=== PATIENT | male | born 1945 | race Caucasian/White ===

== ENCOUNTER → 2017-12-22 09:59 | Outpatient (CLI) | payer MEDICARE, SELFPAY ==
[2017-12-22 11:30] LABS: AST(SGOT) 18 U/L (15-37); Alanine Aminotransfer ALT/SGPT 26 U/L (16-61); Albumin, Serum 3.6 g/dL (3.2-5.0); Alkaline Phosphatase 54 U/L (45-117); Bilirubin, Direct 0.18 mg/dL (0.00-0.30); Cholesterol 123 mg/dL (200); Globulin 3.1 g/dL (2.2-4.2); High Density Lipoprotein 30 mg/dL; Protein, Total 6.7 g/dL (6.4-8.2); Triglycerides 210 mg/dL; Very Low Density Lipoprotein 42 mg/dL (5-40)
== END ==
PROVIDERS: Family Provider Family Medicine; PCP Family Medicine; Visit Provider Internal Medicine Cardiovascular Disease
DX: E78.5 Hyperlipidemia, unspecified (principal); Z79.899 Other long term (current) drug therapy
CPT/HCPCS: 36415; 80061; 80076

== ENCOUNTER → 2018-01-18 06:23 | Outpatient (CLI) | payer MEDICARE, SELFPAY ==
--- NOTE | 2018-01-18 06:25 | ECHOD_ITS ---
Reason For Study: CAD, CABG Procedure This was a 2D Doppler, Color Flow transthoracic echocardiogram. Exam performed in department. Left Ventricle Normal LV size. The estimated ejection fraction is 50 %. Left ventricular systolic function is lower limits of normal. Transmitral doppler flow suggestive of elevated left atrial pressure. No regional wall motion abnormalities noted. Mitral Valve Normal mitral valve. Mild (1+) eccentric mitral valve insufficiency. Tricuspid Valve Normal tricuspid valve. Mild (1+) tricuspid valve insufficiency. Pulmonary artery systolic pressure is 25 mmHg. Aortic Valve Normal aortic valve. Trisinus/trileaflet aortic valve. Pulmonic Valve Normal pulmonic valve. Great Vessels Normal aortic root. The pulmonary artery is normal size. Normal inferior vena cava. Pericardium/Pleural No pericardial effusion. Medication Diluted definity 2ml given slow IV push to enhance endocardial definition. MMode/2D Measurements & Calculations LVIDd: 5.6 cm IVSd: 1.0 cm Ao root diam: 3.5 cm LVIDs: 4.0 cm LVPWd: 0.93 cm LA dimension: 4.3 cm FS: 29.6 % LAV(MOD-bp): 53.8 ml LA A4 area: 20.4 cm2 RA A4 area: 18.2 cm2 LAV(MOD-bp) Indexed: 24.5 ml/m2 LAV(MOD-sp2): 47.8 ml LAV(MOD-sp4): 60.8 ml Doppler Measurements & Calculations MV E max kishor: 55.2 cm/sec Lat Peak E' Kishor: 7.6 cm/sec Med Peak E' Kishor: 4.6 cm/sec MV A max kishor: 60.5 cm/sec E/E' lat: 7.2 E/E' med: 12.0 MV E/A: 0.91 Ao V2 max: 126.6 cm/sec LV V1 max: 109.0 cm/sec PA V2 max: 150.1 cm/sec Ao max P.4 mmHg LV V1 max P.8 mmHg TR max kishor: 227.1 cm/sec TR max P.6 mmHg Interpretation Summary Normal LV size. The estimated ejection fraction is 50 %. Left ventricular systolic function is lower limits of normal. Transmitral doppler flow suggestive of elevated left atrial pressure. Mild (1+) eccentric mitral valve insufficiency. Mild (1+) tricuspid valve insufficiency. Ordering Physician: Shai Rodriguez Referring Physician: Paulo Tate Performed By: Tamiko Escobedo RDCS
--- NOTE | 2018-01-18 15:24 | STRESSREP ---
Stress Test Report Exercise myocardial perfusion stress test. 72-year-old man with a history of coronary artery disease. Medications atenolol ramipril aspirin. Stress protocol: Resting EKG demonstrates normal sinus rhythm with a rate of 57 bpm incomplete left bundle branch block is noted. The patient exercised according to the regular Milind protocol for total duration of 9 minutes completing stage III of the Milind protocol the maximum heart rate attained was 1 and 37 bpm was 91% maximum predicted heart rate the maximum workload attained was 10.1 metabolic equivalents. At rest there were no ST or T-wave changes noted suggest ischemia peak exercise upsloping ST changes only were noted with no meet the criteria for ischemia. Incomplete left bundle branch block was noted. No clinical angina was present. The test was terminated due to leg fatigue. The resting blood pressure is 140/82 with a peak blood pressure 174/70. Myocardial perfusion protocol. 14.6 mCi of technetium 99m sestamibi was injected at rest. The patient exercised according to regular Milind protocol for 9 minutes. At peak exercise 44.4 mCi of technetium 99m sestamibi was injected stress images were obtained stress and rest images were reconstructed and compared in the short axis vertical long and horizontal long axis. Gated images were also obtained. Perfusion SPECT analysis. Review of the images demonstrate normal uptake of tracer noted in all areas of the myocardium with a small area of the apex with reduced perfusion. This is present on the stress and rest images to a similar extent. No areas of reversibility are noted suggest ischemia. Previous apical infarct cannot be completely excluded. Gated SPECT analysis: The gated ejection fraction is noted to be 60%. Conclusion: Exercise myocardial perfusion stress test with no evidence of ischemia at a high workload. Excellent functional aerobic capacity. No clinical angina noted. Preserved ejection fraction.
== END ==
PROVIDERS: Family Provider Family Medicine; PCP Family Medicine; Visit Provider Internal Medicine Cardiovascular Disease
DX: I25.10 Atherosclerotic heart disease of native coronary artery without angina pectoris (principal); Z95.1 Presence of aortocoronary bypass graft
CPT/HCPCS: 78452; 93017; 93306; A9500; Q9957; A4216

== ENCOUNTER → 2018-12-24 08:57 | Outpatient (CLI) | payer MEDICARE, SELFPAY ==
[2017-12-25 13:06] VITALS: BMI 33.0
[2018-12-24 10:06] LABS: AST(SGOT) 18 U/L (15-37); Alanine Aminotransfer ALT/SGPT 25 U/L (16-61); Albumin, Serum 3.9 g/dL (3.2-5.0); Alkaline Phosphatase 58 U/L (45-117); Bilirubin, Direct 0.22 mg/dL (0.00-0.30); Cholesterol 122 mg/dL (200); Globulin 3.1 g/dL (2.2-4.2); High Density Lipoprotein 39 mg/dL; Triglycerides 168 mg/dL; Very Low Density Lipoprotein 34 mg/dL (5-40)
== END ==
PROVIDERS: Family Provider Family Medicine; PCP Family Medicine; Referring Provider Internal Medicine Cardiovascular Disease; Visit Provider Internal Medicine Cardiovascular Disease
DX: E78.5 Hyperlipidemia, unspecified (principal); Z79.899 Other long term (current) drug therapy
CPT/HCPCS: 36415; 80061; 80076

== ENCOUNTER → 2019-02-28 13:01 | Outpatient (CLI) | payer MEDICARE, SELFPAY ==
[2018-12-28 13:08] VITALS: BMI 33.5
--- NOTE | 2019-02-28 13:45 | MRI_ITS ---
STUDY: MRI BRAIN WITH AND WITHOUT CONTRAST (ATTENTION INTERNAL AUDITORY CANALS - I.A.C.'s) REASON FOR EXAM: Male, 73 years old. Left-sided hearing loss TECHNIQUE: Standardized multiplanar fat and water weighted pulse sequences were obtained. 20 IV Dotarem was administered for the contrast portion of the examination. COMPARISON: None. FINDINGS: Normal bilateral temporal bones. Normal bilateral internal auditory canals. There is no demonstrated intracanalicular or cisternal vestibular schwannoma (acoustic neuroma). There is no enhancement of the bilateral VIIth or VIIIth cranial nerves. Normal bilateral cochlea, vestibules and semicircular canals. Normal size of the ventricles and extra-axial spaces for the patient's age. There are a limited number of small white matter hyperintensities, distributed throughout the deep white matter tracts of the cerebral hemispheres, consistent with mild chronic white matter ischemic changes. Normal bilateral basal ganglia. Normal thalami. Normal flow voids within the major intracranial circulation suggesting patency by spin echo criteria. Normal venous enhancement. There is no enhancing intra-axial or extra-axial abnormality. There is no extra-axial fluid accumulation. Normal sella turcica, pituitary gland, infundibular stalk, optic chiasm and hypothalamus. Normal tectal plate and pineal gland. Normal midbrain, rosales and medulla. Normal cerebellum. Normal basal cisterns. No demonstrated orbital abnormality, within the constraints of a routine brain study. Bilateral ethmoid sinus disease. Normal calvarium and skull base. Normal visualized soft tissue structures. Normal visualized upper cervical spine. MRI/Brain W/WO Contrast IMPRESSION: Normal unenhanced and enhanced MRI of the bilateral internal auditory canals (I.A.C's). No evidence of acute intra-axial pathology. Electronically Signed: Ronnie Rodriguez MD at 15:28 EDT Tel , Service support ,
[2019-02-28 13:46] LABS: EGFR FINGERSTICK > 60.0000 mL/min (>60)
== END ==
PROVIDERS: Family Provider Family Medicine; PCP Family Medicine; Referring Provider Otolaryngology; Visit Provider Otolaryngology
DX: H91.90 Unspecified hearing loss, unspecified ear (principal)
CPT/HCPCS: 70553; A9575

== ENCOUNTER 2019-10-18 16:14 | Emergency (ER) | payer MEDICARE, SELFPAY ==
[2018-12-28 13:08] VITALS: BMI 33.5
[2019-10-18 16:16] VITALS: PULSE 65; RESP 16; TEMP 36.8; O2SAT 96; BMI 33.5
[2019-10-18 16:22] VITALS: BP 140/89
--- NOTE | 2019-10-18 16:24 | RAD_ITS ---
STUDY: X-RAY CHEST REASON FOR EXAM: Male, 73 years old. Chest pain TECHNIQUE: Frontal and lateral views of the chest COMPARISON: 07/12/2011 FINDINGS: The lungs are clear. There are no pleural effusions. There is no pneumothorax. The heart is normal in size. Again noted are sternotomy wires. The visualized osseous structures are within normal limits. RAD/Chest PA and Lateral IMPRESSION: No acute thoracic pathology. Electronically Signed: Gino Newsome, at 16:56 EST Tel , Service support ,
--- NOTE | 2019-10-18 16:24 | EKG12_ITS ---
Test Reason : Blood Pressure : / mmHG Vent. Rate : 064 BPM Atrial Rate : 064 BPM P-R Int : 202 ms QRS Dur : 136 ms QT Int : 412 ms P-R-T Axes : -09 -71 015 degrees QTc Int : 425 ms Normal sinus rhythm Left axis deviation Non-specific intra-ventricular conduction block Inferior infarct , age undetermined Cannot rule out Anterior infarct , age undetermined Abnormal ECG Confirmed by GUANACO MCALLISTER ([id number]), general expeditor BRIE BOYD ([id number]) on 10/20/2019 10:43:58 AM Referred By: RICHIE Confirmed By:GUANACO MCALLISTER
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
[2019-10-18 18:07] VITALS: BP 125/76; PULSE 57; RESP 18; O2SAT 91
== END 2019-10-18 18:57 | disposition home or self-care (01) ==
PROVIDERS: Emergency Provider Emergency Medicine; Family Provider Family Medicine; PCP Family Medicine
DX: R07.9 Chest pain, unspecified (principal); J06.9 Acute upper respiratory infection, unspecified; I25.10 Atherosclerotic heart disease of native coronary artery without angina pectoris; I10 Essential (primary) hypertension; E78.5 Hyperlipidemia, unspecified; Z79.82 Long term (current) use of aspirin; Z79.899 Other long term (current) drug therapy; Z86.718 Personal history of other venous thrombosis and embolism; Z95.5 Presence of coronary angioplasty implant and graft
CPT/HCPCS: 71046; 84484; 93005; 99284; A4216

== ENCOUNTER → 2019-12-24 09:03 | Outpatient (CLI) | payer MEDICARE, SELFPAY ==
[2019-12-24 10:30] LABS: AST(SGOT) 16 U/L (15-37); Alanine Aminotransfer ALT/SGPT 22 U/L (16-61); Albumin, Serum 3.7 g/dL (3.2-5.0); Alkaline Phosphatase 54 U/L (45-117); Bilirubin, Direct 0.14 mg/dL (0.00-0.30); Cholesterol 127 mg/dL (200); Globulin 3.1 g/dL (2.2-4.2); High Density Lipoprotein 31 mg/dL; Protein, Total 6.8 g/dL (6.4-8.2); Triglycerides 225 mg/dL; Very Low Density Lipoprotein 45 mg/dL (5-40)
== END ==
PROVIDERS: PCP Family Medicine; Referring Provider Internal Medicine Cardiovascular Disease; Visit Provider Internal Medicine Cardiovascular Disease
DX: E78.5 Hyperlipidemia, unspecified (principal)
CPT/HCPCS: 36415; 80061; 80076

== ENCOUNTER → 2020-05-31 | Outpatient (CLI) | payer MEDICARE, SELFPAY ==
[2020-02-09 15:20] VITALS: BMI 31.2
== END | disposition home or self-care (01) ==
LOC: LABSPEC 17:48
PROVIDERS: PCP Family Medicine; Referring Provider Nurse Practitioner Primary Care; Visit Provider Nurse Practitioner Primary Care
DX: Z11.59 Encounter for screening for other viral diseases (principal)
CPT/HCPCS: 87635; 94799; U0003

== ENCOUNTER → 2020-07-10 08:34 | Outpatient (CLI) | payer MEDICARE, SELFPAY ==
[2020-02-09 15:20] VITALS: BMI 31.2
[2020-07-10 09:20] LABS: AST(SGOT) 17 U/L (15-37); Alanine Aminotransfer ALT/SGPT 24 U/L (16-61); Albumin, Serum 3.8 g/dL (3.2-5.0); Alkaline Phosphatase 59 U/L (45-117); Bilirubin, Direct 0.26 mg/dL (0.00-0.30); Cholesterol 116 mg/dL (200); Globulin 3.1 g/dL (2.2-4.2); High Density Lipoprotein 36 mg/dL; Protein, Total 6.9 g/dL (6.4-8.2); Triglycerides 163 mg/dL; Very Low Density Lipoprotein 33 mg/dL (5-40)
== END ==
PROVIDERS: PCP Family Medicine; Referring Provider Internal Medicine Cardiovascular Disease; Visit Provider Internal Medicine Cardiovascular Disease
DX: E78.5 Hyperlipidemia, unspecified (principal)
CPT/HCPCS: 36415; 80061; 80076

== ENCOUNTER → 2021-01-31 08:37 | Outpatient (CLI) | payer MEDICARE, SELFPAY ==
[2020-02-09 15:20] VITALS: BMI 31.2
[2021-01-31 09:52] LABS: AST(SGOT) 16 U/L (15-37); Alanine Aminotransfer ALT/SGPT 22 U/L (16-61); Albumin, Serum 3.6 g/dL (3.2-5.0); Alkaline Phosphatase 56 U/L (45-117); Bilirubin, Direct 0.19 mg/dL (0.00-0.30); Cholesterol 119 mg/dL (200); Globulin 3.1 g/dL (2.2-4.2); High Density Lipoprotein 39 mg/dL; Protein, Total 6.7 g/dL (6.4-8.2); Triglycerides 165 mg/dL; Very Low Density Lipoprotein 33 mg/dL (5-40)
== END ==
PROVIDERS: PCP Family Medicine; Referring Provider Internal Medicine Cardiovascular Disease; Visit Provider Internal Medicine Cardiovascular Disease
DX: E78.5 Hyperlipidemia, unspecified (principal)
CPT/HCPCS: 36415; 80061; 80076

== ENCOUNTER → 2022-02-22 | Outpatient (CLI) | payer MEDICARE, SELFPAY ==
[2022-02-22 10:09] LABS: AST(SGOT) 15 U/L (15-37); Alanine Aminotransfer ALT/SGPT 21 U/L (16-61); Albumin, Serum 3.6 g/dL (3.2-5.0); Alkaline Phosphatase 48 U/L (45-117); Bilirubin, Direct 0.25 mg/dL (0.00-0.30); Cholesterol 114 mg/dL (200); High Density Lipoprotein 41 mg/dL; Protein, Total 6.6 g/dL (6.4-8.2); Triglycerides 84 mg/dL; Very Low Density Lipoprotein 17 mg/dL (5-40)
== END | disposition home or self-care (01) ==
LOC: LAB 08:55
PROVIDERS: PCP Family Medicine; Referring Provider Internal Medicine Cardiovascular Disease; Visit Provider Internal Medicine Cardiovascular Disease
DX: E78.00 Pure hypercholesterolemia, unspecified (principal)
CPT/HCPCS: 36415; 80061; 80076

== ENCOUNTER → 2022-03-31 | Outpatient (CLI) | payer MEDICARE, SELFPAY ==
--- NOTE | 2022-03-31 18:05 | STRESSREP ---
Stress Test Report Exercise myocardial perfusion stress test. 76-year-old man with a history of coronary artery disease. Stress protocol: Resting EKG demonstrates normal sinus rhythm with a rate of 55 bpm and an incomplete left bundle branch block. Resting blood pressure is 128/80 mmHg. Patient exercised according to regular Milind protocol for total duration of 10 minutes. The maximum heart rate attained was 125 bpm which was 85% of max impacted heart rate the maximum workload was 13.4 metabolic equivalents. Patient completed 1 minute into stage IV of the Milind protocol. At rest there were no ST or T wave changes noted to suggest ischemia at peak exercise upsloping ST changes were noted which did not meet the criteria for ischemia. The incomplete left bundle branch block pattern was noted. No chest pain was noted the test was terminated due to target heart rate being achieved. The peak blood pressure was 160/74 mmHg. Myocardial perfusion protocol. 14.4 mCi of technetium 99m sestamibi was injected at rest. The patient exercised according to regular Milind protocol for total duration of 10 minutes. At peak exercise 44.7 mCi of technetium 99m sestamibi was injected stress images were obtained stress and rest images were reconstructed in comparing the short axis vertical long and horizontal long axis. Gated images were also obtained. Perfusion SPECT analysis: Review of the stress images demonstrate normal uptake of tracer noted in all areas of the myocardium except for the distal anterior wall and apex with reduced perfusion. The rest of the shetty appear to be normal. The resting images demonstrate a similar pattern with minimal improvement suggesting a previous distal anterior apical infarct with minimal hany-infarct ischemia present. Gated SPECT analysis: The gated ejection fraction is 59%. Conclusion: Exercise myocardial perfusion stress test with no significant ischemia noted. 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 Excellent functional capacity Preserved ejection fraction.
== END | disposition home or self-care (01) ==
PROVIDERS: PCP Family Medicine; Referring Provider Internal Medicine Cardiovascular Disease; Visit Provider Internal Medicine Cardiovascular Disease
DX: I25.10 Atherosclerotic heart disease of native coronary artery without angina pectoris (principal); Z95.1 Presence of aortocoronary bypass graft
CPT/HCPCS: 78452; 93017; A9500

== ENCOUNTER → 2022-04-02 | Outpatient (CLI) | payer MEDICARE, SELFPAY ==
--- NOTE | 2022-04-02 07:51 | ECHOD_ITS ---
Reason For Study: S/P CABG Procedure This was a 2D Doppler, Color Flow transthoracic echocardiogram. Exam performed in department. Left Ventricle Normal LV size. The estimated ejection fraction is 40 %. Stage 1 diastolic dysfunction. There is mild global hypokinesis of the left ventricle. Right Ventricle Normal RV size. Normal systolic function. Atria Normal left atrium. Normal right atrium. Mitral Valve Normal mitral valve. Trivial eccentric mitral valve insufficiency. Tricuspid Valve Normal tricuspid valve. Mild (1+) tricuspid valve insufficiency. Pulmonary artery systolic pressure is 26 mmHg. Aortic Valve Normal aortic valve. Trisinus/trileaflet aortic valve. Pulmonic Valve Normal pulmonic valve. Trivial pulmonic valve insufficiency. Great Vessels Normal aortic root. The pulmonary artery is normal size. Normal inferior vena cava. Pericardium/Pleural No pericardial effusion. MMode/2D Measurements & Calculations LVIDd: 5.4 cm IVSd: 0.91 cm Ao root diam: 3.4 cm LVIDs: 3.8 cm LVPWd: 0.93 cm RVDd: 4.2 cm FS: 30.0 % LAV(MOD-bp): 56.5 ml LVAd ap4: 34.6 cm2 SV(MOD-sp4): 64.9 ml LAV(MOD-bp) Indexed: 27.1 ml/m2 LVLd ap4: 7.8 cm LAV(MOD-sp2): 51.8 ml EDV(MOD-sp4): 125.5 ml LAV(MOD-sp4): 55.9 ml EDV(sp4-el): 131.0 ml LVAs ap4: 22.2 cm2 LVLs ap4: 7.0 cm ESV(MOD-sp4): 60.6 ml ESV(sp4-el): 60.2 ml EF(MOD-sp4): 51.7 % EF(sp4-el): 54.0 % SV(sp4-el): 70.8 ml LA A4 area: 19.2 cm2 LA dimension(2D): 4.9 cm RA A4 area: 19.2 cm2 Time Measurements MV dec time: 0.23 sec Doppler Measurements & Calculations MV E max kishor: 65.3 cm/sec Lat Peak E' Kishor: 11.1 cm/sec Med Peak E' Kishor: 5.7 cm/sec MV A max kishor: 77.4 cm/sec E/E' lat: 5.9 E/E' med: 11.5 MV E/A: 0.84 Ao V2 max: 128.2 cm/sec LV V1 max: 116.1 cm/sec PA V2 max: 169.6 cm/sec Ao max P.6 mmHg LV V1 max P.4 mmHg PI end-d kishor: 91.8 cm/sec TR max kishor: 238.6 cm/sec TR max P.8 mmHg ECHO/Echo Complete Interpretation Summary Normal LV size. The estimated ejection fraction is 40 %. There is mild global hypokinesis of the left ventricle. Stage 1 diastolic dysfunction. Compared to previous study, the left ventricular systolic function has worsened .. Ordering Physician: Shai Rodriguez Referring Physician: LEONARDO BARRAGAN Performed By: Tova Crabtree RDCS
== END | disposition home or self-care (01) ==
PROVIDERS: PCP Family Medicine; Referring Provider Internal Medicine Cardiovascular Disease; Visit Provider Internal Medicine Cardiovascular Disease
DX: I25.10 Atherosclerotic heart disease of native coronary artery without angina pectoris (principal); Z95.1 Presence of aortocoronary bypass graft
CPT/HCPCS: 93306

== ENCOUNTER → 2022-07-14 | Outpatient (CLI) | payer MEDICARE, SELFPAY ==
--- NOTE | 2022-07-14 14:09 | ECHOL_ITS ---
Version 2 Reason For Study: CMP Procedure This was a limited 2D transthoracic echocardiogram. Exam performed in department. Left Ventricle Normal LV size. Left ventricular systolic function is normal. The estimated ejection fraction is 45 %. There is mild global hypokinesis of the left ventricle. Right Ventricle Normal RV size. Normal systolic function. Atria Normal left atrium. Normal right atrium. Mitral Valve Normal mitral valve. Tricuspid Valve Normal tricuspid valve. Aortic Valve Normal aortic valve. Trisinus/trileaflet aortic valve. Pulmonic Valve Normal pulmonic valve. Great Vessels Normal aortic root. The pulmonary artery is normal size. Normal inferior vena cava. Pericardium/Pleural No pericardial effusion. MMode/2D Measurements & Calculations LVIDd: 5.8 cm IVSd: 1.3 cm Ao root diam: 3.0 cm LVIDs: 4.1 cm LVPWd: 0.97 cm FS: 29.0 % LAV(MOD-bp): 75.1 ml LVAd ap4: 36.1 cm2 SV(MOD-sp4): 74.9 ml LAV(MOD-bp) Indexed: 36.0 ml/m2 LVLd ap4: 8.4 cm LAV(MOD-sp2): 79.2 ml EDV(MOD-sp4): 131.8 ml LAV(MOD-sp4): 64.0 ml EDV(sp4-el): 132.1 ml LVAs ap4: 22.1 cm2 LVLs ap4: 7.4 cm ESV(MOD-sp4): 57.0 ml ESV(sp4-el): 56.3 ml EF(MOD-sp4): 56.8 % EF(sp4-el): 57.4 % SV(sp4-el): 75.8 ml LA A4 area: 21.6 cm2 LA dimension(2D): 4.9 cm RA A4 area: 23.6 cm2 ECHO/Echo, Limited Study Interpretation Summary Normal LV size. Left ventricular systolic function is normal. The estimated ejection fraction is 45 %. There is mild global hypokinesis of the left ventricle. Trisinus/trileaflet aortic valve. Compared to previous study, the left ventricular systolic function is the same. . Ordering Physician: Shai Rodriguez Performed By: Marilee Starks RCS
== END | disposition home or self-care (01) ==
PROVIDERS: PCP Family Medicine; Visit Provider Internal Medicine Cardiovascular Disease
DX: I42.8 Other cardiomyopathies (principal); I25.10 Atherosclerotic heart disease of native coronary artery without angina pectoris; I10 Essential (primary) hypertension; E78.00 Pure hypercholesterolemia, unspecified; Z95.1 Presence of aortocoronary bypass graft
CPT/HCPCS: 93308

== ENCOUNTER → 2023-04-30 | Outpatient (CLI) | payer MEDICARE, SELFPAY ==
[2023-04-30 15:15] LABS: AST(SGOT) 15 U/L (15-37); Alanine Aminotransfer ALT/SGPT 19 U/L (16-61); Albumin, Serum 3.5 g/dL (3.2-5.0); Alkaline Phosphatase 47 U/L (45-117); Bilirubin, Direct 0.23 mg/dL (0.00-0.30); Cholesterol 105 mg/dL (200); High Density Lipoprotein 39 mg/dL; Protein, Total 6.5 g/dL (6.4-8.2); Triglycerides 147 mg/dL; Very Low Density Lipoprotein 29 mg/dL (5-40)
== END | disposition home or self-care (01) ==
LOC: LAB 13:33
PROVIDERS: PCP Family Medicine; Referring Provider Internal Medicine Cardiovascular Disease; Visit Provider Internal Medicine Cardiovascular Disease
DX: E78.00 Pure hypercholesterolemia, unspecified (principal)
CPT/HCPCS: 36415; 80061; 80076

== ENCOUNTER → 2024-05-10 | Outpatient (CLI) | payer MEDICARE, SELFPAY ==
[2024-05-10 09:46] LABS: AST(SGOT) 13 U/L (15-37); Alanine Aminotransfer ALT/SGPT 19 U/L (16-61); Albumin, Serum 3.5 g/dL (3.2-5.0); Alkaline Phosphatase 49 U/L (45-117); Bilirubin, Direct 0.25 mg/dL (0.00-0.30); Cholesterol 102 mg/dL (200); High Density Lipoprotein 39 mg/dL; Protein, Total 6.5 g/dL (6.4-8.2); Triglycerides 112 mg/dL; Very Low Density Lipoprotein 22 mg/dL (5-40)
== END | disposition home or self-care (01) ==
LOC: LAB 08:20
PROVIDERS: PCP Family Medicine; Referring Provider Nurse Practitioner Family; Visit Provider Nurse Practitioner Family
DX: E78.00 Pure hypercholesterolemia, unspecified (principal); I25.10 Atherosclerotic heart disease of native coronary artery without angina pectoris
CPT/HCPCS: 36415; 80061; 80076

== ENCOUNTER 2024-10-08 15:36 | Emergency (ER) | payer MEDICARE, SELFPAY ==
[2024-10-08 15:38] VITALS: BP 141/91; PULSE 71; RESP 18; TEMP 35.5; O2SAT 100; BMI 29.0
[2024-10-08 17:37] VITALS: BP 138/79; PULSE 60; RESP 18; O2SAT 98
--- NOTE | 2024-10-08 17:38 | CT_ITS ---
EXAMINATION : Head CT w/out contrast HISTORY : confusion, fall COMPARISON : None. TECHNIQUE : Multiple contiguous axial images were obtained from the skull base to the vertex without intravenous contrast. A radiation dose optimization technique was used for this scan. FINDINGS : There is no evidence for acute intracranial hemorrhage, mass effect, or midline shift. There is no extra-axial fluid collection. There are periventricular white matter changes consistent with chronic microvascular ischemic disease. There is sulcal widening and ventricular enlargement consistent with cerebral atrophy. There is normal slater-white differentiation, without CT evidence of acute ischemia or infarct. Left frontal encephalomalacia. The skull base and calvarium are unremarkable. The orbits are unremarkable. The paranasal sinuses are clear. The mastoid air cells are well-aerated. The soft tissues are unremarkable. CT/Brain/Head without Contrast IMPRESSION: No acute intracranial abnormality. Left frontal encephalomalacia. Chronic involutional and ischemic changes of the brain. Electronically Signed: Maurice Ray MD at 19:57 EST ,
--- NOTE | 2024-10-08 17:38 | CT_ITS ---
INDICATION: pain, fall EXAMINATION: CT CERVICAL SPINE - CT Spine Cervical W/O Contrast Injection TECHNIQUE: Helically acquired images were obtained of the cervical spine. 2D reformatted images were reviewed. A radiation dose optimization technique was used for this scan. IV Contrast dosage and agent: None. COMPARISON: None. FINDINGS: VERTEBRAE: No fracture or traumatic subluxation. No discrete lytic or blastic abnormality. Normal alignment. Normal craniocervical junction and cervicothoracic junction. DISCS and SPINAL CANAL: Moderate multilevel degenerative disease and spondylosis. No critical stenosis. NECK SOFT TISSUES: No prevertebral soft tissue swelling. There is no cervical adenopathy. LUNG APICES: Clear. CT/Spine Cervical without Contras IMPRESSION: No evidence of acute cervical spinal fracture or spondylolisthesis. Moderate multilevel degenerative disc disease and spondylosis. Electronically Signed: Maurice Ray MD at 19:59 EST ,
--- NOTE | 2024-10-08 17:39 | EDS_ITS ---
HPI History of Present Illness Chief Complaint: Confusion Informant: patient and spouse/S.O. Narrative Narrative: Patient is a 78-year-old male with history of nonischemic cardiomyopathy, coronary artery disease status post CABG 2003, hypertension hyperlipidemia p resenting with for concern of increased confusion. Patient has been having issues with right-sided neck stiffness and pain rating to his back for the past 2 weeks. He initially was seen at his primary care office on September 26 where he was given a Medrol Dosepak and started on Flexeril 5 mg. He states that he started to improve however over the weekend for [place] he tripped over a dog gate laying on his right side. The pain returned. They are going out of town tomorrow to [place] for a and they wanted to make sure he is fine to travel. They had increased him to 10 mg of Flexeril which he started yesterday. Today patient seems more confused. states he always seems like he is drunk but he has not been drinking. States his walking is slouching, his speech is more convoluted and he is messing up things. He seems foggy. She does note that his balance has been off for a little bit of time. She thinks it might be the medication with increase in strength and wanted to make sure expressions are plan ongoing on time. He denies any fever chills, chest pain, shortness of breath, nausea or vomiting or urinary symptoms. No report of any URI symptoms or night sweats. No sick contacts reported. When he fell this last weekend he did not hit his head but did land on his right side. He is not on any blood thinners. Does report some chronic constipation but no acute change in that. [facility] Medical History Non-ischemic cardiomyopathy Essential (primary) hypertension Atherosclerosis of coronary artery of [place] heart without angina pectoris Hyperlipidemia Old myocardial infarction Home Medications ?Medication ?Instructions ?Recorded ?Last Taken ?Type aspirin 81 mg tablet,delayed 81 mg PO QDAY 12/25/17 Unknown History release (Yarely Low Dose Aspirin) multivitamin 1 tab PO QDAY 12/25/17 Unknown History vit C 250 mg-vit E 90 mg-zinc 40 1 tab PO BID 03/01/21 Unknown History mg-copper 1 [id number] capsule (PreserVision AREDS-2) fluticasone propionate 50 50 mcg intranasal DAILY 04/30/23 Unknown History mcg/actuation nasal spray,suspension (Allergy Relief (fluticasone)) nitroglycerin 0.4 mg sublingual 0.4 mg sublingual Q5-15M PRN chest 03/17/24 Unknown Rx tablet pain #25 tabs carvedilol 12.5 mg tablet 12.5 mg PO BID #180 TABLETS 03/21/24 Unknown Rx ramipril 5 mg capsule 5 mg PO DAILY #90 caps 03/21/24 Unknown Rx rosuvastatin 20 mg tablet 20 mg PO DAILY #90 TABLETS 10/06/24 Unknown Rx cyclobenzaprine 10 mg tablet 10 mg PO TID PRN PRN muscle spasm 10/08/24 Unknown History Allergy/AdvReac Type Severity Reaction Status Date / Time animal dander Allergy Unknown runny Verified 10/08/24 15:38 nose, itchy house dust Allergy Unknown unknown Verified 10/08/24 15:38 pollen extracts Allergy Unknown unknown Verified 10/08/24 15:38 iodine Allergy hives Verified 10/08/24 15:38 Family History Brother Myocardial infarction age 60 from [place] Brother Myocardial [place] age 40 Mother Myocardial infarction age 82 from [place] Surgical History H/O Achilles tendon repair H/O coronary artery bypass surgery (07/31/04) History of coronary artery stent placement (1997) Social History Smoking Status: Never smoker alcohol intake: never substance use type: does not use caffeine: Yes Type: carbonated beverages ROS ROS ED Constitutional Constitutional ED: Denies chills or fever(s) Eyes Eyes: Reports other Details: Due to have cataract surgery ENT ENT ED: Denies ear pain, rhinorrhea or sore throat Cardiovascular Cardiovascular: Denies chest pain or palpitations Respiratory/Chest Respiratory/Chest: Denies cough Gastrointestinal Gastrointestinal: Reports constipation; Denies abdominal pain, diarrhea, nausea or vomiting Genitourinary Genitourinary ED: Denies dysuria, hematuria or urinary frequency Musculoskeletal Musculoskeletal: Reports neck pain; Denies arthralgias or myalgias Integumentary Denies rash Neurologic Neurologic: Reports headache(s); Denies paresthesias or weakness Psychiatric Psychiatric: Reports other Details: Mild confusion ; Denies anxiety or depression Hematologic/Lymphatic Hematologic/Lymphatic: Denies easy bleeding or easy bruising EXAM Physical Exam Const Vital Signs: 10/08/24 15:38 10/08/24 17:37 10/08/24 19:00 Temperature 96 F L Temperature Source Temporal Pulse Rate 71 60 65 Respiratory Rate 18 18 18 Blood Pressure 141/91 H 138/79 H 127/90 H Blood Pressure Mean 107 98 102 Pulse Ox 100 98 95 Oxygen Delivery Method Room Air Room Air Room Air Positive well nourished and well developed General Appearance ED: well developed and NAD HEENT Reports TM's clear and moist mucous membranes Negative for trauma Tympanic Membrane ED: Yes TM's clear Eyes PERRL Neck supple and no JVD Neck Narrative: No torticollis. Mild chest palpation over the right trapezius near the neck Chest Wall inspection of chest normal Resp normal respiratory effort and clear to auscultation bilaterally Cardio regular rate, regular rhythm and no murmurs GI normal to inspection, nondistended, normoactive bowel sounds and non-tender Auscultation: normoactive bowel sounds Palpation: soft; Negative for tender or guarding Back/Spine no CVA tenderness Extremity normal to inspection General Extremety ED: Negative for edema or tenderness General Extremity: Negative for edema Neuro oriented x3, CN's II-XII intact bilaterally and no sensory deficits noted Neuro Narrative: Patient sometimes mixes up the month and feels that it is December instead of September. Speech is slurred but not entirely clear either. No focal neurologic deficits. Normal coordination. Normal [id number]. No truncal ataxia. Sensorium / Orientation: alert Motor Exam: strength 5/5 throughout; Negative for general weakness Psych mental status grossly normal Skin no rashes or lesions noted and no wounds MDM MDM MDM Narrative Medical decision making narrative: Patient is noted for increased unsteadiness and confusion. Took a higher dose of cyclobenzaprine for muscle spasm/neck pain. Otherwise no acute process. Did have a low velocity fall couple days ago. No focal deficits on exam. Overall patient is well-appearing. He is reading the in the room. This seems slightly off and this could be a side effect of Flexeril. Suspect mental status change is associated with the increased dose of Flexeril. He does not have any meningeal signs. Lab work looking for cause of altered mental status other than the medication is obtained including urine drug, urinalysis, CMP, CBC and CT of the brain. Workup largely unremarkable. No acute processes found. Patient be ambulated and if he does well will be discharged home with his . I do not think he requires prolonged monitoring in the emergency room. I suspect that as long as the medicine wears off he should be fine. Patient are given return precautions. Lab Data Attestation: I reviewed the patient's lab results. Labs: Laboratory Results - last 24 hr 10/08/24 10/08/24 17:45 17:56 WBC 7.2 RBC 4.81 Hgb 14.5 Hct 42.7 MCV 88.8 MCH 30.1 MCHC 34.0 RDW Std Deviation 40.8 RDW Coeff of [place] 12.5 Plt Count 165 MPV 10.3 Immature Gran % (Auto) 0.300 Neut % (Auto) 63.4 Lymph % (Auto) 21.4 [place] % (Auto) 12.1 H Eos % (Auto) 2.4 Baso % (Auto) 0.4 Absolute Neuts (auto) 4.6 Absolute Lymphs (auto) 1.54 Nucleated RBC % 0 Sodium 139 Potassium 4.3 Chloride 105 Carbon Dioxide 30.0 Anion Gap 4 L BUN 23 H Creatinine 0.97 Estim Creat Clear Calc 73.72 Est GFR (MDRD) Af Amer 97 Est GFR (MDRD) Non-Af 80 BUN/Creatinine Ratio 23.8 H Glucose 114 H Calcium 9.4 Total Bilirubin 0.50 AST 13 L ALT 25 Alkaline Phosphatase 59 Total Protein 6.3 L Albumin 3.3 Globulin 3.0 Albumin/Globulin Ratio 1.1 Urine Color Yellow Urine Clarity Clear Urine pH 6.0 Ur Specific [place] 1.015 Urine Protein Negative Urine Glucose (UA) Normal Urine Ketones Negative Urine Occult Blood Negative Urine Nitrite Negative Urine Bilirubin Negative Urine Urobilinogen Normal Ur Leukocyte Esterase Negative Urine RBC 0-5 SEEN Urine WBC 0-5 SEEN Ur Squamous Epith Cells 0 SEEN Urine Bacteria 0 SEEN Urine Mucus 1+ Urine Opiates Screen NEGATIVE Urine Methadone Screen NEGATIVE Ur Barbiturates Screen NEGATIVE Ur Phencyclidine Scrn NEGATIVE Ur Amphetamines Screen NEGATIVE MDMA (Ecstasy) Screen NEGATIVE U Benzodiazepines Scrn NEGATIVE Urine Cocaine Screen NEGATIVE U Cannabinoids Screen NEGATIVE Ur Drug Screen Comment Radiography Diagnostic Testing: Clinical Impression(s) from Imaging Studies Brain CT 10/08/24 17:38 IMPRESSION: No acute intracranial abnormality. Left frontal encephalomalacia. Chronic involutional and ischemic changes of the brain. Electronically Signed: Maurice Ray MD at 19:57 EST , Cervical Spine CT 10/08/24 17:38 IMPRESSION: No evidence of acute cervical spinal fracture or spondylolisthesis. Moderate multilevel degenerative disc disease and spondylosis. Electronically Signed: Maurice Ray MD at 19:59 EST , Discharge Plan Triage Chief Complaint: Confusion ED Provider: Monica Neil Dx/Rx/DC Orders Clinical Impression: Medication adverse effect Instructions: ED Confusion, ED Drug Reaction, Other Prescriptions: No Action fluticasone propionate [Allergy Relief (fluticasone)] 50 mcg/actuation spray,suspension 50 mcg INTRANASAL DAILY aspirin [Yarely Low Dose Aspirin] 81 mg tablet,delayed release (DR/EC) 81 mg PO QDAY multivitamin tablet 1 tab PO QDAY PreserVision AREDS-2 250-90-40-1 mg capsule 1 tab PO BID cyclobenzaprine 10 mg tablet 10 mg PO TID PRN PRN (Reason: muscle spasm) nitroglycerin 0.4 mg tablet, sublingual 0.4 mg SUBLINGUAL Q5-15M PRN (Reason: chest pain) Qty: 25 6RF Rx Instructions: Take every 5-15 minutes for chest pain do note exceed 3 doses ramipril 5 mg capsule 5 mg PO DAILY Qty: 90 3RF carvedilol 12.5 mg tablet 12.5 mg PO BID Qty: 180 3RF rosuvastatin 20 mg tablet 20 mg PO DAILY Qty: 90 3RF Primary Care Provider: Danie Haines Referrals: Danie Haines MD [Primary Care Provider] - Print Language: Spanish Disposition Disposition: Home, Self Care
[2024-10-08 17:57] LABS: Absolute Lymphocyte Count 1.54 X10^3/uL (0.83-4.51); Absolute Neutrophil Count 4.6 X10^3/uL (2.0-7.7); Basophil# 0.03 X10^3/uL; Basophil% 0.4 % (0-1); Eosinophil# 0.17 X10^3/uL; Eosinophils% 2.4 % (0-5); Hematocrit 42.7 % (40-54); Hemoglobin 14.5 g/dL (13.0-16.5); Lymphocyte # 1.54 X10^3/ul (0.83-4.51); Lymphocyte % 21.4 % (19-41); Mean Corpuscular Hgb 30.1 pg (27.0-32.0); Mean Corpuscular Volume 88.8 fL (80-94); Mean Platelet Vol. 10.3 fl (6.2-12.0); Monocyte# 0.87 X10^3/uL; Monocyte% 12.1 % (0-10); NRBC Flagged by Analyzer 0 % (0-5); Neutrophil # 4.58 X10^3/uL (2.7-7.7); Neutrophil % 63.4 % (47-70); Platelet Count 165 K/mm3 (150-450); RBC Distribution Width CV 12.5 % (11.6-14.6); RBC Distribution Width SD 40.8 fl (35.1-43.9); Red Blood Count 4.81 M/mm3 (4.6-6.2); White Blood Count 7.2 K/mm3 (4.4-11.0)
[2024-10-08 17:58] LABS: POSITIVE COUNT NO; POSITIVE DIFFERENTIAL NO; POSITIVE MORPHOLOGY NO
[2024-10-08 18:07] LABS: Bacteria 0 SEEN /hpf (None Seen); Squamous Epithelial Cells - UA 0 SEEN /hpf (0-5)
[2024-10-08 18:14] LABS: ALB/GLOB Ratio 1.1 RATIO (0.9-2.4); AST(SGOT) 13 U/L (15-37); Alanine Aminotransfer ALT/SGPT 25 U/L (16-61); Albumin, Serum 3.3 g/dL (3.2-5.0); Alkaline Phosphatase 59 U/L (45-117); Anion Gap 4 (5-15); BUN 23 mg/dL (7-18); BUN/Creat Ratio 23.8 RATIO (10-20); Calcium,Total 9.4 mg/dL (8.5-10.1); Chloride 105 mmol/L (98-107); Creatinine, Serum 0.97 mg/dL (0.70-1.30); EST Glomerular Filtration Rate 80 mL/min (>60); Est Glom Filt Rate - Afr Amer 97 mL/min (>60); Estimated Creatinine Clearance 73.72 ml/min; Glucose 114 mg/dL (74-106); Potassium 4.3 mmol/L (3.5-5.1); Protein, Total 6.3 g/dL (6.4-8.2); Sodium Level 139 mmol/L (136-145)
[2024-10-08 18:15] LABS: Color, Urine Yellow (Yellow); Glucose, Dipstick Normal (Normal); Ketone-Dipstick Negative (Negative); Leukocyte Esterase-Dipstick Negative /ul (Negative); Nitrite-Dipstick Negative (Negative); Occult Blood-Urine Negative /ul (Negative); Protein-Dipstick Negative (Negative); Specific Gravity, Urine 1.015 (1.002-1.030); Urine Bilirubin Dipstick Negative (Negative); Urine Clarity Clear (Clear); Urine Urobilinogen Normal (Normal)
[2024-10-08 18:35] LABS: Amphetamine Urine VISTA NEGATIVE (<1000 ng/mL); Barbiturate Urine VISTA NEGATIVE (< 200 ng/mL); Benzodiazepine Urine VISTA NEGATIVE (< 200 ng/mL); Cocaine Urine VISTA NEGATIVE (< 300 ng/mL); Ecstacy Urine VISTA NEGATIVE (< 500 ng/mL); Methadone Urine VISTA NEGATIVE (< 300 ng/mL); PCP Urine VISTA NEGATIVE (< 25 ng/mL); THC Urine VISTA NEGATIVE (< 50 ng/mL); Vista UDS pH Range 5
[2024-10-08 18:48] LABS: Mucous, Urine 1+ /hpf (<or=2+); Red Blood Cells-Urine 0-5 SEEN /hpf (0-5); White Blood Cells 0-5 SEEN /hpf (0-5)
[2024-10-08 19:00] VITALS: BP 127/90; PULSE 65; RESP 18; O2SAT 95
[2024-10-08 20:13] VITALS: BP 121/88; PULSE 66; RESP 16; TEMP 36.8; O2SAT 98
== END 2024-10-08 20:13 | disposition home or self-care (01) ==
PROVIDERS: Emergency Provider Emergency Medicine; PCP Family Medicine; Visit Provider Emergency Medicine
DX: R41.0 Disorientation, unspecified (principal); I42.8 Other cardiomyopathies; R26.81 Unsteadiness on feet; I25.10 Atherosclerotic heart disease of native coronary artery without angina pectoris; I10 Essential (primary) hypertension; M43.6 Torticollis; T50.905A Adverse effect of unspecified drugs, medicaments and biological substances, initial encounter; M54.9 Dorsalgia, unspecified; E78.5 Hyperlipidemia, unspecified; I25.2 Old myocardial infarction; Z79.82 Long term (current) use of aspirin; Z95.1 Presence of aortocoronary bypass graft; Z95.5 Presence of coronary angioplasty implant and graft
CPT/HCPCS: 70450; 72125; 80053; 80307; 81001; 85025; 99283; A4216

== ENCOUNTER → 2024-12-09 | Outpatient (CLI) | payer MEDICARE, SELFPAY ==
[2024-12-09 10:14] LABS: AST(SGOT) 18 U/L (<=37); Alanine Aminotransfer ALT/SGPT 14 U/L (<=46); Albumin, Serum 4.2 g/dL (3.4-4.8); Alkaline Phosphatase 50 U/L (40-129); Bilirubin, Direct 0.34 mg/dL (0.00-0.30); Cholesterol 119 mg/dL (<=200); Globulin 2.3 g/dL (2.2-4.2); High Density Lipoprotein 43 mg/dL; Low Density Lipoprotein Calc. 55 mg/dL; Protein, Total 6.4 g/dL (5.9-8.4); Total Bilirubin 0.84 mg/dL (0.00-1.30); Triglycerides 104 mg/dL; Very Low Density Lipoprotein 21 mg/dL (5-40); cholesterol:hdl ratio screen 2.77
== END | disposition home or self-care (01) ==
LOC: LAB 08:51
PROVIDERS: PCP Family Medicine; Referring Provider Internal Medicine Cardiovascular Disease; Visit Provider Internal Medicine Cardiovascular Disease
DX: E78.00 Pure hypercholesterolemia, unspecified (principal)
CPT/HCPCS: 36415; 80061; 80076

== ENCOUNTER → 2025-05-12 | Outpatient (CLI) | payer MEDICARE, SELFPAY ==
[2025-05-12 12:32] LABS: AST(SGOT) 16 U/L (<=37); Alanine Aminotransfer ALT/SGPT 15 U/L (<=46); Albumin, Serum 4.1 g/dL (3.4-4.8); Alkaline Phosphatase 51 U/L (40-129); Bilirubin, Direct 0.35 mg/dL (0.00-0.30); Cholesterol 110 mg/dL (<=200); Globulin 2.3 g/dL (2.2-4.2); Low Density Lipoprotein Calc. 51 mg/dL; Triglycerides 105 mg/dL; Very Low Density Lipoprotein 21 mg/dL (5-40); cholesterol:hdl ratio screen 2.86
== END | disposition home or self-care (01) ==
PROVIDERS: PCP Family Medicine; Referring Provider Internal Medicine Cardiovascular Disease; Visit Provider Internal Medicine Cardiovascular Disease
DX: E78.00 Pure hypercholesterolemia, unspecified (principal)
CPT/HCPCS: 36415; 80061; 80076

== ENCOUNTER → 2025-07-31 | Outpatient (CLI) | payer MEDICARE, SELFPAY ==
--- NOTE | 2025-07-31 06:34 | ECHOCS_ITS ---
Reason For Study Reason For Study: CARDIOMYOPATHY Procedure This was a 2D Doppler, Color Flow transthoracic echocardiogram. The study was technically difficult. Contrast injection was performed. Exam performed in department. Left Ventricle Normal LV size. Apical false tendon noted. The left ventricular ejection fraction is 50 %. No regional wall motion abnormalities noted. Right Ventricle Normal RV size. Normal systolic function. Atria Normal left atrium. Normal right atrium. Mitral Valve Normal mitral valve. Mild (1+) eccentric mitral valve insufficiency. Tricuspid Valve Normal tricuspid valve. Trivial tricuspid valve insufficiency. Aortic Valve Normal aortic valve. Pulmonic Valve Normal pulmonic valve. Great Vessels Normal aortic root. The pulmonary artery is normal size. Inferior vena cava collapse with respiration. Pericardium/Pleural No pericardial effusion. Medication 22 gauge I.V. with prn adaptor inserted into left arm. Diluted definity 3ml given slow IV push to enhance endocardial definition. MMode/2D Measurements & Calculations LVIDd: 5.6 cm IVSd: 0.96 cm LVOT diam: 2.2 cm LVIDs: 4.4 cm LVPWd: 0.94 cm RVDd: 4.2 cm FS: 21.7 % LVOT area: 4.0 cm2 asc Aorta Diam: 3.7 cm LAV(MOD-bp): 43.6 ml LVAd ap4: 40.1 cm2 LAV(MOD-bp) Indexed: 21.4 ml/m2 LVLd ap4: 8.4 cm LAV(MOD-sp2): 39.2 ml EDV(MOD-sp4): 157.3 ml LAV(MOD-sp4): 46.4 ml EDV(sp4-el): 162.0 ml LVAs ap4: 27.7 cm2 LVLs ap4: 7.8 cm ESV(MOD-sp4): 84.6 ml ESV(sp4-el): 84.1 ml EF(MOD-sp4): 46.2 % EF(sp4-el): 48.1 % LVAd ap2: 35.6 cm2 SV(MOD-sp4): 72.8 ml SV(MOD-sp2): 56.1 ml LVLd ap2: 7.9 cm SI(MOD-sp4): 35.7 ml/m2 SI(MOD-sp2): 27.5 ml/m2 EDV(MOD-sp2): 136.3 ml EDV(sp2-el): 136.8 ml LVAs ap2: 26.2 cm2 LVLs ap2: 7.0 cm ESV(MOD-sp2): 80.2 ml ESV(sp2-el): 83.6 ml EF(MOD-sp2): 41.1 % SV(sp4-el): 77.9 ml Ao sinus diam: 3.[address] Junction: 3.0 cm LA dimension(2D): 4.6 cm LA A4 area: 17.0 cm2 RA A4 area: 14.9 cm2 TAPSE: 1.8 cm Time Measurements MV dec time: 0.33 sec Doppler Measurements & Calculations MV E max kishor: 47.1 cm/sec Lat Peak E' Kishor: 13.6 cm/sec Med Peak E' Kishor: 4.9 cm/sec MV A max kishor: 62.5 cm/sec E/E' lat: 3.5 E/E' med: 9.7 MV E/A: 0.75 MV dec slope: 144.4 cm/sec2 Ao V2 max: 119.9 cm/sec LV V1 max: 106.2 cm/sec Ao max P.7 mmHg LV V1 max P.5 mmHg Ao V2 mean: 93.0 cm/sec LV V1 mean P.3 mmHg Ao mean P.7 mmHg LV V1 mean: 69.8 cm/sec Ao V2 VTI: 26.0 cm LV V1 VTI: 24.1 cm AV (velocity ratio): 0.93 LILIANA(I,D): 3.7 cm2 LILIANA(V,D): 3.5 cm2 SV(LVOT): 95.3 ml PA V2 max: 158.4 cm/sec PI end-d kishor: 99.6 cm/sec TR max kishor: 211.9 cm/sec TR max P.0 mmHg ECHO/Echo Complete W/ Contrast Interpretation Summary Normal LV size. The left ventricular ejection fraction is 50 %. Mild (1+) eccentric mitral valve insufficiency. Compared to previous study, the left ventricular systolic function has improved .. Structurally normal valves. Ordering Physician: Shai Rodriguez Referring Physician: Shai Rodriguez MD Performed By: Caridad Dawson RDCS
--- OUTSIDE RECORDS SUMMARY | 2025-07-31 06:52 | XMS RPT_ITS | CCD ---
Author Organization [facility] Care Team Providers Care Blue Line Trimmer Name Role Phone Angella Nobles Unavailable Unavailable Angella Nobles Unavailable Unavailable Dr. Danie Haines Primary Care Provider Dr. Danie Haines Referring Provider Dr. Shai Rodriguez Attending Provider [phone] Dr. Shai Rodriguez Referring Provider [phone] Dr. Shai Rodriguez Other Provider Leandro Haines MD Primary Care Provider Leandro Haines MD Primary Care Provider Dr. Danie Haines Primary Care Provider Dr. Shai Rodriguez Attending Provider [phone] Danie Haines Referring Provider Leandro Haines MD Primary Care Provider Leandro Haines MD Primary Care Provider Podlogar REHAB DIRECTOR OCCUPATIONAL THERAPIST.Anita BAUTISTA Unavailable Dr. Danie Haines MD Primary Care Provider Dr. Monica Neil DO Attending Provider [phone] Monica Neil DO Emergency Provider [phone] Dr. Shai Rodriguez MD Attending Provider [phone] Dr. Shai Rodriguez MD Referring Provider [phone] Brodie REHAB DIRECTOR OCCUPATIONAL THERAPISTSimona ZALDIVAR Unavailable LEANDRO HAINES Referring Unavailab le LEANDRO HAINES Primary Care Unavailab le Knoble REHAB DIRECTOR OCCUPATIONAL THERAPIST.THERMITE WELDER, Simona Unavailable Yancy HONG, Dr. Helton Primary Care Provider Jennifer HONG, Dr. Gibbons Attending Provider Jennifer HONG, Dr. Gibbons Referring Provider Yancy HONG, Dr. Helton Primary Care Physicia n Jennifer HONG, Dr. Gibbons Attending Physician Yancy HONG, Dr. Helton Referring Provider [phone] Shai Rodriguez Referring Unavailable Bursley, Danie Primary Care Unavailable Jennifer, [place] Attending Unavailable Bursley, Danie Primary Care Unavailable Monica Neil Attending Unavailable Jennifer, Shai Referring Unavailable Bursley, Danie Primary Care Unavailable JenniferShai Attending Unavailable Bursley, Danie Primary Care Unavailable Bursley, Danie Referring Unavailable Jennifer Shai Attending Unavailable Jennifer, Shai Referring Unavailable Bursley, Danie Primary Care Unavailable JenniferDmNorthampton Attending Unavailable HANNAH ARANDA Attending Unavailable LEANDRO HAINES Referring Unavailab le YANCY, LEONORAER B Primary Care Unavailab le LEANDRO HAINES Attending Unavailab le LEANDRO HAINES B Primary Care Unavailab le YANCY, LEONORAER B Referring Unavailab le YANCY, LEONORAER B Primary Care Unavailab le LEONORA HAINESER Jeannie Attending Unavailab le YANCY, LEONORAER B Primary Care Unavailab le LEONORA HAINESER B Attending Unavailab le YANCY, LEONORAER B Primary Care Unavailab le PODLOGARANITA Attending Unavailable LEANDRO HAINES Primary Care Unavailab CATRACHITA Abernathy Attending Unavailabl e SELF Referring Unavailable LEANDRO HAINES B Primary Care Unavailab le PODLOGAR, ANITA Attending Unavailable LEANDRO HAINES Primary Care Unavailab le PODLOGARANITA Attending Unavailable LEANDRO HAINES Primary Care Unavailab le PODLOGAR, ANITA Attending Unavailable LEANDRO HAINES Primary Care Unavailab HANNAH Maldonado Referring Unavailable LEANDRO HAINES Primary Care Unavailab le Allergies Allergy Classification Reported Allergen(s) Allergy Type Date of Onset Reaction(s) Facility Cats (1 source) Cat Animal Allergy (Dander) 1 Cough, Anaphylaxis [facility] Contrast Media (1 source) Contrast media Substance Allergy 9 Itching [facility] Dogs (1 source) Dog Animal Allergy (Dander) 1 Cough [facility] Pollen (1 source) Pollen Substance Allergy 1 Cough [facility] (9 sources) iodine; Translations: [iodine] drug allergy 1 Hives [facility] Work Phone: (20 sources) Cat; Translations: [CATS] Allergy to substance 1 Cough, Anaphylaxis [facility] Work Phone: (20 sources) Contrast media; Translations: [CONTRAST DYE] Propensity to adverse reactions 9 Itching [facility] (20 sources) Dog; Translations: [DOGS] Allergy to substance 1 Cough [facility] Work Phone: (20 sources) Pollen; Translations: [POLLEN] Allergy to substance 1 Cough [facility] Work Phone: (3 sources) house dust allergenic extract Drug Allergy 4 unknown [facility] (3 sources) Pollen Allergy to substance 4 unknown [facility] (4 sources) animal dander; Translations: [animal dander] Allergy to substance 4 runny nose, itchy [facility] (1 source) house dust allergenic extract Drug Allergy 5 [facility] (1 source) Pollen Drug allergy (disorder) 5 [facility] Medications Current Medications Medication Drug Class(es) Dates Sig (Normalized) Sig (Original) aspirin 81 mg delayed release oral tablet (20 sources) Nonsteroidal Anti-inflammatory Drug Start: 02-10-2011 take 1 tablet by mouth once daily ASPIRIN 81 MG TABS One tablet by mouth daily Enteric coated ASPIRIN [id number] Lisset Charles Start: 06-21-2009 Aspirin (Yarely Low Dose Aspirin) 81 mg tablet,delayed release (DR/EC) Active 81 mg PO daily 0 December 25, 2017 12:00am Complies with drug therapy Comment on above: Take one(1) tablet d aily. carbamide peroxide 65 mg/ml otic solution (2 sources) Start: 07-16-2022 End: 07-20-2022 carbamide peroxide (DEBROX) 6.5 % otic solution Use 5 Drops in both ears twice daily for 4 days. 15 mL 1 07/16/2022 07/20/2022 Active Comment on above: Use 5 Drops in both ears twice daily for 4 days. COMPOUNDED PRESCRIPTION (20 sources) Start: 02-18-2012 COMPOUNDED PRESCRIPTION CPAP mask of patient choice and supplies as needed. Dx 780.57 1 Each 0 02/18/2012 Active Comment on above: CPAP mask of patient choice and supplies as needed. Dx 780.57 CPAP/BIPAP/OTHER (15 sources) Start: 01-31-2025 End: 06-17-2052 CPAP/BIPAP/OTHER Type .CPAPSettings into a note to see current settings/supplies/DME information. 1 each 01/31/2025 06/17/2052 Active Start: 02-25-2024 End: 07-12-2051 CPAP/BIPAP/OTHER Type .CPAPS ettings into a note to see current settings/supplies/DME information. 1 Each 02/25/2024 07/12/2051 Active Start: 02-25-2024 End: 07-12-2051 CPAP/BIPAP/OTHER Type .CPAPS ettings into a note to see current settings/supplies/DME information. 1 Each 0 02/25/2024 07/12/2051 Active fluticasone propionate 0.05 mg/actuat metered dose nasal spray (20 sources) Corticosteroid Start: 04-30-2023 Fluticasone Pr opionate (Allergy Relief (Fluticasone)) 50 mcg/actuation spray,suspension Active 50 ug INTRANASAL DAILY April 30, 2023 1:08pm Complies with drug therapy Start: 11-02-2018 take 2 spray(s) by m out once daily fluticasone (FLONASE) 50 mcg/actuation nasal spray Indications: Viral URI with cough Use 2 Sprays in each nostril once daily. Rinse mouth after use. 1 Bottle 1 11/02/2018 Active Start: 12-25-2017 End: 04-30-2023 Fluticasone Propionate (Grover kaykayy Relief (Fluticasone)) 50 mcg/actuation spray,suspension Discontinued 50 ug INTRANASAL TWICE A DAY as needed December 25, 2017 12:00am April 30, 2023 1:09pm Comment on above: Use 2 Sprays in each nostril once daily. Rinse mouth after use. methylPREDNISolone (1 source) Corticosteroid Start: 2023 End: 2023 methylPREDNISolone (MEDROL, NURIA,) 4 mg Dose-Pack Indications: Neck pain Take as instructed per package. 21 tablet 09/26/2024 10/02/2024 Active Multivitamin preparation (3 sources) Start: 2017 take 1 tablet by mouth once daily Multivitamin Active 1 TABLET PO daily December 25, 2017 7:43am Start: 12-25-2017 take 1 tablet by zahra th once daily Multivitamin Active 1 TABLET PO daily December 25, 2017 12:00am multivitamin tablet (20 sources) Start: 12-04-2014 take 1 tablet by mouth once daily multivitamin tablet Take 1 tablet by mouth once daily. 0 12/04/2014 Active Comment on above: Take 1 tablet by zahra th once daily. Multivitamin tablet (3 sources) Start: 12-25-2017 Multivitamin t ablet Active 1 {tbl} PO daily December 25, 2017 12:00am Complies with drug therapy Start: 12-25-2017 Multivitamin t ablet Active 1 {tbl} PO daily December 25, 2017 12:00am rosuvastatin calcium 20 mg oral tablet (20 sources) HMG-CoA Reductase Inhibitor Start: 10-06-2024 take 1 tablet by mouth once daily Rosuvastatin 20 mg tablet Active 20 mg PO DAILY 90 3 October 06, 2024 10:16am Start: 12-25-2017 End: 10-06-2024 take 1 tablet by mouth once daily Rosuvastatin 20 mg tablet Discontinued 20 mg PO DAILY 90 3 August 06, 2023 10:10am October 06, 2024 10:16am Start: 02-10-2011 take 1 tablet by zahra th once daily CRESTOR 40 MG TABS One tablet by mouth daily ROSUVASTATIN CALCIUM [id number] Shai Rodriguez MD Comment on above: Take 1 tablet by zahra once daily. vit A/vit C/vit E/zinc/copper (OCUVITE PRESERVISION ORAL) (20 sources) take 1 tablet by mouth twice daily vit A/vit C/vit E/zinc/copper (OCUVITE PRESERVISION ORAL) Take 1 tablet by mouth twice daily. Active take 1 tablet by mouth twice yolanda ly vit A/vit C/vit E/zinc/copper (OCUVITE PRESERVISION ORAL) Take 1 tablet by mouth twice daily. 0 Active Comment on above: Take 1 tablet by zahra twice daily. Vit C,J-Cw-Qyczo-Lutein-Benson octavio (Preservision Areds-2) 250-90-40-1 mg capsule (6 sources) Start: 03-01-2021 Vit C,L-Un-Hexfc-Lutein-Ze axan (Preservision Areds-2) 250-90-40-1 mg capsule Active 1 TABLET PO TWICE A DAY March 01, 2021 2:55pm Start: 03-01-2021 take 2 capsules by m outh twice daily Vit C,C-Nz-Eantc-Lutein-Zeaxan (Preservision Areds-2) 250-90-40-1 mg capsule Active 1 {tbl} PO TWICE A DAY March 01, 2021 12:00am Complies with drug therapy Start: 03-01-2021 take 2 capsules by m outh twice daily Vit C,D-Zw-Noxki-Lutein-Zeaxan (Preservision Areds-2) 250-90-40-1 mg capsule Active 1 {tbl} PO TWICE A DAY March 01, 2021 12:00am Start: 03-01-2021 Vit C,E-Zn-Behavior Clinician ni-Opazud-Lwfogt (Preservision Areds-2) 250-90-40-1 mg capsule Active 1 TABLET PO TWICE A DAY March 01, 2021 12:00am Completed/Discontinued Medications Medication Drug Class(es) Dates Sig (Normalized) Sig (Original) atenolol 25 mg oral tablet (20 sources) beta-Adrenergic Migel Start: 06-21-2009 End: 07-16-2022 take 1 tablet by mouth once daily Atenolol 25 mg tablet Discontinued 25 mg PO daily 90 3 July 31, 2021 1:44pm April 02, 2022 4:50pm Comment on above: Take one(1) tablet d ailmacy. benzonatate 100 mg oral capsule (6 sources) Non-narcotic Antitussive Start: 12-25-2017 End: 12-28-2018 take 1 capsule by mouth three times daily as needed Benzonatate 100 mg capsule Discontinued 100 mg PO THREE TIMES A DAY as needed December 25, 2017 12:00am December 28, 2018 1:07pm carvedilol 12.5 mg oral tablet (20 sources) alpha-Adrenergic Migel, beta-Adrenergic Migel Start: 07-16-2022 take 1 tablet by mouth twice daily at mealtime carvedilol (COREG) 6.25 mg tablet Indications: CAD (coronary artery disease) Take 1 tablet by mouth twice daily with meals. 07/16/2022 Active Start: 04-18-2022 End: 04-21-2025 take 1 tablet by mouth twice daily Carvedilol 12.5 mg tablet Discontinued 12.5 mg PO TWICE A DAY 180 3 March 21, 2024 8:03am April 21, 2025 1:14pm Start: 04-02-2022 End: 04-18-2022 take 1 tablet by mouth twice daily at mealtime Carvedilol 6.25 mg tablet Discontinued 6.25 mg PO TWICE A DAY 60 2 April 02, 2022 12:00am April 18, 2022 2:38pm must administer with a meal/food Comment on above: Take 1 tablet by zahra twice daily with meals. ciclopirox 80 mg/ml topical solution (9 sources) Start: 05-13-2024 End: 10-08-2024 Ciclopirox 8 % solution Discontinued TOPICAL May 13, 2024 12:00am October 08, 2024 5:21pm Start: 05-13-2024 End: 10-08-2024 Ciclopirox 8 % solution Disc ontinued TOPICAL May 13, 2024 12:00am October 08, 2024 5:21pm End: 10-07-2024 Ciclopirox (LOPROX) 0.77 % g el Apply to affected area two times a day. Patient to start once he recieves 10/07/2024 Discontinued (Course of therapy completed) cyclobenzaprine hydrochloride 10 mg oral tablet (6 sources) Muscle Relaxant Start: 10-07-2024 End: 06-29-2025 take 1 tablet by mouth three times daily as needed for muscle spasms Cyclobenzaprine 10 mg tablet Discontinued 10 mg PO 3 TIMES DAILY NEEDED as needed for muscle spasm October 08, 2024 1:00am June 29, 2025 1:58pm Start: 09-26-2024 End: 10-07-2024 take 1 tablet by mouth three times daily as needed cyclobenzaprine (FLEXERIL) 5 mg tablet Indications: Neck pain Take 1 tablet by mouth three times a day as needed. 30 tablet 09/26/2024 10/07/2024 Discontinued isosorbide (4 sources) Start: 08-23-2014 End: 09-05-2014 take 1 tablet by mouth once daily IMDUR 30 MG [id number]-[id number] One tablet by mouth daily ISOSORBIDE MONONITRATE [id number] Shraddha An RN Start: 08-23-2014 take 1 tablet by zahra once daily IMDUR 30 MG BE02S-VMV One tablet by mouth daily ISOSORBIDE MONONITRATE [id number] Shai Rodriguez MD loratadine 10 mg oral tablet (8 sources) Start: 12-25-2017 End: 12-25-2017 take 1 tablet by mouth once daily Loratadine 10 mg tablet Discontinued 10 mg PO daily December 25, 2017 12:00am December 25, 2017 1:09pm Start: 11-08-2015 LORATADINE 10 MG TABS as needed LORATADINE [id number] Shai Rodriguez MD meloxicam 15 mg oral tablet (6 sources) Nonsteroidal Anti-inflammatory Drug Start: 03-01-2021 End: 02-27-2022 take 1 tablet by mouth once daily as needed Meloxicam 15 mg tablet Discontinued 15 mg PO DAILY as needed March 01, 2021 12:00am February 27, 2022 2:41pm MULTIPLE VITAMIN (2 sources) Start: 05-31-2014 take 1 tablet by mouth once daily ONE DAILY TABS One tablet by mouth daily MULTIPLE VITAMIN [id number] Gay Orosco PA-C 24 hr niacin 1000 mg extended release oral tablet (4 sources) Nicotinic Acid Start: 02-10-2011 End: 12-02-2013 take 1 tablet by mouth twice daily NIACIN ER 1000 MG CR-TABS One tablet by mouth twice daily NIACIN [id number] Lisset M Charles nitroglycerin 0.4 mg sublingual tablet (20 sources) Nitrate Vasodilator Start: 12-25-2021 nitroglycerin sublingual (NITROQUICK) 0.4 mg SL tablet Dissolve 1 tablet under the tongue every 5 minutes as needed for chest pain. 1 Bottle of 25 12/25/2021 Active Start: 02-09-2020 End: 03-17-2024 Nitroglycerin 0.4 mg tablet, sublingual Discontinued 0.4 mg SL every 5 to 15 minutes as needed for chest pain 05 04January 22, 2023 4:44pm March 17, 2024 10:01am Take every 5-15 minutes for chest pain do note exceed 3 doses Start: 02-09-2020 Nitroglycerin Active 0.4 MG SL every 5 to 15 minutes February 09, 2020 3:27pm Take every 5-15 minutes for chest pain do note exceed 3 doses Start: 12-25-2017 End: 02-09-2020 Nitroglycerin 0.4 mg tablet, sublingual Discontinued 0.4 mg SL every 5 to 15 minutes as needed December 25, 2017 12:00am February 09, 2020 3:29pm Start: 02-10-2011 NITROSTAT 0.4 MG SUBL 1 tablet under tongue every 5 min up to 3 X NITROGLYCERIN [id number] Shai Rodriguez MD Comment on above: Dissolve 1 tablet un claude the tongue every 5 minutes as needed for chest pain. ramipril 5 mg oral capsule (20 sources) Angiotensin Converting Enzyme Inhibitor Start: 2 End: 5 take 1 capsule by mouth once daily Ramipril 5 mg capsule Discontinued 5 mg PO DAILY 90 3 April 03, 2025 1:23pm April 04, 2025 11:43am Start: 02-10-2011 take 1 tablet by zahra once daily ALTACE 1.25 MG CAPS One tablet by mouth daily RAMIPRIL [id number] Shai Rodriguez MD Start: 06-21-2009 End: 07-16-2022 take 1 capsule by mouth once daily Ramipril (Altace) 1.25 mg capsule Discontinued 1.25 mg PO daily 90 3 December 05, 2021 9:28am April 02, 2022 4:50pm Comment on above: Take one(1) tablet d aily. Take 1 capsule by mo uth once daily. Simethicone (12 sources) End: 08-27-2023 simethicone (GAS-X ORAL) Take by mouth. 08/27/2023 Discontinued simethicone (GAS -X ORAL) Take by mouth. 0 Active Comment on above: Take by mouth. Problems Active Problems Problem Classification Problem Date Documented Date Episodic/Chronic Acquired foot deformities (1 source) Hammer toe; Translations: [Other hammer toe(s) (acquired), right foot] Chronic Cardiac dysrhythmias (1 source) Cardiac arrhythmia, unspecified; Translations: [Irregular heartbeat] Onset: 02-28-2025 Chronic Complication of device; implant or graft (2 sources) Arteriosclerosis of coronary artery bypass graft; Translations: [Atherosclerosis of coronary artery bypass graft(s) without angina pectoris] Onset: 02-10-2011 02-10-2011 Chronic Conduction disorders (1 source) Nonspecific intraventricular block; Translations: [Intraventricular block] Onset: 02-28-2025 Chronic Congestive heart failure; nonhypertensive (20 sources) Congestive heart failure; Translations: [Heart failure, unspecified] Onset: 07-16-2022 07-16-2022 Chronic Coronary atherosclerosis and other heart disease (20 sources) Atherosclerotic heart disease of zuni coronary artery without angina pectoris; Translations: [Coronary arteriosclerosis] Onset: 07-11-2009 11-19-2016 Chronic Coronary atherosclerosis and other heart disease (4 sources) Presence of aortocoronary bypass graft; Translations: [Aortocoronary bypass status] Onset: 07-31-2004 02-10-2011 Episodic Disorders of lipid metabolism (20 sources) Hyperlipidemia; Translations: [Hyperlipidemia, unspecified] Onset: 07-11-2009 02-10-2011 Chronic E Codes: Adverse effects of medical drugs (3 sources) Adverse reaction to drug; Translations: [Adverse effect of unspecified drugs, medicaments and biological substances, initial encounter] 10-16-2024 Episodic Essential hypertension (8 sources) Essential hypertension; Translations: [Essential (primary) hypertension] Chronic Immunizations and screening for infectious disease (3 sources) Vaccination needed; Translations: [Encounter for immunization] 07-14-2023 Episodic Nonspecific chest pain (8 sources) Chest pain, unspecified; Translations: [Chest pain] Onset: 08-23-2014 08-23-2014 Episodic Other connective tissue disease (1 source) Recurrent falls ; Translations: [Repeated falls] 09-07-2024 Episodic Other connective tissue disease (1 source) Muscle tension pain; Translations: [Myalgia, unspecified site] 10-07-2024 Episodic Other ear and sense organ disorders (1 source) Impacted cerumen of bilateral ears; Translations: [Impacted cerumen, bilateral] Episodic Other hereditary and degenerative nervous system conditions (1 source) Impaired cognition; Translations: [Mild cognitive impairment, so stated] 04-10-2025 Chronic Other hereditary and degenerative nervous system conditions (2 sources) Mild cognitive impairment, so stated; Translations: [Cognitive impairment, mild, so stated] Onset: 07-26-2025 Chronic Other nervous system disorders (1 source) Other symptoms and signs involving cognitive functions and awareness; Translations: [Concern about memory] Onset: 07-26-2025 Episodic Other nutritional; endocrine; and metabolic disorders (10 sources) Body mass index (BMI) 34.0-34.9, adult; Translations: [Body mass index (BMI) 32.0-32.9, adult] Onset: 12-02-2013 Resolved: 11-06-2015 05-22-2017 Chronic Other nutritional; endocrine; and metabolic disorders (20 sources) Familial hypoalphalipoproteinem ia; Translations: [Lipoprotein deficiency] Onset: 11-20-2009 11-20-2009 Chronic Other nutritional; endocrine; and metabolic disorders (20 sources) Obese class I; Translations: [Obesity, unspecified] 03-29-2018 Chronic Other skin disorders (1 source) Seborrheic keratosis; Translations: [Other seborrheic keratosis] 09-28-2023 Episodic Other upper respiratory disease (20 sources) Allergic rhinitis; Translations: [Allergic rhinitis, unspecified] Onset: 02-10-2014 02-10-2014 Chronic Other upper respiratory infections (6 sources) Upper respiratory infection; Translations: [Acute upper respiratory infection, unspecified] 10-19-2019 Episodic Evelyn-; endo-; and myocarditis; cardiomyopathy (except that caused by tuberculosis or sexually transmitted disease) (5 sources) Cardiomyopathy; Translations: [Other cardiomyopathies] Onset: 07-16-2025 05-10-2022 Chronic Residual codes; unclassified (20 sources) Sleep apnea; Translations: [Sleep apnea, unspecified] Onset: 07-11-2009 07-11-2009 Chronic Residual codes; unclassified (4 sources) Obstructive sleep apnea syndrome; Translations: [Obstructive sleep apnea (adult) (pediatric)] Chronic Residual codes; unclassified (1 source) Obstructive sleep apnea (adult) (pediatric); Translations: [HOSSEIN on CPAP] Onset: 09-07-2024 Chronic Residual codes; unclassified (1 source) Past history of procedure; Translations: [Other specified postprocedural states] 11-17-2023 Episodic Superficial injury; contusion (1 source) Contusion of left knee; Translations: [Contusion of left knee, initial encounter] 02-02-2024 Episodic Past or Other Problems Problem Classification Problem Date Documented Date Episodic/Chronic Administrative/socia l admission (4 sources) Memory finding; Translations: [Person with feared health complaint in whom no diagnosis is made] Onset: 04-10-2025 04-10-2025 Episodic Cardiac dysrhythmias (3 sources) Palpitations; Translations: [Palpitations] Onset: 09-07-2024 09-07-2024 Episodic Conditions associated with dizziness or vertigo (2 sources) Lightheadedness; Translations: [Dizziness and giddiness] Onset: 04-10-2025 04-10-2025 Episodic Diabetes mellitus without complication (20 sources) Hyperglycemia; Translations: [Hyperglycemia, unspecified] Onset: 07-11-2009 07-11-2009 Episodic E Codes: Fall (2 sources) Fall in home; Translations: [Unspecified fall, initial encounter] Onset: 02-28-2025 02-02-2024 Episodic Other aftercare (2 sources) Other chcf (current) drug therapy; Translations: [Other chcf (current) drug therapy] Onset: 02-10-2011 02-10-2011 Episodic Other connective tissue disease (20 sources) Right rotator cuff syndrome; Translations: [Unspecified rotator cuff tear or rupture of right shoulder, not specified as traumatic] Onset: 12-08-2016 12-08-2016 Episodic Other connective tissue disease (1 source) Myalgia, unspecified site; Translations: [Muscle tension pain] Onset: 10-07-2024 Episodic Other connective tissue disease (1 source) Repeated falls; Translations: [Frequent falls] Onset: 09-07-2024 Episodic Other injuries and conditions due to external causes (2 sources) Unspecified injury of head, initial encounter; Translations: [Injury of head, initial encounter] Onset: 02-28-2025 Episodic Other injuries and conditions due to external causes (1 source) Unspecified multiple injuries, initial encounter; Translations: [Abrasions of multiple sites] Onset: 02-28-2025 Episodic Other nervous system disorders (2 sources) Spasm; Translations: [Other muscle spasm] Onset: 05-03-2015 05-03-2015 Episodic Other non-traumatic joint disorders (20 sources) Pain in left knee; Translations: [Pain in joint, lower leg] Onset: 08-26-2023 08-12-2023 Episodic Other screening for suspected conditions (not mental disorders or infectious disease) (2 sources) Abnormal electrocardiogram [ECG] [EKG]; Translations: [Left axis deviation] Onset: 02-28-2025 Episodic Other skin disorders (20 sources) Actinic keratosis; Translations: [Actinic keratosis] Onset: 12-25-2021 12-25-2021 Episodic Residual codes; unclassified (1 source) Disorientation, unspecified; Translations: [Disorientation, unspecified] Onset: 11-01-2024 Episodic Spondylosis; intervertebral disc disorders; other back problems (3 sources) Neck pain; Translations: [Cervicalgia] Onset: 10-07-2024 09-26-2024 Episodic Unclassified (2 sources) Family history of ischemic heart disease and other diseases of the circulatory system; Translations: [Family history of ischemic heart disease and other diseases of the circulatory system] 05-03-2015 Episodic Results Test Name Value Interpretation Reference Range Facility [facility] 07-26-2025 CNOV Office Visit (MURIELIWR ) MARISABEL REYNOSO ([id number]) 1945 M Date Time Provider Department 07/26/25 12:30 PM HANNAH ARANDA During your visit today, we recorded the following information about you: Pulse Respiration Blood pressure Weight Normal [facility] TSH SerPl-aCncon 07-26-2025 TSH Qn 2.310 m[IU]/L Normal 0.270-4.20 0 [facility] Comment on above: Order Comment: Speci men Type: BLOOD SPECIMENOrdering Facility: [facility] Address: [address] [place] [address] Performed By: #### [id number] ####[facility] LABCLIA [id number] [address] CNOVon 07-24-2025 CNOV Office Visit (FAMPWS ) MARISABEL REYNOSO ([id number]) 1945 M Date Time Provider Department 07/24/25 1:20 PM LEANDRO HAINESPWS During your visit today, we recorded the following information about you: Temperature Pulse Respiration Blood pressure 98 degrees 78/minute 20/minute 112/62 Weight Height 88.1 kg 1.753 m Leandro Haines MD 07/24/2025 3:15 PM Signed Chief Complaint Patient presents with: Follow Up: Memory concerns Recording using ShopIt software for draft documentation of the visit was discussed with the patient/authorized congressional representative; all questions welcomed and answered. Patient/authorized congressional representative agreed to proceed HPI Marisabel Reynoso is a 79 year old male who presents here today for Above Complaints. Accompanied today by his . Ronak is a 79-year-old male, with a history of mild cognitive impairment, accompanied by his who is providing history on his behalf, presenting for follow-up of worsening memory issues. Memory Issues: - Worsening short-term memory issues since last visit 3.5 months ago. - Difficulty remembering days of the week and time of day. - Recent incidents include getting dressed for nondenominational on a Thursday and preparing to leave for an appointment hours early. - Frequently writes down incorrect dates and times. - Increased reliance on for reminders and assistance. - No new medications or changes in routine reported. - No hallucinations, slurred speech, facial droop, numbness, tingling, weakness, vision changes, or severe headaches. - No recent falls or head injuries. - No slowed movements, speech, or balance issues. - No new shaking or tremors, but reports occasional hand tremors in the morning. - No new symptoms of diabetes, such as polyuria, polydipsia, polyphagia, or numbness/tingling in extremities. - Recent CT scan of the brain and blood work showed no abnormalities. - Under care of two optometrists for vision issues, including double vision and cataract surgery. - Recent hearing aids and glasses on order. - No new medications or changes in routine reported. Past medical history, appointments, medications, allergies reviewed. Previous Medical History PAST MEDICAL HISTORY Diagnosis Date Actinic keratosis CAD (coronary artery disease) Dr. Rodriguez CHF (congestive heart failure) ([facility]) EF 40% 04/2022 Chronic right shoulder pain Diverticulosis of colon (without mention of hemorrhage) Myocardial infarction ([facility]) 07/31/2004 TPA, resolution w/o damage. Nasal polyp left side- seeing Dr. Hanson Obesity (BMI 30.0-34.9) Obstructive sleep apnea [facility] fx [phone] Onychomycosis Other and unspecified hyperlipidemia Prediabetes Unspecified sleep apnea uses C-pap Previous Surgical History PAST SURGICAL HISTORY Procedure Laterality Date COLONOSCOPY FLX DX W/COLLJ SPEC WHEN PFRMD 11/16/09 COLONOSCOPY FLX DX W/COLLJ SPEC WHEN PFRMD 03/27/2020 Colonoscopy HEART SURGERY HX PAST SURGICAL HISTORY OF 07/31/2004 CABG x 6 [facility] PAST SURGICAL HISTORY OF 04/03/1998, Jah , Stent placements single,single,four PAST SURGICAL HISTORY OF 09/20/12 right achilles tendon surgery x 2 PAST SURGICAL HISTORY OF 12/01/12 left pinky finger SIGMOIDOSCOPY FLX DX W/COLLJ SPEC BR/WA IF PFRMD Sigmoidoscopy [facility] Family History FAMILY HISTORY Problem Relation Age of Onset Stroke Mother suspected Asthma Father Heart Attack Brother Cancer Brother Patient Allergies ALLERGIES Allergen Reactions Cats Cough, Anaphylaxis Contrast Dye Itching Dogs Cough Pollen Cough Current Medications Current Outpatient Medications on File Prior to Visit Medication Sig CPAP/BIPAP/OTHER Type .CPAPSettings into a note to see current settings/supplies/DME information. CPAP/BIPAP/OTHER Type .CPAPSettings into a note to see current settings/supplies/DME information. ramipril (ALTACE) 5 mg capsule Take 1 capsule by mouth once daily. carvedilol (COREG) 6.25 mg tablet Take 1 tablet by mouth twice daily with meals. nitroglycerin sublingual (NITROQUICK) 0.4 mg SL tablet Dissolve 1 tablet under the tongue every 5 minutes as needed for chest pain. rosuvastatin (CRESTOR) 20 mg tablet Take 1 tablet by mouth once daily. vit A/vit C/vit E/zinc/copper (OCUVITE PRESERVISION ORAL) Take 1 tablet by mouth twice daily. fluticasone (FLONASE) 50 mcg/actuation nasal spray Use 2 Sprays in each nostril once daily. Rinse mouth after use. multivitamin tablet Take 1 tablet by mouth once daily. COMPOUNDED PRESCRIPTION CPAP mask of patient choice and supplies as needed. Dx 780.57 aspirin(ECOTRIN LOW STRENGTH 81 MG TAB) Take one(1) tablet daily. No current facility-administered medications on file prior to visit. Social History SOCIAL HISTORY[1] Review of Symptoms REVIEW OF SYSTEMS See (more content not included)... Normal [facility] Cardiology Visit Reporton Cardiology Visit Report [facility] [address] [place] [address] OFFICE VISIT Date of Service: 06/29/25 MR#: [id number] Acct: [id number] Name: MARISABEL REYNOSO Rep #: [id number] : 1945 Provider: Dr. Shai Rodriguez MD Age/Sex: 79/M Location: [facility] Status: Signed HPI HPI History of Present Illness Details: MARISABEL REYNOSO, is a 79 M who presents for a office follow-up visit. He is a gentleman with a history of coronary artery disease status post carotid bypass surgery with a left internal mammary artery to the left anterior descending artery saphenous vein graft to the first and second diagonal branch saphenous vein graft to the lateral and posterior descending artery. He had this performed in 2003. He had stenting in in October 1996, May 1197, and March 1998. He underwent echocardiographic evaluation in 2021 which demonstrated an ejection fraction of 45% which was essentially unchanged and a stress test with no evidence of ischemia but a previous apical infarct. He denies chest, arm, jaw, or neck discomfort. He denies palpitations. He denies bilateral lower extremity edema. He denies claudication. He denies shortness of breath with activity, shortness of breath at rest, orthopnea, or PND. He denies chronic cough. He denies significant, sudden weight gain. He denies lightheadedness, dizziness, near-syncope, or syncope. He denies blood in urine, blood in stool, or epistaxis. He denies fever with chills. He denies myalgia. He denies fatigue. His exercise level has remained stable. He exercises regularly. Intake Vital Signs 05/13/24 12:55 10/08/24 15:38 06/29/25 13:55 Height 5 ft 10 in 5 ft 10 in 5 ft 10 in Weight: 194 lb BMI 27.8 BP 113/58 L Blood Pressure Location Rt brachial Position Sitting Respiration 16 Pulse 68 Pulse Source Monitor Intake Visit Reasons: 1 Y FU [employer] Required: No Accompanied by: Self Is patient in pain?: No Allergies animal dander Allergy (Unknown, Verified 06/29/25 13:57) runny nose, itchy house dust Allergy (Unknown, Verified 06/29/25 13:57) unknown pollen extracts Allergy (Unknown, Verified 06/29/25 13:57) unknown iodine Allergy (Verified 06/29/25 13:57) hives Medications ???Medication ???Instructions ???Recorded ???Confirmed ???Type aspirin 81 mg tablet,delayed 81 mg PO QDAY 12/25/17 06/29/25 Hi story release (Yarely Low Dose Aspirin) multivitamin 1 tab PO QDAY 12/25/17 06/29/25 Hi story vit C 250 mg-vit E 90 mg-zinc 40 1 tab PO BID 03/01/21 06/29/25 His tory mg-copper 1 [id number] capsule (PreserVision AREDS-2) fluticasone propionate 50 50 mcg intranasal DAILY 04/30/23 0 06/29/25 History mcg/actuation nasal spray,suspension (Allergy Relief (fluticasone)) nitroglycerin 0.4 mg sublingual 0.4 mg sublingual Q5-15M PRN chest 03/17/24 06/29/25 Rx tablet pain #25 tabs rosuvastatin 20 mg tablet 20 mg PO DAILY #90 TABLETS 4 06/29/25 Rx ramipril 5 mg capsule 5 mg PO DAILY #90 caps 04/04/25 Rx carvedilol 12.5 mg tablet 12.5 mg PO BID #180 TABLETS 06/29/25 Rx Ejection fraction %: 45 Have you fallen in the past year?: Yes PFSH Medical History Non-ischemic cardiomyopathy Essential (primary) hypertension Atherosclerosis of coronary artery of zuni heart without angina pectoris Hyperlipidemia Old myocardial infarction Surgical History Hx of cataract surgery H/O Achilles tendon repair H/O coronary artery bypass surgery (07/31/04) History of coronary artery stent placement (1997) Family History Brother Myocardial infarction age 60 from [place] Brother Myocardial [place] age 40 Mother Myocardial infarction age 82 from [place] Social History Smoking Status: Never smoker alcohol intake: never substance use type: does not use caffeine: Yes Type: carbonated beverages ROS Const Const: Negative for fatigue, weakness, daytime sleepiness or difficulty sleeping ENT ENT: Negative for dizziness or Nosebleed/epistaxis Cardio Chest Pain: No Palpitations: No Edema: None Resp Respiratory: Negative for SOB with activity, SOB at rest, SOB orthopnea SOB lying down or Cough GI GI: Negative nausea, vomiting or heartburn Neuro Neuro: Positive for lightheadedness (change in position ); Negative for dizziness, near syncope or weakness Endo Endo: Negative for fatigue Cardiology Exam Const Appearance: cooperative, healthy appearing, comfortable and no acute distress Nutritional Appearance: well nourished and overweight Orientatio (more content not included)... Normal [facility] Bilirubin directOrdered By: Shai Rodriguez on 05-12-2025 Bilirubin.direct [Mass/Vol] 0.35 mg/dL High 0.00-0.3 0 [facility] Bilirubin, totalOrdered By: Shai Jennifer on 05-12-2025 Bilirubin [Mass/Vol] 0.77 mg/dL 0.00-1.30 [facility] Calculated very low density lipoprotein (VLDL) cholesterol measurementOrdered By: Shai Jennifer on 05-12-2025 Calculated very low density lipoprotein (VLDL) cholesterol measurement 21 mg/dL 5-40 [facility] LDL calc ser/plasOrdered By: Shai Jennifer on 05-12-2025 Cholesterol in LDL [Mass/Vol] 51 mg/dL [facility] Comment on above: Tonjwswgkq=597-746 m g/dL & Higher Aona=216 mg/dL or greaterFriedwald Equation for LDL-C Laboratory - Chemistry and C hemistry - challengeOrdered By: Shai Jennifer on 05-12-2025 AST [Catalytic activity/Vol] 16 U/L <38 [facility] Lipid Profileon 05-12-2025 CHOL:HDL 2.86 Normal [facility] Comment on above: Performed By: #### L 500.0480, L500.3400 #### [facility] [address] [place], [place], [id number] Cholesterol [Mass/Vol] 110 mg/dL Normal <=200 [facility] Comment on above: Result Comment: Chol esterol level, Desirable <200 mg/dL Borderline high cholesterol 200-239 mg/dL High cholesterol >=240 mg/dL Recommendations of the NCEP Adult Treatment Panel for the following risk-cutoff thresholds for the [place] population. Performed By: #### L 500.4100, L500.3400 #### [facility] [address] [place], [address] Cholesterol in HDL [Mass/Vol] 39 mg/dL Low [facility] Comment on above: Result Comment: Yarelis onal Cholesterol Education Program (NCEP) guidelines: <40 mg/dL: Low HDL-cholesterol (major risk factor for CHD) >= 60 mg/dL: High HDL-cholesterol (negative risk factor for CHD) HDL-cholesterol is affected by a number of factors, e.g. smoking, exercise, hormones, sex and age. Performed By: #### L 500.4100, L500.3400 #### [facility] [address] [place], [address] Cholesterol in LDL [Mass/Vol] 51 mg/dL Normal [facility] Comment on above: Result Comment: Bord gsqnxg=355-300 mg/dL Higher Iafr=887 mg/dL or greater Friedwald Equation for LDL-C Performed By: #### L 500.4100, L500.3400 #### [facility] [address] [place], [address] Cholesterol in VLDL [Mass/Vol] 21 mg/dL Normal 5-40 [facility] Comment on above: Performed By: #### L 500.4100, L500.3400 #### [facility] [address] [place], [address] Triglyceride [Mass/Vol] 105 mg/dL Normal [facility] Comment on above: Result Comment: The drugs N-Acetylcysteine and Metamizole may falsely depress this assay. Normal range: <150 mg/dL Borderline High: 150-199 mg/dL High: 200-499 mg/dL Very High: >500 mg/dL Performed By: #### L 500.4100, L500.3400 #### [facility] [address] [place], [address] Liver Profileon 05-12-2025 Albumin [Mass/Vol] 4.1 g/dL Normal 3.4-4.8 [facility] Comment on above: Performed By: #### L 500.4100, L500.3400 #### [facility] [address] [place], [address] ALK PHOS 51 U/L Normal 40-129 [facility] Comment on above: Performed By: #### L 500.4100, L500.3400 #### [facility] [address] [place], [address] ALT [Catalytic activity/Vol] 15 U/L Normal <=46 [facility] Comment on above: Performed By: #### L 500.4100, L500.3400 #### [facility] [address] [place], [address] AST [Catalytic activity/Vol] 16 U/L Normal <=37 [facility] Comment on above: Performed By: #### L 500.4100, L500.3400 #### [facility] [address] [place], [address] Bilirubin [Mass/Vol] 0.77 mg/dL Normal 0.00-1.30 [facility] Comment on above: Performed By: #### L 500.4100, L500.3400 #### [facility] [address] [place], [address] Bilirubin.direct [Mass/Vol] 0.35 mg/dL High 0.00-0.3 0 [facility] Comment on above: Performed By: #### L 500.4100, L500.3400 #### [facility] [address] [place], [address] Globulin (S) [Mass/Vol] 2.3 g/dL Normal 2.2-4.2 [facility] Comment on above: Performed By: #### L 500.4100, L500.3400 #### [facility] [address] [place], [place], [id number] T PROT 6.4 g/dL Normal 5.9-8.4 [facility] Comment on above: Performed By: #### L 500.4100, L500.3400 #### [facility] [address] [place], [place], [address] Screening total cholesterol/ high density lipoprotein (HDL) cholesterol ratioOrdered By: Shai Rodriguez on 05-12-2025 Cholesterol.total/Cholestero l in HDL [Mass ratio] 2.86 {ratio} [facility] Serum globulin measurementOr dered By: Shai Rodriguez on 05-12-2025 Globulin (S) [Mass/Vol] 2.3 g/dL 2.2-4.2 [facility] Serum or plasma alanine zheng otransferase (ALT) measurementOrdered By: Shai Rodriguez on 05-12-2025 ALT [Catalytic activity/Vol] 15 U/L <47 [facility] Serum or plasma albumin rakan urement (mass/volume)Ordered By: Shai Rodriguez on 05-12-2025 Albumin [Mass/Vol] 4.1 g/dL 3.4-4.8 [facility] Serum or plasma alkaline isidra sphatase measurementOrdered By: Shai Rodriguez on 05-12-2025 ALP [Catalytic activity/Vol] 51 U/L 40-129 [facility] Serum or plasma cholesterol in HDL measurement (mass/volume)Ordered By: Shai Rodriguez on 05-12-2025 Cholesterol in HDL [Mass/Vol] 39 mg/dL Low >40 [facility] Comment on above: National Cholesterol Education Program (NCEP) guidelines:<40 mg/dL: Low HDL-cholesterol (major risk factor for CHD)>= 60 mg/dL: High HDL-cholesterol (negative risk factor for CHD)HDL-cholesterol is affected by a number of factors, e.g. smoking, exercise, hormones, sex and age. Serum or plasma cholesterol measurement (mass/volume)Ordered By: Shai Rodriguez on 05-12-2025 Cholesterol [Mass/Vol] 110 mg/dL <201 [facility] Comment on above: Cholesterol level, D esirable <200 mg/dLBorderline high cholesterol 200-239 mg/dLHigh cholesterol >=240 mg/dLRecommendations of the NCEP Adult Treatment Panel for the following risk-cutoff thresholds for the [place] population. Total proteinOrdered By: Alan adela Rodriguez on 05-12-2025 Protein [Mass/Vol] 6.4 g/dL 5.9-8.4 [facility] Triglycerides measurementOrd ered By: Shai Jennifer on 05-12-2025 Triglyceride [Mass/Vol] 105 mg/dL <199 [facility] Comment on above: The drugs N-Acetylcy steine and Metamizole may falsely depress this assay. Normal range: <150 mg/dLBorderline High: 150-199 mg/dLHigh: 200-499 mg/dLVery High: >500 mg/dL 25(OH)D3 [facility] 2024 25-hydroxyvitamin D3 [Mass/Vol] 36.8 ng/mL Normal 31.0-80.0 [facility] Comment on above: Order Comment: Speci men Type: BLOOD SPECIMENOrdering Facility: [facility] Address: [address] [place] [address] Result Comment: Clas sification of 25 [place] Vitamin D status: Deficiency/Insufficiency: < or = 30 ng/ml. Sufficiency/Optimal Levels: 31-80 ng/mL Toxicity: > 100 ng/mL. Test performed by chemiluminescent immunoassay. Performed By: #### 1 989-3 ####[facility] [id number] [place] [address] [place] 25-hydroxyvitamin D3 [Mass/V ol]on 04-10-2025 Interpretation and review of laboratory results Normal [facility] The reference range interval was based on an analysis of samples from healthy adults and may not pertain to children from 0-18 years old. [facility] Bacteria Ur Culton 5 Bacteria identified Cx Nom (U) CULTURE, URINE: No growth (<1,000 CFU/ml) Normal [facility] Comment on above: Performed By: #### 6 30-4 ####[facility] [id number] [place] [id number] [place] CBC W Auto Differential pane l (Bld)on 04-10-2025 Basophils (Bld) [#/Vol] 0.03 10*3/uL [facility] Basophils/100 WBC (Bld) 0.5 % C [facility] Differential cell count method Nom (Bld) Auto [facility] Eosinophils (Bld) [#/Vol] 0.19 10*3/uL [facility] Eosinophils/100 WBC (Bld) 2.9 % [facility] Erythrocyte distribution width (RBC) [Ratio] 12.6 % 11.5 - 15.0 % [facility] Hematocrit (Bld) [Volume fraction] 41.8 % 39.0 - 51.0 % [facility] Hemoglobin (Bld) [Mass/Vol] 13.7 g/dL 13.0 - 17.0 g/dL [facility] Immature granulocytes (Bld) [#/Vol] [facility] Immature granulocytes/100 WBC (Bld) 0.3 % [facility] Interpretation and review of laboratory results Abnormal [facility] Lymphocytes (Bld) [#/Vol] 0.94 10*3/uL Low [facility] Lymphocytes/100 WBC (Bld) 14.3 % [facility] MCH (RBC) [Entitic mass] 29.7 pg 26. 0 - 34.0 pg [facility] MCHC (RBC) [Mass/Vol] 32.8 g/dL 30.5 - 36.0 g/dL [facility] MCV (RBC) [Entitic vol] 90.5 fL 80.0 - 100.0 fL [facility] Monocytes (Bld) [#/Vol] 0.82 10*3/uL [facility] Monocytes/100 WBC (Bld) 12.5 % C [facility] Neutrophils (Bld) [#/Vol] 4.58 10*3/uL [facility] Neutrophils/100 WBC (Bld) 69.5 % [facility] Nucleated RBC (Bld) [#/Vol] [facility] Nucleated RBC/100 WBC (Bld) [Ratio] 0 % /100 WBC [facility] Platelet mean volume (Bld) [Entitic vol] 11.2 fL 9.0 - 12.7 fL [facility] Platelets (Bld) [#/Vol] 157 10*3/uL [facility] RBC (Bld) [#/Vol] 4.62 10*6/uL 4.20 - 6.00 m/uL [facility] WBC (Bld) [#/Vol] 6.58 10*3/uL [facility] Basophils (Bld) [#/Vol] 0.03 10*3/uL Normal <0.11 [facility] Comment on above: Order Comment: Speci men Type: BLOOD SPECIMENOrdering Facility: [facility] Address: [address] [place] [address] Performed By: #### 5 7021-8 ####[facility] [id number] [place] [address] [place] Basophils/100 WBC (Bld) 0.5 % Normal [facility] Comment on above: Order Comment: Speci men Type: BLOOD SPECIMENOrdering Facility: [facility] Address: [address] [place] [address] Performed By: #### 5 7021-8 ####[facility] [id number] [place] [address] [place] Differential cell count method Nom (Bld) Auto Normal [facility] Comment on above: Order Comment: Speci men Type: BLOOD SPECIMENOrdering Facility: [facility] Address: [address] [place] [address] Performed By: #### 5 7021-8 ####[facility] [id number] [place] [address] [place] Eosinophils (Bld) [#/Vol] 0.19 10*3/uL Normal <0.46 [facility] Comment on above: Order Comment: Speci men Type: BLOOD SPECIMENOrdering Facility: [facility] Address: [address] [place] [address] Performed By: #### 5 7021-8 ####[facility] [id number] [place] [address] [place] Eosinophils/100 WBC (Bld) 2.9 % Normal [facility] Comment on above: Order Comment: Speci men Type: BLOOD SPECIMENOrdering Facility: [facility] Address: [address] [place] [address] Performed By: #### 5 7021-8 ####[facility] [id number] [address], [place] [address] [place] Erythrocyte distribution width (RBC) [Ratio] 12.6 % Normal 11.5-15.0 [facility] Comment on above: Order Comment: Speci men Type: BLOOD SPECIMENOrdering Facility: [facility] Address: [address] [place] [address] Performed By: #### 5 7021-8 ####[facility] [id number] [place] [address] [place] Hematocrit (Bld) [Volume fraction] 41.8 % Normal 39.0-51.0 [facility] Comment on above: Order Comment: Speci men Type: BLOOD SPECIMENOrdering Facility: [facility] Address: [address] [place] [address] Performed By: #### 5 7021-8 ####[facility] [id number] [place] [address] [place] Hemoglobin (Bld) [Mass/Vol] 13.7 g/dL Normal 13.0-17. 0 [facility] Comment on above: Order Comment: Speci men Type: BLOOD SPECIMENOrdering Facility: [facility] Address: [address] [place] [address] Performed By: #### 5 7021-8 ####[facility] [id number] [place] [address] [place] Immature granulocytes (Bld) [#/Vol] 10*3/uL Normal <0.10 [facility] Comment on above: Order Comment: Speci men Type: BLOOD SPECIMENOrdering Facility: [facility] Address: [address] [place] [address] Performed By: #### 5 7021-8 ####[facility] [id number] [address] [place] Immature granulocytes/100 WBC (Bld) 0.3 % Normal [facility] Comment on above: Order Comment: Speci men Type: BLOOD SPECIMENOrdering Facility: [facility] Address: [address] [place] [address] Performed By: #### 5 7021-8 ####[facility] [id number] [place] [address] [place] Lymphocytes (Bld) [#/Vol] 0.94 10*3/uL Low 1.00-4.0 0 [facility] Comment on above: Order Comment: Speci men Type: BLOOD SPECIMENOrdering Facility: [facility] Address: [address] [place] [address] Performed By: #### 5 7021-8 ####[facility] [id number] [place] [address] [place] Lymphocytes/100 WBC (Bld) 14.3 % Normal [facility] Comment on above: Order Comment: Speci men Type: BLOOD SPECIMENOrdering Facility: [facility] Address: [address] [place] [address] Performed By: #### 5 7021-8 ####[facility] [id number] [place] [id number] [place] MCH (RBC) [Entitic mass] 29.7 pg Normal 26.0-34.0 [facility] Comment on above: Order Comment: Speci men Type: BLOOD SPECIMENOrdering Facility: [facility] Address: [address] [place] [address] Performed By: #### 5 7021-8 ####[facility] [id number] [place] [address] [place] MCHC (RBC) [Mass/Vol] 32.8 g/dL Normal 30.5-36.0 [facility] Comment on above: Order Comment: Speci men Type: BLOOD SPECIMENOrdering Facility: [facility] Address: [address] [place] [address] Performed By: #### 5 7021-8 ####[facility] [id number] [place] [address] [place] MCV (RBC) [Entitic vol] 90.5 fL Normal 80.0-100.0 [facility] Comment on above: Order Comment: Speci men Type: BLOOD SPECIMENOrdering Facility: [facility] Address: [address] [place] [address] Performed By: #### 5 7021-8 ####[facility] [id number] [place] [address] [place] Monocytes (Bld) [#/Vol] 0.82 10*3/uL Normal <0.87 [facility] Comment on above: Order Comment: Speci men Type: BLOOD SPECIMENOrdering Facility: [facility] Address: [address] [place] [address] Performed By: #### 5 7021-8 ####[facility] [id number] [place] [address] [place] Monocytes/100 WBC (Bld) 12.5 % Normal [facility] Comment on above: Order Comment: Speci men Type: BLOOD SPECIMENOrdering Facility: [facility] Address: [address] [place] [address] Performed By: #### 5 7021-8 ####[facility] [id number] [place] [address] [place] Neutrophils (Bld) [#/Vol] 4.58 10*3/uL Normal 1.45-7.5 0 [facility] Comment on above: Order Comment: Speci men Type: BLOOD SPECIMENOrdering Facility: [facility] Address: [address] [place] [address] Performed By: #### 5 7021-8 ####[facility]CL[facility] [id number] [place] [address] [place] Neutrophils/100 WBC (Bld) 69.5 % Normal [facility] Comment on above: Order Comment: Speci men Type: BLOOD SPECIMENOrdering Facility: [facility] Address: [address] [place] [address] Performed By: #### 5 7021-8 ####[facility] [id number] [place] [address] [place] Nucleated RBC (Bld) [#/Vol] 10*3/uL Normal <0.01 [facility] Comment on above: Order Comment: Speci men Type: BLOOD SPECIMENOrdering Facility: [facility] Address: [address] [place] [address] Performed By: #### 5 7021-8 ####[facility] [id number] [place] [address] [place] Nucleated RBC/100 WBC (Bld) [Ratio] 0.0 /100 WBC Normal [facility] Comment on above: Order Comment: Speci men Type: BLOOD SPECIMENOrdering Facility: [facility] Address: [address] [place] [address] Performed By: #### 5 7021-8 ####[facility] [id number] [place] [address] [place] Platelet mean volume (Bld) [Entitic vol] 11.2 fL Normal 9.0-12.7 [facility] Comment on above: Order Comment: Speci men Type: BLOOD SPECIMENOrdering Facility: [facility] Address: [address] [place] [address] Performed By: #### 5 7021-8 ####[facility] [id number] [place] [address] [place] Platelets (Bld) [#/Vol] 157 10*3/uL Normal 150-400 [facility] Comment on above: Order Comment: Speci men Type: BLOOD SPECIMENOrdering Facility: [facility] Address: [address] [place] [address] Performed By: #### 5 7021-8 ####[facility] [id number] [place] [address] [place] RBC (Bld) [#/Vol] 4.62 10*6/uL Normal 4.20-6.[address] [facility] Comment on above: Order Comment: Speci men Type: BLOOD SPECIMENOrdering Facility: [facility] Address: [address] [place] [address] Performed By: #### 5 7021-8 ####[facility] [id number] [place] [address] [place] WBC (Bld) [#/Vol] 6.58 10*3/uL Normal 3.70-11.[address] [facility] Comment on above: Order Comment: Speci men Type: BLOOD SPECIMENOrdering Facility: [facility] Address: [address] [place] [address] Performed By: #### 5 7021-8 ####[facility] [id number] [place] [id number] [place] CNOVon 04-10-2025 CNOV Office Visit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 W/COLLJ SPEC WHEN PFRMD 03/27/2020 Colonoscopy HEART SURGERY HX PAST SURGICAL HISTORY OF 07/31/2004 CABG x 6 [facility] PAST SURGICAL HISTORY OF 04/03/1998, Jah , Stent placements single,single,four PAST SURGICAL HISTORY OF 09/20/12 right achilles tendon surgery x 2 PAST SURGICAL HISTORY OF 12/01/12 left pinky finger SIGMOIDOSCOPY FLX DX W/COLLJ SPEC BR/WA IF PFRMD Sigmoidoscopy [facility] Family History FAMILY HISTORY Problem Relation Age of Onset Stroke Mother suspected Asthma Father Heart Attack Brother Cancer Brother Patient Allergies ALLERGIES Allergen Reactions Cats Cough, Anaphylaxis Contrast Dye Itching Dogs Cough Pollen Cough Current Medications Current Outpatient Medications on File Prior to Visit Medication Sig CPAP/BIPAP/OTHER Type .CPAPSettings into a note to see current settings/supplies/DME information. CPAP/BIPAP/OTHER Type .CPAPSettings into a note to see current settings/supplies/DME information. ramipril (ALTACE) 5 mg capsule Take 1 capsule by mouth once daily. carvedilol (COREG) 6.25 mg tablet Take 1 tablet by mouth twice daily with meals. nitroglycerin sublingual (NITROQUICK) 0.4 mg SL tablet Dissolve 1 tablet under the tongue every 5 minutes as needed for chest pain. rosuvastatin (CRESTOR) 20 mg tablet Take 1 tablet by mouth once daily. vit A/vit C/vit E/zinc/copper (OCUVITE PRESERVISION ORAL) Take 1 tablet by mouth twice daily. fluticasone (FLONASE) 50 mcg/actuation nasal spray Use 2 Sprays in each nostril once daily. Rinse mouth after use. multivitamin tablet Take 1 tablet by mouth once daily. COMPOUNDED PRESCRIPTION CPAP mask of patient choice and supplies as needed. Dx 780.57 aspirin(ECOTRIN LOW STRENGTH 81 MG TAB) Take one(1) tablet daily. No current facility-administered medications on file prior to visit. Social History Social History Tobacco Use Smoking status: Never Smokeless tobacco: Never Vaping Use Vaping status: Never Used Substance Use Topics Alcohol use: Y (more content not included)... Normal [facility] CT BRAIN WO IVCONon 02-29-20 CT BRAIN WO IVCON * * *Final Report* * * DATE OF EXAM: Feb 28 2025 4:02PM [facility] 0504 - CT BRAIN WO IVCON / PROCEDURE REASON: Injury of head, initial encounter * * * * Physician Interpretation * * * * EXAMINATION: CT BRAIN WO IVCON CLINICAL HISTORY: Recent fall pain TECHNIQUE: Serial axial images without IV contrast were obtained from the vertex to the foramen magnum. MQ: [id number]_[id number] CT Radiation dose: Integrated Dose-Length Product (DLP) for this visit = 707.24 mGy*cm CT Dose Reduction Employed: No dose reduction techniques were required COMPARISON: None. RESULT: Localizer images: Post-operative change: None. Acute change: No evidence of an acute infarct or other acute parenchymal process. Hemorrhage: No evidence of acute intracranial hemorrhage. ECASS hemorrhagic transformation score: Not Applicable Mass Lesion / Mass Effect: There is no evidence of an intracranial mass or extraaxial fluid collection. No significant mass effect. Chronic change: Chronic transcortical infarct right frontal lobe Parenchyma: Mild degree of cerebral and cerebellar atrophy Ventricles: The ventricles are within normal limits of size and configuration for age and central atrophy. Paranasal sinuses and skull base: The visualized paranasal sinuses are grossly clear. The skull base and imaged soft tissues are unremarkable. IMPRESSION: No CT evidence of acute intracranial abnormality/hemorrhage Chronic transcortical infarct right frontal lobe Manager Of Investigations: [facility] Transcribe Date/Time: Feb 28 2025 4:03P Dictated by : PARI JIMENEZ MD This examination was interpreted and the report reviewed and electronically signed by: PARI JIMENEZ MD on Feb 28 2025 4:10PM EST [id number] Normal [facility] [id number] 02-28-2025 ECG01 Ventricular Rate : 5 6 BPM Atrial Rate : 56 BPM P-R Interval : 214 ms QRS Duration : 138 ms Q-T Interval : 426 ms QTC Calculation(Bazett) : 411 ms Calculated P [place] : 1 degrees Calculated R [place] : -60 degrees Calculated T [place] : 15 degrees SINUS BRADYCARDIA WITH 1ST DEGREE AV BLOCK WITH PREMATURE ATRIAL COMPLEXES COMPLETE LEFT BUNDLE BRANCH BLOCK Confirmed by MD CARBALLO QARAB ([id number]) on 03/01/2025 11:46:12 AM NAME : MARISABEL REYNOSO PID : [id number] : 1945 Gender : Male Race : ORD : Procedure Date : Feb 28 2025 11:29:13 Edit Date : Mar 01 2025 11:46:14 Diagnosis: SINUS BRADYCARDIA WITH 1ST DEGREE AV BLOCK WITH PREMATURE ATRIAL COMPLEXES COMPLETE LEFT BUNDLE BRANCH BLOCK Confirmed by MD CARBALLO QARAB ([id number]) on 03/01/2025 11:46:12 AM Test Reason : Location : 136 : [facility] Overread By : MD CARBALLO QARAB Edited By : MD CARBALLO QARAB Referred By : , Acquired by : [id number], [facility] MARISABEL REYNOSO ([id number]) 1945 M Date Time Provider Department 01/10/25 LEANDRO HAINES [facility] During your visit today, we recorded the following information about you: Renetta Garcia, THEODORE 01/10/2025 2:43 PM Signed Caridad with [facility] Medical calls to request orders for new C-pap machine supplies be faxed to [phone]. Noted print orders from 02/25/2024 that were to be faxed to [employer] or [employer]. Call placed to patient to enquire about request. He reports that he received a new face mask from them and he didn't think they needed anything further from Dr. Haines but maybe now they do. Faxed orders to [phone] as requested. Patient reports he was not able to order supplies from [employer] or [facility] as they were out of network. Renetta Garcia RN Allergies As of Date: 01/10/2025 Noted Allergy Reaction CATS 12/24/2010 3 - Cough 10 - Anaphylaxis CONTRAST DYE 06/21/2009 9 - Itching DOGS 12/24/2010 3 - Cough POLLEN 12/24/2010 3 - Cough Date Reviewed: 10/24/2024 Reviewed by: Gay Izquierdo LPN - Fully Assessed Reason for Visit: Orders [681] Prescriptions as of 01/10/2025 - CPAP/BIPAP/OTHER Type .CPAPSettings into a note to see current settings/supplies/DME information. - ramipril (ALTACE) 5 mg capsule Take 1 capsule by mouth once daily. - carvedilol (COREG) 6.25 mg tablet Take 1 tablet by mouth twice daily with meals. - nitroglycerin sublingual (NITROQUICK) 0.4 mg SL tablet Dissolve 1 tablet under the tongue every 5 minutes as needed for chest pain. - rosuvastatin (CRESTOR) 20 mg tablet Take 1 tablet by mouth once daily. - vit A/vit C/vit E/zinc/copper (OCUVITE PRESERVISION ORAL) Take 1 tablet by mouth twice daily. - fluticasone (FLONASE) 50 mcg/actuation nasal spray Use 2 Sprays in each nostril once daily. Rinse mouth after use. - multivitamin tablet Take 1 tablet by mouth once daily. - COMPOUNDED PRESCRIPTION CPAP mask of patient choice and supplies as needed. Dx 780.57 - aspirin(ECOTRIN LOW STRENGTH 81 MG TAB) Take one(1) tablet daily. 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/20/2009 Allergic rhinitis [J30.9] 02/10/2014 Rotator cuff syndrome of right shoulder [M75.10*12/08/2016 Obesity (BMI 30.0-34.9) [E66.811] Prediabetes [R73.03] Actinic keratosis [L57.0] 12/25/2021 Chronic systolic heart failure (HCC) [I50.22] 02/24/2023 Left knee pain [M25.562] 08/26/2023 Encounter Status:Closed by RENETTA GARCIA on 01/10/25 Normal [facility] Bilirubin directOrdered By: Shai Rodriguez on 12-09-2024 Bilirubin.direct [Mass/Vol] 0.34 mg/dL High 0.00-0.3 0 [facility] Bilirubin, totalOrdered By: Shai Rodriguez on 12-09-2024 Bilirubin [Mass/Vol] 0.84 mg/dL 0.00-1.30 [facility] Calculated very low density lipoprotein (VLDL) cholesterol measurementOrdered By: Shai Rodriguez on 12-09-2024 VLDL Cholesterol 21 mg/dL 5-40 [facility] LDL calc ser/plasOrdered By: North[place]ma[place] Rodriguez on 12-09-2024 LDL Cholesterol, Calculated 55 mg/dL [facility] Comment on above: Foksrggpma=967-718 m g/dL & Higher Gaem=986 mg/dL or greater Laboratory - Chemistry and C hemistry - challengeOrdered By: Shai Rodriguez on 12-09-2024 AST [Catalytic activity/Vol] 18 U/L <38 [facility] Lipid Profileon 12-09-2024 CHOL:HDL 2.77 Normal [facility] Comment on above: Performed By: #### L 505.5000, L400.0001 #### [facility] [address] [place], [place], [id number] Cholesterol [Mass/Vol] 119 mg/dL Normal <=200 [facility] Comment on above: Result Comment: Chol esterol level, Desirable <200 mg/dL Borderline high cholesterol 200-239 mg/dL High cholesterol >=240 mg/dL Recommendations of the NCEP Adult Treatment Panel for the following risk-cutoff thresholds for the [place] population. Performed By: #### L 505.5000, L400.0001 #### [facility] [address] [place], [address] Cholesterol in HDL [Mass/Vol] 43 mg/dL Normal [facility] Comment on above: Result Comment: Yarelis onal Cholesterol Education Program (NCEP) guidelines: <40 mg/dL: Low HDL-cholesterol (major risk factor for CHD) >= 60 mg/dL: High HDL-cholesterol (negative risk factor for CHD) HDL-cholesterol is affected by a number of factors, e.g. smoking, exercise, hormones, sex and age. Performed By: #### L 505.5000, L400.0001 #### [facility] [address] [facility] [address] Cholesterol in LDL [Mass/Vol] 55 mg/dL Normal [facility] Comment on above: Result Comment: Bord rvtldt=395-938 mg/dL Higher Twoh=407 mg/dL or greater Performed By: #### L 505.5000, L400.0001 #### [facility] [address] [facility] [address] Cholesterol in VLDL [Mass/Vol] 21 mg/dL Normal 5-40 [facility] Comment on above: Performed By: #### L 505.5000, L400.0001 #### [facility] [address] [facility] [address] Triglyceride [Mass/Vol] 104 mg/dL Normal [facility] Comment on above: Result Comment: The drugs N-Acetylcysteine and Metamizole may falsely depress this assay. Normal range: <150 mg/dL Borderline High: 150-199 mg/dL High: 200-499 mg/dL Very High: >500 mg/dL Performed By: #### L 505.5000, L400.0001 #### [facility] [address] [facility] [address] Liver Profileon 12-09-2024 Albumin [Mass/Vol] 4.2 g/dL Normal 3.4-4.8 [facility] Comment on above: Performed By: #### L 505.5000, L400.0001 #### [facility] [address] [place], [address] ALK PHOS 50 U/L Normal 40-129 [facility] Comment on above: Performed By: #### L 505.5000, L400.0001 #### [facility] [address] [place], [address] ALT [Catalytic activity/Vol] 14 U/L Normal <=46 [facility] Comment on above: Performed By: #### L 505.5000, L400.0001 #### [facility] [address] [place], [address] AST [Catalytic activity/Vol] 18 U/L Normal <=37 [facility] Comment on above: Performed By: #### L 505.5000, L400.0001 #### [facility] [address] [place], [address] Bilirubin [Mass/Vol] 0.84 mg/dL Normal 0.00-1.30 [facility] Comment on above: Performed By: #### L 505.5000, L400.0001 #### [facility] [address] [place], [address] Bilirubin.direct [Mass/Vol] 0.34 mg/dL High 0.00-0.3 0 [facility] Comment on above: Performed By: #### L 505.5000, L400.0001 #### [facility] [address] [place], [address] Globulin (S) [Mass/Vol] 2.3 g/dL Normal 2.2-4.2 [facility] Comment on above: Performed By: #### L 505.5000, L400.0001 #### [facility] [address] [place], [address] T PROT 6.4 g/dL Normal 5.9-8.4 [facility] Comment on above: Performed By: #### L 505.5000, L400.0001 #### [facility] [address] [place], [address] Screening total cholesterol/ high density lipoprotein (HDL) cholesterol ratioOrdered By: Shai Rodriguez on 12-09-2024 Cholesterol.total/Cholestero l in HDL [Mass ratio] 2.77 {ratio} [facility] Serum globulin measurementOr dered By: Shai Rodriguez on 12-09-2024 Globulin (S) [Mass/Vol] 2.3 g/dL 2.2-4.2 [facility] Serum or plasma alanine zheng otransferase (ALT) measurementOrdered By: Shai Rodriguez on 12-09-2024 ALT [Catalytic activity/Vol] 14 U/L <47 [facility] Serum or plasma albumin rakan urement (mass/volume)Ordered By: Shai Rodriguez on 12-09-2024 Albumin [Mass/Vol] 4.2 g/dL 3.4-4.8 [facility] Serum or plasma alkaline isidra sphatase measurementOrdered By: Shai Rodriguez on 12-09-2024 ALP [Catalytic activity/Vol] 50 U/L 40-129 [facility] Serum or plasma cholesterol in HDL measurement (mass/volume)Ordered By: Shai Rodriguez on 12-09-2024 Cholesterol in HDL [Mass/Vol] 43 mg/dL >40 [facility] Comment on above: National Cholesterol Education Program (NCEP) guidelines:<40 mg/dL: Low HDL-cholesterol (major risk factor for CHD)>= 60 mg/dL: High HDL-cholesterol (negative risk factor for CHD)HDL-cholesterol is affected by a number of factors, e.g. smoking, exercise, hormones, sex and age. Serum or plasma cholesterol measurement (mass/volume)Ordered By: Shai Rodriguez on 12-09-2024 Cholesterol [Mass/Vol] 119 mg/dL <201 [facility] Comment on above: Cholesterol level, D esirable <200 mg/dLBorderline high cholesterol 200-239 mg/dLHigh cholesterol >=240 mg/dLRecommendations of the NCEP Adult Treatment Panel for the following risk-cutoff thresholds for the [place] population. Total proteinOrdered By: Alan Rodriguez on 12-09-2024 Protein [Mass/Vol] 6.4 g/dL 5.9-8.4 [facility] Triglycerides measurementOrd ered By: Shai Rodriguez on 12-09-2024 Triglyceride [Mass/Vol] 104 mg/dL <199 [facility] Comment on above: The drugs N-Acetylcy steine and Metamizole may falsely depress this assay. Normal range: <150 mg/dLBorderline High: 150-199 mg/dLHigh: 200-499 mg/dLVery High: >500 mg/dL CNOVon 10-24-2024 CNOV Office Visit (FAMWS ) MARISABEL REYNOSO ([id number]) 1945 M Date Time Provider Department 10/24/24 12:00 PM ANITA STONE During your visit today, we recorded the following information about you: Pulse Respiration Blood pressure Weight 68/minute 16/minute 102/74 90 kg Anita Stone APRN.CNP 10/24/2024 3:39 PM Signed CC: Patient presents with: Pre-Op Exam: Cataract surgery HPI Marisabel Reynoso is a 78 year old male who presents today for pre-op evaluation. Surgical Procedure: Right cataract Date of Procedure: 11/16/2024 Surgeon: Dr. Giovanni SILVA date: none Diabetes No Hypertension requiring medication No Congestive Heart Failure Yes Current Smoker within 1 Year No COPD/asthma No HOSSEIN Yes Dialysis No Acute renal failure No Steroid use for chronic condition No Disseminated cancer No Patient's with estimated risk of 1 percent or higher may need additional cardiac testing unless METS > or = to 4 METS: Walk indoors, such as around the house (1.75 METs): YES Do light work around the house, such as dusting or washing dishes (2.70 METs): YES Take care of self; that is eating, dressing, bathing, using the toilet (2.75 METs): YES Walk a block or two on level ground (2.75 METs): YES Do moderate work around the house such as vacuuming, sweeping floors, or carrying in groceries (3.50 METs): YES Do yardwork, such as raking leaves, weeding,or pushing a power mower (4.50 METs): YES Climb a flight of stairs or walk up a hill (5.50 METs): YES Participate in moderate recreational activities, such as golf, bowling, dancing, doubles tennis, or throwing a baseball or football (6.00 METs): YES Participate in strenuous sport, such as swimming, singles tennis, football, basketball, or skiing (7.50 METs): YES Do heavy work around the house, such as scrubbing floors, lifting or moving heavy furniture (8.00 METs): YES Run a short distance (8.00 METs): YES Patient denies any chest pain or undue shortness of breath with the above physical activity. REVIEW OF SYSTEMS GENERAL: No weight loss, malaise or fevers RESPIRATORY: Negative for cough, hemoptysis, wheezing, COPD, dyspnea or shortness of breath CARDIOVASCULAR: Negative for chest pain, leg swelling, hypertension, CHF or palpitations PAST MEDICAL HISTORY Diagnosis Date Actinic keratosis CAD (coronary artery disease) Dr. Rodriguez CHF (congestive heart failure) (HCC) EF 40% 04/2022 Chronic right shoulder pain Diverticulosis of colon (without mention of hemorrhage) Myocardial infarction (HCC) 07/31/2004 TPA, resolution w/o damage. Nasal polyp left side- seeing Dr. Hanson Obesity (BMI 30.0-34.9) Obstructive sleep apnea [facility] fx [phone] Onychomycosis Other and unspecified hyperlipidemia Prediabetes Unspecified sleep apnea uses C-pap PAST SURGICAL HISTORY Procedure Laterality Date COLONOSCOPY FLX DX W/COLLJ SPEC WHEN PFRMD 11/16/09 COLONOSCOPY FLX DX W/COLLJ SPEC WHEN PFRMD 03/27/2020 Colonoscopy HEART SURGERY HX PAST SURGICAL HISTORY OF 07/31/2004 CABG x 6 [facility] PAST SURGICAL HISTORY OF 04/03/1998, Jah , Stent placements single,single,four PAST SURGICAL HISTORY OF 09/20/12 right achilles tendon surgery x 2 PAST SURGICAL HISTORY OF 12/01/12 left pinky finger SIGMOIDOSCOPY FLX DX W/COLLJ SPEC BR/WA IF PFRMD Sigmoidoscopy [facility] ALLERGIES Cats, Contrast Dye, Dogs, and Pollen MEDICATIONS CPAP/BIPAP/OTHER Type .CPAPSettings into a note to see current settings/supplies/DME information. ramipril (ALTACE) 5 mg capsule Take 1 capsule by mouth once daily. carvedilol (COREG) 6.25 mg tablet Take 1 tablet by mouth twice daily with meals. nitroglycerin sublingual (NITROQUICK) 0.4 mg SL tablet Dissolve 1 tablet under the tongue every 5 minutes as needed for chest pain. rosuvastatin (CRESTOR) 20 mg tablet Take 1 tablet by mouth once daily. vit A/vit C/vit E/zinc/copper (OCUVITE PRESERVISION ORAL) Take 1 tablet by mouth twice daily. fluticasone (FLONASE) 50 mcg/actuation nasal spray Use 2 Sprays in each nostril once daily. Rinse mouth after use. multivitamin tablet Take 1 tablet by mouth once daily. COMPOUNDED PRESCRIPTION CPAP mask of patient choice and supplies as needed. Dx 780.57 aspirin(ECOTRIN LOW STRENGTH 81 MG TAB) Take one(1) tablet daily. FAMILY HISTORY Problem Relation Age of Onset Stroke Mother suspected Asthma Father Heart Attack Brother Cancer Brother Social History Tobacco Use Smoking status: Never Smokeless tobacco: Never Vaping Use Vaping status: Never Used Substance Use Topics Alcohol use: Yes Alcohol/week: 1.0 standard drink of alcohol Types: 1 Cans of Beer (12oz) per week Drug use: No BP 102/74 Pulse 68 Resp 16 Wt 90 kg (198 lb 6.6 oz) SpO2 96% BMI 29.30 kg/m? Physical Exam PHYSICAL EX (more content not included)... Normal [facility] Absolute neutrophil countOrd ered By: Monica Neil on 10-08-2024 Neutrophils (Bld) [#/Vol] 4.6 10*3/uL 2.0-7.7 [facility] Albumin to globulin ratioOrd ered By: Monica Neil on 10-08-2024 Albumin/Globulin [Mass ratio] 1.1 {ratio} 0.9-2.4 [facility] Basophil percentageOrdered B y: Monica Neil on 10-08-2024 Basophils/100 WBC (Bld) 0.4 % 0-1 [facility] Bilirubin Test strip Ql (U)O rdered By: Monica Neil on 10-08-2024 Bilirubin Ql (U) Negative Negative [facility] Bilirubin, totalOrdered By: Monica Neil on 10-08-2024 Bilirubin [Mass/Vol] 0.50 mg/dL 0.20-1.00 [facility] Comment on above: For patients on eltr ombopag therapy, use of Dimension [place] TBIL is not recommended. Blood urea nitrogen (BUN)/cr eatinine ratioOrdered By: Monica Neil on 10-08-2024 Urea nitrogen/Creatinine [Mass ratio] 23.8 mg/mg High 10-20 [facility] Brain/Head without Contrasto n 10-08-2024 Brain/Head without Contrast [facility] Imaging Services [address], [place] [address] Brain/Head without Contrast MR#: [id number] Acct: [id number] Name: MARISABEL REYNOSO Rep #: [id number] : 1945 M 78 From: Leandro ayers MD PCP: Dr. Danie Haines MD Status: REG ER Study: Brain/Head without Contrast Date of Exam: 09/12 06/04 Exam# [id number] Ordering Dr: Monica Neil DO [id number] EXAMINATION : Head CT w/out contrast HISTORY : confusion, fall COMPARISON : None. TECHNIQUE : Multiple contiguous axial images were obtained from the skull base to the vertex without intravenous contrast. A radiation dose optimization technique was used for this scan. FINDINGS : There is no evidence for acute intracranial hemorrhage, mass effect, or midline shift. There is no extra-axial fluid collection. There are periventricular white matter changes consistent with chronic microvascular ischemic disease. There is sulcal widening and ventricular enlargement consistent with cerebral atrophy. There is normal mcintyre-white differentiation, without CT evidence of acute ischemia or infarct. Left frontal encephalomalacia. The skull base and calvarium are unremarkable. The orbits are unremarkable. The paranasal sinuses are clear. The mastoid air cells are well-aerated. The soft tissues are unremarkable. CT/Brain/Head without Contrast IMPRESSION: No acute intracranial abnormality. Left frontal encephalomalacia. Chronic involutional and ischemic changes of the brain. Electronically Signed: Leandro Ray MD at 19:57 EST , CC: Dr. Danie Haines MD; Dr. Monica Neil DO Manager Of Investigations: Signed Normal [facility] CBC W/Diff, Automatedon 12- Absolute Lymph 1.54 X10 3/uL Normal 0.83-4.51 [facility] Comment on above: Performed By: #### L 100.0100, L500.4050 #### [facility] [address] [place], [address] Absolute Neut 4.6 X10 3/uL Normal 2.0-7.7 [facility] Comment on above: Performed By: #### L 100.0100, L500.4050 #### [facility] [address] [place], [address] Basophils/100 WBC (Bld) 0.4 % Normal 0-1 [facility] Comment on above: Performed By: #### L 100.0100, L500.4050 #### [facility] [address] [place], [address] Eosinophils/100 WBC (Bld) 2.4 % Normal 0-5 [facility] Comment on above: Performed By: #### L 100.0100, L500.4050 #### [facility] [address] [place], [address] Erythrocyte distribution width (RBC) [Ratio] 12.5 % Normal 11.6-14.6 [facility] Comment on above: Performed By: #### L 100.0100, L500.4050 #### [facility] [address] [place], [address] Hematocrit (Bld) [Volume fraction] 42.7 % Normal 40-54 [facility] Comment on above: Performed By: #### L 100.0100, L500.4050 #### [facility] [address] [place], [address] Hemoglobin (Bld) [Mass/Vol] 14.5 g/dL Normal 13.0-16. 5 [facility] Comment on above: Performed By: #### L 100.0100, L500.4050 #### [facility] [address] [place], [address] IG% 0.300 Normal 0.0-0.9 [facility] Comment on above: Result Comment: IG% - Immature Granulocytes (promyelocytes, myelocytes and metamyelocytes) > 1% indicates that a LEFT SHIFT is Present. Performed By: #### L 100.0100, L500.4050 #### [facility] [address] [place], [address] Lymphocytes/100 WBC (Bld) 21.4 % Normal 19-41 [facility] Comment on above: Performed By: #### L 100.0100, L500.4050 #### [facility] [address] [place], [address] MCH (RBC) [Entitic mass] 30.1 pg Normal 27.0-32.0 [facility] Comment on above: Performed By: #### L 100.0100, L500.4050 #### [facility] [address] [place], [address] MCHC (RBC) [Mass/Vol] 34.0 g/dL Normal 32-36 [facility] Comment on above: Performed By: #### L 100.0100, L500.4050 #### [facility] [address] [place], [address] MCV (RBC) [Entitic vol] 88.8 fL Normal 80-94 [facility] Comment on above: Performed By: #### L 100.0100, L500.4050 #### [facility] [address] [place], [address] Monocytes/100 WBC (Bld) 12.1 % High 0-10 [facility] Comment on above: Performed By: #### L 100.0100, L500.4050 #### [facility] [address] [place], [address] Neutrophils/100 WBC (Bld) 63.4 % Normal 47-70 [facility] Comment on above: Performed By: #### L 100.0100, L500.4050 #### [facility] [address] [place], [address] Nucleated RBC (Bld) [#/Vol] 0 10*3/uL Normal 0-5 [facility] Comment on above: Performed By: #### L 100.0100, L500.4050 #### [facility] [address] [place], [address] Platelet mean volume (Bld) [Entitic vol] 10.3 fL Normal 6.2-12.0 [facility] Comment on above: Performed By: #### L 100.0100, L500.4050 #### [facility] [address] [place], [address] Platelets (Bld) [#/Vol] 165 10*3/uL Normal 150-450 [facility] Comment on above: Performed By: #### L 100.0100, L500.4050 #### [facility] [address] [place], [address] RBC (Bld) [#/Vol] 4.81 10*6/uL Normal 4.6-6.2 [facility] Comment on above: Performed By: #### L 100.0100, L500.4050 #### [facility] [address] [place], [address] RDW SD 40.8 fl Normal 35.1-43.9 [facility] Comment on above: Performed By: #### L 100.0100, L500.4050 #### [facility] [address] [place], [address] WBC (Bld) [#/Vol] 7.2 10*3/uL Normal 4.4-11.0 [facility] Comment on above: Performed By: #### L 100.0100, L500.4050 #### [facility] [address] [place], [address] Carbon dioxide measurementOr dered By: Monica Neil on 10-08-2024 CO2 [Moles/Vol] 30.0 mmol/L 21.0-32.0 [facility] Chloride measurementOrdered By: Monica Neil on 10-08-2024 Chloride [Moles/Vol] 105 mmol/L 98-107 [facility] Comprehensive Metabolic Prof ilon 10-08-2024 Albumin [Mass/Vol] 3.3 g/dL Normal 3.2-5.0 [facility] Comment on above: Performed By: #### L 100.0100, L500.4050 #### [facility] [address] [place], [address] Albumin/Globulin [Mass ratio] 1.1 {ratio} Normal 0.9-2.4 [facility] Comment on above: Performed By: #### L 100.0100, L500.4050 #### [facility] [address] [place], [address] ALK P 59 U/L Normal 45-117 [facility] Comment on above: Performed By: #### L 100.0100, L500.4050 #### [facility] [address] [place], [address] ALT [Catalytic activity/Vol] 25 U/L Normal 16-61 [facility] Comment on above: Performed By: #### L 100.0100, L500.4050 #### [facility] [address] [place], [address] AST [Catalytic activity/Vol] 13 U/L Low 15-37 [facility] Comment on above: Performed By: #### L 100.0100, L500.4050 #### [facility] [address] [place], [address] Bilirubin [Mass/Vol] 0.50 mg/dL Normal 0.20-1.00 [facility] Comment on above: Result Comment: For patients on eltrombopag therapy, use of Dimension [place] TBIL is not recommended. Performed By: #### L 100.0100, L500.4050 #### [facility] [address] [place], [address] BUN/CRE 23.8 RATIO High 10-20 [facility] Comment on above: Performed By: #### L 100.0100, L500.4050 #### [facility] [address] [place], [address] CA,Total 9.4 mg/dL Normal 8.5-10.1 [facility] Comment on above: Performed By: #### L 100.0100, L500.4050 #### [facility] [address] [place], [address] Chloride [Moles/Vol] 105 mmol/L Normal 98-107 [facility] Comment on above: Performed By: #### L 100.0100, L500.4050 #### [facility] [address] [place], [address] CO2 [Moles/Vol] 30.0 mmol/L Normal 21.0-32.0 [facility] Comment on above: Performed By: #### L 100.0100, L500.4050 #### [facility] [address] [place], [address] Creatinine [Mass/Vol] 0.97 mg/dL Normal 0.70-1.30 [facility] Comment on above: Result Comment: The validity of the calculated GFR GFRAA in patients over 70 years has not been determined. Clinical correlation is essential. Performed By: #### L 100.0100, L500.4050 #### [facility] [address] [place], [address] ECRCL 73.72 ml/min Normal [facility] Comment on above: Performed By: #### L 100.0100, L500.4050 #### [facility] [address] [place], [address] EST GFR - AA 97 mL/min Normal >60 [facility] Comment on above: Result Comment: Afri can [place] GFR Calc Performed By: #### L 100.0100, L500.4050 #### [facility] [address] [place], [address] GAP 4 Low 5-15 [facility] Comment on above: Performed By: #### L 100.0100, L500.4050 #### [facility] [address] [place], [address] GFR/1.73 sq M.predicted among non-blacks MDRD (S/P/Bld) [Vol rate/Area] 80 mL/min/{1.73_m2} Normal >60 [facility] Comment on above: Result Comment: Non- GFR Calc Performed By: #### L 100.0100, L500.4050 #### [facility] [address] [place], [address] Globulin (S) [Mass/Vol] 3.0 g/dL Normal 2.2-4.2 [facility] Comment on above: Performed By: #### L 100.0100, L500.4050 #### [facility] [address], [address] Glucose [Mass/Vol] 114 mg/dL High 74-106 [facility] Comment on above: Result Comment: Fast ing Glucose result from 100 to 125 mg/dL suggests IMPAIRED HOMEOSTASIS per A.D.A. criteria. Performed By: #### L 100.0100, L500.4050 #### [facility] [address] [place], [address] Potassium [Moles/Vol] 4.3 mmol/L Normal 3.5-5.1 [facility] Comment on above: Performed By: #### L 100.0100, L500.4050 #### [facility] [address] [place], [address] Sodium [Moles/Vol] 139 mmol/L Normal 136-145 [facility] Comment on above: Performed By: #### L 100.0100, L500.4050 #### [facility] [address] [place], [address] T PROT 6.3 g/dL Low 6.4-8.2 [facility] Comment on above: Performed By: #### L 100.0100, L500.4050 #### [facility] [address] [place], [address] Urea nitrogen [Mass/Vol] 23 mg/dL High 7-18 [facility] Comment on above: Performed By: #### L 100.0100, L500.4050 #### [facility] [address] [place], [address] Emergency Department Summary on 10-08-2024 Emergency Department Summary [facility] Medical Records Department [address] [place] [address] Emergency Department Summary 10/08/24 MR#: [id number] Acct: [id number] Name: MARISABEL REYNOSO Rep #: [id number] : 1945 78 From: Monica Neil DO PCP: Dr. Danie Haines MD Status:DEP ER Location: ED HPI History of Present Illness Chief Complaint: Confusion Informant: patient and spouse/S.O. Narrative Narrative: Patient is a 78-year-old male with history of nonischemic cardiomyopathy, coronary artery disease status post CABG 2003, hypertension hyperlipidemia presenting with for concern of increased confusion. Patient has been having issues with right-sided neck stiffness and pain rating to his back for the past 2 weeks. He initially was seen at his primary care office on September 26 where he was given a Medrol Dosepak and started on Flexeril 5 mg. He states that he started to improve however over the weekend for [place] he tripped over a dog gate laying on his right side. The pain returned. They are going out of town tomorrow to [place] for a and they wanted to make sure he is fine to travel. They had increased him to 10 mg of Flexeril which he started yesterday. Today patient seems more confused. states he always seems like he is drunk but he has not been drinking. States his walking is "slouching", his speech is more convoluted and he is messing up things. He seems foggy. She does note that his balance has been off for a little bit of time. She thinks it might be the medication with increase in strength and wanted to make sure expressions are plan ongoing on time. He denies any fever chills, chest pain, shortness of breath, nausea or vomiting or urinary symptoms. No report of any URI symptoms or night sweats. No sick contacts reported. When he fell this last weekend he did not hit his head but did land on his right side. He is not on any blood thinners. Does report some chronic constipation but no acute change in that. [facility] Medical History Non-ischemic cardiomyopathy Essential (primary) hypertension Atherosclerosis of coronary artery of zuni heart without angina pectoris Hyperlipidemia Old myocardial infarction Home Medications ???Medication ???Instructions ???Recorded ???Last Taken ???Type aspirin 81 mg tablet,delayed 81 mg PO QDAY 12/25/17 Unknown History release (Yarely Low Dose Aspirin) multivitamin 1 tab PO QDAY 12/25/17 Unknown History vit C 250 mg-vit E 90 mg-zinc 40 1 tab PO BID 03/01/21 Unknown History mg-copper 1 [id number] capsule (PreserVision AREDS-2) fluticasone propionate 50 50 mcg intranasal DAILY 04/30/23 Unknown History mcg/actuation nasal spray,suspension (Allergy Relief (fluticasone)) nitroglycerin 0.4 mg sublingual 0.4 mg sublingual Q5-15M PRN chest 03/17/24 Unknown Rx tablet pain #25 tabs carvedilol 12.5 mg tablet 12.5 mg PO BID #180 TABLETS 03/21/24 Unknown Rx ramipril 5 mg capsule 5 mg PO DAILY #90 caps 03/21/24 Unknown Rx rosuvastatin 20 mg tablet 20 mg PO DAILY #90 TABLETS 10/06/24 Unknown Rx cyclobenzaprine 10 mg tablet 10 mg PO TID PRN PRN muscle spasm 10/08/24 Unknown History Allergy/AdvReac Type Severity Reaction Status Date / Time animal dander Allergy Unknown runny Verified 10/08/24 15:38 nose, itchy house dust Allergy Unknown unknown Verified 10/08/24 15:38 pollen extracts Allergy Unknown unknown Verified 10/08/24 15:38 iodine Allergy hives Verified 10/08/24 15:38 Family History Brother Myocardial infarction age 60 from [place] Brother Myocardial infarction [place] age 40 Mother Myocardial infarction age 82 [place] Surgical History H/O Achilles tendon repair H/O coronary artery bypass surgery (07/31/04) History of coronary artery stent placement (1997) Social History Smoking Status: Never smoker alcohol intake: never substance use type: does not use caffeine: Yes Type: carbonated beverages ROS ROS ED Constitutional Constitutional ED: Denies chills or fever(s) Eyes Eyes: Reports other Details: Due to have cataract surgery ENT ENT ED: Denies ear pain, rhinorrhea or sore throat Cardiovascular Cardiovascular: Denies chest pain or palpitations Respiratory/Chest Respiratory/Chest: Denies cough Gastrointestinal Gastrointestinal: Reports constipation; Denies abdominal pain, diarrhea, nausea or vomiting Genitourinary Genitourinary ED: Denies dysuria, hematuria or urinary frequency Musculoskeletal Musculoskeletal: Reports neck pain; Denies arthralgias or myalgias Integumentary Denies rash Neurologic Neuro (more content not included)... Normal [facility] Eosinophil percentageOrdered By: Monica Neil on 10-08-2024 Eosinophils/100 WBC (Bld) 2.4 % 0-5 [facility] Epithelial cells.squamous LM Ql (Urine sed)Ordered By: Monica Neil on 10-08-2024 Epithelial cells.squamous LM.HPF (Urine sed) [#/Area] 0 /[HPF] 0-5 [facility] Erythrocyte distribution wid th ratioOrdered By: Monica Neil on 10-08-2024 Erythrocyte distribution width (RBC) [Ratio] 12.5 % 11.6-14.6 [facility] Erythrocyte distribution wid th standard deviationOrdered By: Monica Neil on 10-08-2024 Erythrocyte distribution width (RBC) [Entitic vol] 40.8 fL 35.1-43.9 [facility] Estimated glomerular filtrat ion rate (GFR) AmericanOrdered By: Monica Neil on 10-08-2024 Estimated GFR (MDRD) Amer 97 mL/min >60 [facility] Comment on above: GFR Calc Estimation of creatinine kenrick aranceOrdered By: Monica Neil on 10-08-2024 Estimated Creatinine Clearance Calc 73.72 ml/min [facility] Glomerular filtration rate ( GFR) estimationOrdered By: Monica Neil on 10-08-2024 Estimated GFR (MDRD) Non-Af Amer 80 mL/min >60 [facility] Comment on above: Non- GFR Calc Glucose Ql (U)Ordered By: Dm Neil on 10-08-2024 Urine Glucose (UA) Normal mg/dl Normal [facility] Glucose measurementOrdered B y: Mnoica Neil on 10-08-2024 Glucose [Mass/Vol] 114 mg/dL High 74-106 [facility] Comment on above: Fasting Glucose resu lt from 100 to 125 mg/dL suggests IMPAIRED HOMEOSTASIS per A.D.A. criteria. Hematocrit Auto (Bld) [Volum e fraction]Ordered By: Monica Neil on 10-08-2024 Hematocrit (Bld) [Volume fraction] 42.7 % 40-54 [facility] Hemoglobin measurementOrdere d By: Monica Neil on 10-08-2024 Hemoglobin (Bld) [Mass/Vol] 14.5 g/dL 13.0-16. 5 [facility] Immature granulocytes/100 WB C Auto (Bld)Ordered By: Monica Neil on 10-08-2024 Immature granulocytes/100 WBC (Bld) 0.300 % 0.0-0.9 [facility] Comment on above: IG% - Immature Granu locytes (promyelocytes, myelocytes and metamyelocytes) > 1% indicates that a LEFT SHIFT is Present. Ketones Test strip Ql (U)Ord ered By: Monica Neil on 10-08-2024 Ketones Ql (U) Negative Negative [facility] - Chemistry and C hemistry - challengeOrdered By: Monica Neil on 10-08-2024 AST [Catalytic activity/Vol] 13 U/L Low 15-37 [facility] Lymphocytes Auto (Unsp spec) [#/Vol]Ordered By: Monica Neil on 10-08-2024 Lymphocytes (Bld) [#/Vol] 1.54 10*3/uL 0.83-4.5 1 [facility] Lymphocytes/100 WBC Auto (Un sp spec)Ordered By: Monica Neil on 10-08-2024 Lymphocytes/100 WBC (Bld) 21.4 % 19-41 [facility] MCV (mean corpuscular volume ) determinationOrdered By: Monica Neil on 10-08-2024 MCV (RBC) [Entitic vol] 88.8 fL 80-94 [facility] Mean corpuscular hemoglobin (MCH) determinationOrdered By: Monica Neil on 10-08-2024 MCH (RBC) [Entitic mass] 30.1 pg 27.0-32.0 [facility] Mean corpuscular hemoglobin concentration (MCHC) determinationOrdered By: Monica Neil on 10-08-2024 MCHC (RBC) [Mass/Vol] 34.0 g/dL 32-36 [facility] Mean platelet volume determi nationOrdered By: Monica Neil on 10-08-2024 Platelet mean volume (Bld) [Entitic vol] 10.3 fL 6.2-12.0 [facility] Methadone, urineOrdered By: Monica Neil on 10-08-2024 Urine Methadone Screen Negative < 300 ng/mL [facility] Microscopic analysis of urin e for red blood cells (RBC)Ordered By: Monica Neil on 10-08-2024 Urine RBC 0-5 SEEN /hpf 0-5 [facility] Monocyte percentageOrdered B y: Monica Neil on 10-08-2024 Monocytes/100 WBC (Bld) 12.1 % High 0-10 [facility] Mucus LM Ql (Urine sed)Order ed By: Monica Neil on 10-08-2024 Mucus Ql (Urine sed) 1+ /hpf [facility] Neutrophil percentageOrdered By: Monica Neil on 10-08-2024 Neutrophils/100 WBC (Bld) 63.4 % 47-70 [facility] Nitrite Test strip Ql (U)Ord ered By: Monica Neil on 10-08-2024 Nitrite Ql (U) Negative Negative [facility] No Panel InformationOrdered By: Monica Neil on 10-08-2024 Urine Drug Screen Comment [facility] Comment on above: CONFIRMATORY TESTING FOR ALL POSITIVE URINE DRUG SCREENRESULTS WILL ONLY BE SENT OUT UPON PHYSICIAN ORDER. VISTA Urine Drug Screen methods provide only preliminaryanalytical test results. A more specific alternate chemicalmethod must be used in order to obtain a confirmedanalytical result. Gas chromatography/mass spectrometery(GC/MS) is the preferred confirmatory method. Clinicalconsideration and professional judgement should be appliedto any drug of abuse test result, particularly whenpreliminary positive results are used. URINE TCA TESTING MUST BE ORDERED SEPARATELY. USE TESTMNEMONIC: [facility] Nucleated red blood cell per centageOrdered By: Monica Neil on 10-08-2024 Nucleated RBC/100 WBC (Bld) [Ratio] 0 % 0-5 [facility] Platelet countOrdered By: Dm Neil on 10-08-2024 Platelets (Bld) [#/Vol] 165 10*3/uL 150-450 [facility] Potassium measurementOrdered By: Monica Neil on 10-08-2024 Potassium [Moles/Vol] 4.3 mmol/L 3.5-5.1 [facility] Protein Test strip Ql (U)Ord ered By: Monica Neil on 10-08-2024 Protein Ql (U) Negative Negative [facility] Quantitative urine opiates m easurementOrdered By: Monica Neil on 10-08-2024 Opiates Ql (U) Negative < 300 ng/mL [facility] RBC Auto (Bld) [#/Vol]Ordere d By: Monica Neil on 10-08-2024 RBC (Bld) [#/Vol] 4.81 10*6/uL 4.6-6.2 [facility] Serum anion gap measurementO rdered By: Monica Neil on 10-08-2024 Anion gap [Moles/Vol] 4 mmol/L Low 5-15 [facility] Serum globulin measurementOr dered By: Monica Neil on 10-08-2024 Globulin (S) [Mass/Vol] 3.0 g/dL 2.2-4.2 [facility] Serum or plasma alanine zheng otransferase (ALT) measurementOrdered By: Monica Neil on 10-08-2024 ALT [Catalytic activity/Vol] 25 U/L 16-61 [facility] Serum or plasma albumin rakan urement (mass/volume)Ordered By: Monica Neil on 10-08-2024 Albumin [Mass/Vol] 3.3 g/dL 3.2-5.0 [facility] Serum or plasma alkaline isidra sphatase measurementOrdered By: Monica Neil on 10-08-2024 ALP [Catalytic activity/Vol] 59 U/L 45-117 [facility] Serum or plasma calcium rakan urement (mass/volume)Ordered By: Monica Neil on 10-08-2024 Calcium [Mass/Vol] 9.4 mg/dL 8.5-10.1 [facility] Serum or plasma creatinine m easurement (mass/volume)Ordered By: Monica Neil on 10-08-2024 Creatinine [Mass/Vol] 0.97 mg/dL 0.70-1.30 [facility] Comment on above: The validity of the calculated GFR & GFRAA in patients over 70 years has not been determined. Clinical correlation is essential. Serum or plasma urea nitroge n measurement (mass/volume)Ordered By: Monica Neil on 10-08-2024 Urea nitrogen [Mass/Vol] 23 mg/dL High 7-18 [facility] Sodium levelOrdered By: Hemal Neil on 10-08-2024 Sodium [Moles/Vol] 139 mmol/L 136-145 [facility] Spine Cervical without Contr ason 10-08-2024 Spine Cervical without Contras [facility] Imaging Services [facility] [place], [place] [address] Spine Cervical without Contras MR#: [id number] Acct: [id number] Name: MARISABEL REYNOSO Rep #: [id number] : 1945 M 78 From: Leandro ayers MD PCP: Dr. Danie Haines MD Status: REG ER Study: Spine Cervical without Contras Date of Exam: 12/09/23 Exam# [id number] Ordering Dr: Monica Neil [place] [id number] INDICATION: pain, fall EXAMINATION: CT CERVICAL SPINE - CT Spine Cervical W/O Contrast Injection TECHNIQUE: Helically acquired images were obtained of the cervical spine. 2D reformatted images were reviewed. A radiation dose optimization technique was used for this scan. IV Contrast dosage and agent: None. COMPARISON: None. FINDINGS: VERTEBRAE: No fracture or traumatic subluxation. No discrete lytic or blastic abnormality. Normal alignment. Normal craniocervical junction and cervicothoracic junction. DISCS and SPINAL CANAL: Moderate multilevel degenerative disease and spondylosis. No critical stenosis. NECK SOFT TISSUES: No prevertebral soft tissue swelling. There is no cervical adenopathy. LUNG APICES: Clear. CT/Spine Cervical without Contras IMPRESSION: No evidence of acute cervical spinal fracture or spondylolisthesis. Moderate multilevel degenerative disc disease and spondylosis. Electronically Signed: Leandro Ray MD at 19:59 EST , CC: Dr. Danie Haines MD; Dr. Monica Neil DO Manager Of Investigations: Signed Normal [facility] Total proteinOrdered By: Lizett Neil on 10-08-2024 Protein [Mass/Vol] 6.3 g/dL Low 6.4-8.2 [facility] Urinalysis, Completeon 10-08 Mucus Ql (Urine sed) 1+ /hpf Normal [facility] Comment on above: Order Comment: CLEAN CATCH Performed By: #### L 505.5000, L400.0001 #### [facility] [address] [place] [address] RBC 0-5 SEEN Normal 0-5 [facility] Comment on above: Order Comment: CLEAN CATCH Performed By: #### L 505.5000, L400.0001 #### [facility] [address] [place] [id number] WBC 0-5 SEEN Normal 0-5 [facility] Comment on above: Order Comment: CLEAN CATCH Performed By: #### L 505.5000, L400.0001 #### [facility] [address] [place], [address] BACTERIA 0 SEEN Normal None Seen [facility] Comment on above: Order Comment: CLEAN CATCH Performed By: #### L 505.5000, L400.0001 #### [facility] [address] [place], [address] EPI,SQUAMOUS 0 SEEN Normal 0-5 [facility] Comment on above: Order Comment: CLEAN CATCH Performed By: #### L 505.5000, L400.0001 #### [facility] [address] [place], [address] Urine Drug Screen (VISTA)on 10-08-2024 AMPHETAMINES Negative Normal <1000 ng/mL [facility] Comment on above: Performed By: #### L 505.5000, L400.0001 #### [facility] [address] [place], [address] BARBITIURATES Negative Normal < 200 ng/mL [facility] Comment on above: Performed By: #### L 505.5000, L400.0001 #### [facility] [address] [place], [address] BENZODIAZIPINE Negative Normal < 200 ng/mL [facility] Comment on above: Performed By: #### L 505.5000, L400.0001 #### [facility] [address] [place], [address] COCAINE Negative Normal < 300 ng/mL [facility] Comment on above: Performed By: #### L 505.5000, L400.0001 #### [facility] [address] [place], [address] ECSTACY Negative Normal < 500 ng/mL [facility] Comment on above: Performed By: #### L 505.5000, L400.0001 #### [facility] [address] [place], [address] METHADONE Negative Normal < 300 ng/mL [facility] Comment on above: Performed By: #### L 505.5000, L400.0001 #### [facility] [address] [place], [address] OPIATES Negative Normal < 300 ng/mL [facility] Comment on above: Performed By: #### L 505.5000, L400.0001 #### [facility] [address] [place], [place], [id number] PCP Negative Normal < 25 ng/mL [facility] Comment on above: Performed By: #### L 505.5000, L400.0001 #### [facility] [address] [place], [place], [id number] THC Negative Normal < 50 ng/mL [facility] Comment on above: Performed By: #### L 505.5000, L400.0001 #### [facility] [address] [place], [place], [id number] VISTA UDS PH 5 Normal [facility] Comment on above: Performed By: #### L 505.5000, L400.0001 #### [facility] [address] [place], [place], [id number] Urine amphetamine measuremen tOrdered By: Monica Neil on 10-08-2024 Amphetamines Ql (U) Negative <1000 ng/mL [facility] Urine barbiturates measureme ntOrdered By: Monica Neil on 10-08-2024 Urine Barbiturates Screen Negative < 200 ng/mL [facility] Urine benzodiazepine levelOr dered By: Monica Neil on 10-08-2024 Benzodiazepines Ql (U) Negative < 200 ng/mL [facility] Urine blood detectionOrdered By: Monica Neil on 10-08-2024 Urine Occult Blood Negative Negative [facility] Urine clarityOrdered By: Lizett Neil on 10-08-2024 Clarity (U) Clear Clear [facility] Urine cocaine levelOrdered B y: Monica Neil on 10-08-2024 Cocaine Ql (U) Negative < 300 ng/mL [facility] Urine color determinationOrd ered By: Monica Neil on 10-08-2024 Color (U) Yellow Yellow [facility] Urine vvtci-2-zxgpgqeasotzvo abinol (THC) measurementOrdered By: Monica Neil on 10-08-2024 Cannabinoids Screen Ql (U) Negative < 50 ng/m L [facility] Urine leukocyte esterase det ection by dipstickOrdered By: Monica Neil on 10-08-2024 Leukocyte esterase Test strip Ql (U) Negative Negative [facility] Urine methylenedioxymethamph etamine (MDMA) measurementOrdered By: Monica Neil on 10-08-2024 MDMA (Ecstasy) Screen Negative < 500 ng/mL [facility] Urine pHOrdered By: Monica melo on 10-08-2024 pH (U) 6.0 [pH] 5.0 - 8.0 [facility] Urine phencyclidine (PCP) de tectionOrdered By: Monica Neil on 10-08-2024 Phencyclidine Ql (U) Negative < 25 ng/mL [facility] Urine sediment bacteria coun t by microscopy (number/high power field)Ordered By: Monica Neil on 10-08-2024 Bacteria LM.HPF (Urine sed) [#/Area] 0 /[HPF] None Seen [facility] Urine specific gravity measu rementOrdered By: Monica Neil on 10-08-2024 Specific gravity (U) [Rel density] 1.015 1.002-1.03 0 [facility] Urobilinogen Ql (U)Ordered B y: Monica Neil on 10-08-2024 Urine Urobilinogen Normal mg/dl Normal [facility] White blood cell (WBC) count Ordered By: Monica Neil on 10-08-2024 WBC (Bld) [#/Vol] 7.2 10*3/uL 4.4-11.0 [facility] White blood cell countOrdere d By: Monica Neil on 10-08-2024 Urine WBC 0-5 SEEN /hpf 0-5 [facility] 10-07-20[facility] MARISABEL REYNOSO ([id number]) 1945 M Date Time Provider Department 10/07/24 10:40 AM CATRACHITA WATERS During your visit today, we recorded the following information about you: Pulse Respiration Blood pressure Weight 88/minute 16/minute 110/64 91.6 kg Catrachita Waters APRN.THERMITE WELDER 10/07/2024 12:09 PM Signed This is a 78 year old male who presents today with: Patient presents with: Acute Visit: neck stiffness HISTORY OF PRESENT ILLNESS: Marisabel Reynoso is a 78 year old male. Patient presents with: Acute Visit: neck stiffness Patient of Dr. Haines here in the office for neck pain. Started earlier this month. Was evaluated by PCP team on 09/26/2024. Given Medrol Dosepak and Flexeril. Steroids were helpful for pain, but seemed to come back once finishing the medication. Pain is right side of neck and trapezius. Pain is throbbing which waxes and wanes. No numbness and tingling into the hands. PAST MEDICAL HISTORY: PAST MEDICAL HISTORY Diagnosis Date Actinic keratosis CAD (coronary artery disease) Dr. Rodriguez CHF (congestive heart failure) ([facility]) EF 40% 04/2022 Chronic right shoulder pain Diverticulosis of colon (without mention of hemorrhage) Myocardial infarction ([facility]) 07/31/2004 TPA, resolution w/o damage. Nasal polyp left side- seeing Dr. Hanson Obesity (BMI 30.0-34.9) Obstructive sleep apnea [facility] fx [phone] Onychomycosis Other and unspecified hyperlipidemia Prediabetes Unspecified sleep apnea uses C-pap PAST SURGICAL HISTORY Procedure Laterality Date COLONOSCOPY FLX DX W/COLLJ SPEC WHEN PFRMD 11/16/09 COLONOSCOPY FLX DX W/COLLJ SPEC WHEN PFRMD 03/27/2020 Colonoscopy HEART SURGERY HX PAST SURGICAL HISTORY OF 07/31/2004 CABG x 6 [facility] PAST SURGICAL HISTORY OF 04/03/1998, Jah , Stent placements single,single,four PAST SURGICAL HISTORY OF 09/20/12 right achilles tendon surgery x 2 PAST SURGICAL HISTORY OF 12/01/12 left pinky finger SIGMOIDOSCOPY FLX DX W/COLLJ SPEC BR/WA IF PFRMD Sigmoidoscopy [facility] ALLERGIES Cats, Contrast Dye, Dogs, and Pollen MEDICATIONS Current Outpatient Medications Medication Sig cyclobenzaprine (FLEXERIL) 5 mg tablet Take 1 tablet by mouth three times a day as needed. Ciclopirox (LOPROX) 0.77 % gel Apply to affected area two times a day. Patient to start once he recieves CPAP/BIPAP/OTHER Type .CPAPSettings into a note to see current settings/supplies/DME information. ramipril (ALTACE) 5 mg capsule Take 1 capsule by mouth once daily. carvedilol (COREG) 6.25 mg tablet Take 1 tablet by mouth twice daily with meals. nitroglycerin sublingual (NITROQUICK) 0.4 mg SL tablet Dissolve 1 tablet under the tongue every 5 minutes as needed for chest pain. rosuvastatin (CRESTOR) 20 mg tablet Take 1 tablet by mouth once daily. vit A/vit C/vit E/zinc/copper (OCUVITE PRESERVISION ORAL) Take 1 tablet by mouth twice daily. fluticasone (FLONASE) 50 mcg/actuation nasal spray Use 2 Sprays in each nostril once daily. Rinse mouth after use. multivitamin tablet Take 1 tablet by mouth once daily. COMPOUNDED PRESCRIPTION CPAP mask of patient choice and supplies as needed. Dx 780.57 aspirin(ECOTRIN LOW STRENGTH 81 MG TAB) Take one(1) tablet daily. No current facility-administered medications for this visit. FAMILY HISTORY Problem Relation Age of Onset Stroke Mother suspected Asthma Father Heart Attack Brother Cancer Brother Social History Tobacco Use Smoking status: Never Smokeless tobacco: Never Vaping Use Vaping status: Never Used Substance Use Topics Alcohol use: Yes Alcohol/week: 1.0 standard drink of alcohol Types: 1 Cans of Beer (12oz) per week Drug use: No REVIEW OF SYSTEMS GENERAL: No weight loss, malaise or fevers/chills HEENT: Negative for frequent or significant headaches, No changes in hearing or vision. NECK: Negative for lumps, goiter, pain and significant neck swelling RESPIRATORY: Negative for cough, hemoptysis, wheezing, dyspnea or shortness of breath CARDIOVASCULAR: Negative for chest pain, leg swelling, orthopnea, or palpitations GI: No nausea, vomiting, or diarrhea/constipation. No hematochezia/melena. No heartburn or reflux symptoms. : No history of dysuria, frequency or incontinence MUSCULOSKELETAL: + Neck Pain SKIN: Negative for lesions, rash, and itching ENDOCRINE: Negative for cold or heat intolerance, polyuria, polydipsia and goiter NEURO: No history of headaches, syncope, paralysis, seizures or tremors MOOD: Negative for depression, anxiety, or suicidal ideation. EXAM: BP 110/64 Pulse 88 Resp 16 Wt 91.6 kg (201 lb 15.1 oz) SpO2 97% BMI 29.82 kg/m? PHYSICAL EXAM: General Appearance: Well appearing, alert, in no acute distress, well-hydrated, well nourished. Skin: Skin color, texture, turgor (more content not included)... Normal [facility] CNOVon 09-26-2024 CNOV Office Visit ([facility] ) MARISABEL REYNOSO ([id number]) 1945 M Date Time Provider Department 09/26/24 1:00 PM ANITA STONE During your visit today, we recorded the following information about you: Pulse Respiration Blood pressure Weight 59/minute 16/minute 118/62 90.3 kg Anita Stone APRN.THERMITE WELDER 09/26/2024 3:42 PM Signed 09/26/2024 Patient presents with: Neck Pain: X1 week; kept patient up last night. SUBJECTIVE: This is a 78 year old that is here today for Above Complaints. ONSET: one week LOCATION: right neck DURATION: intermittent CHARACTERISTICS: sharp AGGRAVATING FEATURES: turning head ALLEVIATING FEATURES: heat and topical RADIATION: shoulder and upper back Denies past injury/surgery, extremity numbness, tingling, weakness, saddle anasthesia, urinary/bowel incontinence or inability PAST MEDICAL HISTORY Diagnosis Date Actinic keratosis CAD (coronary artery disease) Dr. Rodriguez CHF (congestive heart failure) ([facility]) EF 40% 04/2022 Chronic right shoulder pain Diverticulosis of colon (without mention of hemorrhage) Myocardial infarction ([facility]) 07/31/2004 TPA, resolution w/o damage. Nasal polyp left side- seeing Dr. Hanson Obesity (BMI 30.0-34.9) Obstructive sleep apnea DME [facility] fx [phone] Onychomycosis Other and unspecified hyperlipidemia Prediabetes Unspecified sleep apnea uses C-pap ALLERGIES Cats, Contrast Dye, Dogs, and Pollen MEDICATIONS Current Outpatient Medications Medication Sig Ciclopirox (LOPROX) 0.77 % gel Apply to affected area two times a day. Patient to start once he recieves CPAP/BIPAP/OTHER Type .CPAPSettings into a note to see current settings/supplies/DME information. ramipril (ALTACE) 5 mg capsule Take 1 capsule by mouth once daily. carvedilol (COREG) 6.25 mg tablet Take 1 tablet by mouth twice daily with meals. nitroglycerin sublingual (NITROQUICK) 0.4 mg SL tablet Dissolve 1 tablet under the tongue every 5 minutes as needed for chest pain. rosuvastatin (CRESTOR) 20 mg tablet Take 1 tablet by mouth once daily. vit A/vit C/vit E/zinc/copper (OCUVITE PRESERVISION ORAL) Take 1 tablet by mouth twice daily. fluticasone (FLONASE) 50 mcg/actuation nasal spray Use 2 Sprays in each nostril once daily. Rinse mouth after use. multivitamin tablet Take 1 tablet by mouth once daily. COMPOUNDED PRESCRIPTION CPAP mask of patient choice and supplies as needed. Dx 780.57 aspirin(ECOTRIN LOW STRENGTH 81 MG TAB) Take one(1) tablet daily. No current facility-administered medications for this visit. Medications and allergies reviewed by this provider. SOCIAL HISTORY Social History Tobacco Use Smoking status: Never Smokeless tobacco: Never Vaping Use Vaping status: Never Used Substance Use Topics Alcohol use: Yes Alcohol/week: 1.0 standard drink of alcohol Types: 1 Cans of Beer (12oz) per week Drug use: No REVIEW OF SYSTEMS All other reviewed and negative other than HPI. OBJECTIVE: BP 118/62 Pulse (!) 59 Resp 16 Wt 90.3 kg (199 lb 1.2 oz) SpO2 98% BMI 29.40 kg/m? . Vital signs reviewed by this provider. APPEARANCE Well appearing, alert, in no acute distress, well-hydrated, well nourished. NECK Supple, no adenopathy. TTP right posterior neck. No obvious deformity, erythema or swelling. Some discomfort with rotation to the right and extension. Negative Spurling EXTREMITIES Extremities normal, No deformities, No skin discoloration, and No edema NEURO Reflexes symmetrical, Normal gait, No involuntary motions., and negative findings: muscle tone normal, muscle strength normal SKIN Skin color, texture, turgor normal, no suspicious rashes or lesions to exposed skin RIGHT SHOULDER: No obvious deformity, erythema, excessive warmth or swelling. FROM without pain or difficulty Depression Screening Never done Anxiety Screening Never done LDL Cholesterol due on 02/28/2025 Annual PCP Team Chronic Disease Visit due on 09/26/2025 Diabetes Screening due on 03/09/2027 DTaP,Tdap,Td Vaccine(3 - Td or Tdap) due on 02/05/2028 Influenza Vaccine Completed Advance Directive Discussion Completed RSV Vaccine Completed Hepatitis C Screening Completed Shingrix Vaccine Completed Covid-19 Vaccine Completed Pneumococcal Vaccine: 50+ Completed Colorectal Cancer Screening Discontinued ASSESSMENT/PLAN: 1. Neck pain - ICD9: 723.1, ICD10: M54.2 - likely muscular - no red flag symptoms or exam findings - red flag symptoms discussed, verbalizes understanding - may use OTC acetaminophen products as directed on packaging - CYCLOBENZAPRINE 5 MG TABLET- discussed with patient medication can cause drowsiness so should not drive or operate heavy machinery while taking, verbalizes understanding - METHYLPREDNISOLONE 4 MG TABLETS IN A DOSE PACK- disussed with patient he should not take NSAID prood (more content not included)... Normal [facility] OWENOVon 09-07-2024 CNOV Office Visit ([facility] ) MARISABEL REYNOSO ([id number]) 1945 M Date Time Provider Department 09/07/24 12:40 PM PODLOGARANITA During your visit today, we recorded the following information about you: Pulse Respiration Blood pressure Weight 71/minute 16/minute 114/64 90.4 kg ChaseAnita GEORGE 09/07/2024 1:39 PM Signed 09/07/2024 Patient presents with: F/U 6 months Chest Pain: Noticed palpitations last week 2 mornings for a few moments, and at lunch once SUBJECTIVE: This is a 78 year old that is here today for Above Complaints. CAD/CHF: follows [facility] with last visit on 05/13/2024. No medication changes at that time. Denies SOB, dyspnea, chest pain, palpitations or leg swelling Had two mornings last week and felt a couple a couple of different beats. Reports it was real quick. Thursday at lunch had a few fast beats. Denies accompanying diaphoresis, lightheadedness, dizziness, SOB, dyspnea, chest pain, back/jaw pain, nausea or vomiting HYPERLIPIDEMIA: Patient is taking medications: Yes. Patient is watching diet: Yes. Patient denies myalgias: Yes. Patient denies gi upset: Yes Prediabetes: tries to eat lower carbohydrate diet. Denies visual changes, polyuria, polydipsia. HOSSEIN: wears CPAP nightly. Feels rested when wakes up. Reports has had some falls int the last year. Thinks it may be due to his eyes. Going to get cataract surgery in the new year. Reports did do some balance training through a stepping up program. No injuries with fall. Reports he has worked on being more careful and not walking and and looking at phone. Denies any injures with falls. Continues to work on exercises for his balance. PAST MEDICAL HISTORY Diagnosis Date Actinic keratosis CAD (coronary artery disease) Dr. Rodriguez CHF (congestive heart failure) ([facility]) EF 40% 04/2022 Chronic right shoulder pain Diverticulosis of colon (without mention of hemorrhage) Myocardial infarction ([facility]) 07/31/2004 TPA, resolution w/o damage. Obesity (BMI 30.0-34.9) Obstructive sleep apnea [facility] fx [phone] Other and unspecified hyperlipidemia Prediabetes Unspecified sleep apnea uses C-pap ALLERGIES Cats, Contrast Dye, Dogs, and Pollen MEDICATIONS Current Outpatient Medications Medication Sig Ciclopirox (LOPROX) 0.77 % gel Apply to affected area two times a day. Patient to start once he recieves CPAP/BIPAP/OTHER Type .CPAPSettings into a note to see current settings/supplies/DME information. ramipril (ALTACE) 5 mg capsule Take 1 capsule by mouth once daily. carvedilol (COREG) 6.25 mg tablet Take 1 tablet by mouth twice daily with meals. nitroglycerin sublingual (NITROQUICK) 0.4 mg SL tablet Dissolve 1 tablet under the tongue every 5 minutes as needed for chest pain. rosuvastatin (CRESTOR) 20 mg tablet Take 1 tablet by mouth once daily. vit A/vit C/vit E/zinc/copper (OCUVITE PRESERVISION ORAL) Take 1 tablet by mouth twice daily. fluticasone (FLONASE) 50 mcg/actuation nasal spray Use 2 Sprays in each nostril once daily. Rinse mouth after use. multivitamin tablet Take 1 tablet by mouth once daily. COMPOUNDED PRESCRIPTION CPAP mask of patient choice and supplies as needed. Dx 780.57 aspirin(ECOTRIN LOW STRENGTH 81 MG TAB) Take one(1) tablet daily. No current facility-administered medications for this visit. Medications and allergies reviewed by this provider. SOCIAL HISTORY Social History Tobacco Use Smoking status: Never Smokeless tobacco: Never Vaping Use Vaping status: Never Used Substance Use Topics Alcohol use: Yes Alcohol/week: 1.0 standard drink of alcohol Types: 1 Cans of Beer (12oz) per week Drug use: No REVIEW OF SYSTEMS All other reviewed and negative other than HPI. OBJECTIVE: BP 114/64 Pulse 71 Resp 16 Wt 90.4 kg (199 lb 4.7 oz) SpO2 97% BMI 29.43 kg/m? . Vital signs reviewed by this provider. APPEARANCE Well appearing, alert, in no acute distress, well-hydrated, well nourished. EYES conjunctiva and sclera normal. EARS External ears normal, canals clear HEART RRR with normal S1 and S2, no murmurs, no gallops, no JVD appreciated LUNG clear to auscultation. No wheezes, rhonchi or rales EXTREMITIES Extremities normal, No deformities, No skin discoloration, and No edema SKIN Skin color, texture, turgor normal, no suspicious rashes or lesions to exposed skin Latest Ref Rng 03/09/2024 Hemoglobin A1C 4.3 - 5.6 % 5.6 Estimated Average Glucose mg/dL 114 Depression Screening Never done Anxiety Screening Never done LDL Cholesterol due on 02/28/2025 Annual PCP Team Chronic Disease Visit due on 09/07/2025 Diabetes Screening due on 03/09/2027 DTaP,Tdap,Td Vaccine(3 - Td or Tdap) due on 02/05/2028 Influenza Vaccine Completed Advance Directive Discussion Completed RSV Vaccine Completed Hepatitis C Scre (more content not included)... Normal [facility] XR Knee - left 4 Viewson IMPRESSION: Mild degenerative changes of the bilateral knees as described. Manager Of Investigations: VIVI Transcribe Date/Time: Aug 13 2023 11:07A Dictated by : SONY ESPINAL MD This examination was interpreted and the report reviewed and electronically signed by: SONY ESPINAL MD on Aug 13 2023 11:10AM [facility] DIVISION OF RADIOLOGY * * *Final Report* * * DATE OF EXAM: Aug 12 2023 10:02AM WOX 5202 - XR KNEE 4V AP/PA BOTH+LAT/MELLO LT / PROCEDURE REASON: Acute pain of left knee * * * * Physician Interpretation * * * * EXAM(s): XR KNEE 4V AP/PA BOTH+LAT/MELLO LT EXAM DATE/TIME: 08/12/2023 10:02 AM HISTORY: 77 years old Clinical information: Acute pain of left knee Intermittent left medial knee pain x 1 month without injury TECHNIQUE: Images: XR KNEE 4V AP/PA BOTH+LAT/MELLO LT Comparison: None. RESULT: Findings: Bone density appears well-preserved. No fractures or dislocations are seen. Right knee: Joint spaces are preserved. Trace osteophytic lipping in the lateral compartment and spurring of the tibial spine. Left knee: Joint spaces are preserved. Spurring of the tibial spines and patellofemoral compartmental osteophytes. Trace knee joint effusion, likely physiologic. Surgical clips along the medial distal femur and proximal tibia. DIVISION OF RADIOLOGY Provider, [facility] - 08/13/2023 * * *Final Report* * * DATE OF EXAM: Aug 12 2023 10:02AM WOX 5202 - XR KNEE 4V AP/PA BOTH+LAT/MELLO LT / PROCEDURE REASON: Acute pain of left knee * * * * Physician Interpretation * * * * EXAM(s): XR KNEE 4V AP/PA BOTH+LAT/MELLO LT EXAM DATE/TIME: 08/12/2023 10:02 AM HISTORY: 77 years old Clinical information: Acute pain of left knee Intermittent left medial knee pain x 1 month without injury TECHNIQUE: Images: XR KNEE 4V AP/PA BOTH+LAT/MELLO LT Comparison: None. RESULT: Findings: Bone density appears well-preserved. No fractures or dislocations are seen. Right knee: Joint spaces are preserved. Trace osteophytic lipping in the lateral compartment and spurring of the tibial spine. Left knee: Joint spaces are preserved. Spurring of the tibial spines and patellofemoral compartmental osteophytes. Trace knee joint effusion, likely physiologic. Surgical clips along the medial distal femur and proximal tibia. IMPRESSION IMPRESSION: Mild degenerative changes of the bilateral knees as described. Manager Of Investigations: VIVI Transcribe Date/Time: Aug 13 2023 11:07A Dictated by : SONY ESPINAL MD This examination was interpreted and the report reviewed and electronically signed by: SONY ESPINAL MD on Aug 13 2023 11:10AM EST [facility] XR Knee - left 4 ViewsOrdere d By: [facility] Provider on 08-13-2023 [facility] XR Knee - left 4 Viewson Radiology Study observation (narrative) [facility] Basophil percentageon 2021 Bilirubin [Mass/Vol] 1.10 mg/dL 0.20-1.00 [facility] Work Phone: Comment on above: For patients on eltr ombopag therapy, use of Dimension [place] TBIL is not recommended. Cholesterol [Mass/Vol] 114 mg/dL <[address] [facility] Work Phone: Comment on above: <200 mg/dL Desirable 200-240 mg/dL Borderline >240 mg/dL High Risk Protein [Mass/Vol] 6.6 g/dL 6.4-8.2 [facility] Work Phone: Triglyceride [Mass/Vol] 84 mg/dL <199 [facility] Work Phone: Comment on above: The drugs N-Acetylcy steine and Metamizole may falsely depress this assay.Serum Triglycerides Reference Interval Normal <150 mg/dL Borderline high 150 - 199 mg/dL High 200 - 499 mg/dL Very High > or = 500 mg/dL Direct bilirubinon Bilirubin.direct [Mass/Vol] 0.25 mg/dL 0.00-0.3 0 [facility] Work Phone: Laboratory - Chemistry and C hemistry - challengeon 02-22-2022 ALP [Catalytic activity/Vol] 48 U/L 45-117 [facility] Work Phone: ALT [Catalytic activity/Vol] 21 U/L 16-61 [facility] Work Phone: Globulin (S) [Mass/Vol] 3.0 g/dL 2.2-4.2 [facility] Work Phone: Serum or plasma albumin rakan urement (mass/volume)on 02-22-2022 Albumin [Mass/Vol] 3.6 g/dL 3.2-5.0 [facility] Work Phone: Serum or plasma cholesterol in HDL measurement (mass/volume)on 02-22-2022 Cholesterol in HDL [Mass/Vol] 41 mg/dL >40 [facility] Work Phone: Comment on above: The drugs N-Acetylcy steine and Metamizole may falsely depress this assay. Reference Range HDL <40 mg/dL Low HDL Cholesterol HDL >or= 60 mg/dL High HDL Cholesterol Serum or plasma cholesterol in VLDL measurement (mass/volume)on 02-22-2022 Cholesterol in VLDL [Mass/Vol] 17 mg/dL 5-40 [facility] Work Phone: Serum or plasma low density lipoprotein (LDL) cholesterol measurement (mass/volume)on 02-22-2022 Cholesterol in LDL [Mass/Vol] 56 mg/dL 0-130 [facility] Work Phone: Thin prep Papanicolaou smear with manual screeningon 02-22-2022 Thin prep Papanicolaou smear with manual screening 15 U/L 15-37 [facility] Work Phone: Lab Report: Lipid Profileon 05-22-2017 Cholesterol 126 mg/dL Invalid Interpretation Code 200 [facility] [employer] Phone: [phone] HDL Cholesterol 37 mg/dL Low [facility] Work Phone: [phone] LDL Cholesterol 50 mg/dL Invalid Interpretation Code 0-130 [facility] [employer] Phone: [phone] Triglyceride 193 mg/dL Invalid Interpretation Code [facility] [employer] Phone: [phone] very low density lipoproteins 39 mg/dL Invalid Interpretation Code 5-40 [facility] Work Phone: [phone] Lab Report: Liver Profileon 05-22-2017 Alanine aminotransferase (ALT) 26 U/L Invalid Interpretation Code 12-78 [facility] Work Phone: [phone] Albumin 3.6 g/dL Invalid Interpretation Code 3.4-5.0 [facility] [employer] Phone: [phone] Alkaline phosphatase (ALP) 57 U/L Inval id Interpretation Code 45-117 [facility] [employer] Phone: [phone] Aspartate aminotransferase (AST) 18 U/L Invalid Interpretation Code 15-37 [facility] [employer] Phone: [phone] Bilirubin (direct) 0.15 mg/dL Invalid Interpretation Code 0.00-0.30 [facility] [employer] Phone: [phone] Bilirubin (total) 0.60 mg/dL Invalid Interpretation Code 0.20-1.00 [facility] [employer] Phone: [phone] Globulin 3.1 g/dL Invalid Interpretation Code 2.3-3.5 [facility] [employer] Phone: [phone] Protein 6.7 g/dL Invalid Interpretation Code 6.4-8.2 [facility] [employer] Phone: [phone] Office Visit: [facility] 05-22-20 17 Documentation of current medications (procedure) Done Invalid Interpretation Code [facility] [employer] Phone: [phone] Fall risk assessment No Invalid Interpretation Code [facility] [employer] Phone: [phone] Office Visiton 11-20-2016 Documentation of current medications (procedure) Done Invalid Interpretation Code [facility] [employer] Phone: [phone] Clinical Lists Update: Prelo jig operator 11-19-2016 Left ventricular Ejection fraction 60 % Invalid Interpretation Code [facility] [employer] Phone: [phone] Office Visit: [facility] 05-20-20 16 Dietary management education, guidance, and counseling (procedure) yes Invalid Interpretation Code [facility] [employer] Phone: [phone] Replaced Document: Janelle PARKINSON Observationson 05-20-2016 electrocardiogram interpretation Sinus Bradycardia -First degree A-V block Dhiraj = 220-Left axis -anterior fascicular block. -Old inferior infarct -Poor R-wave progression -nonspecific -consider old anterior infarct. ABNORMAL Invalid Interpretation Code [facility] [employer] Phone: [phone] GE use only - for [employer] import when terms are not otherwise specified 391 ms Invalid Interpretation Code [facility] [employer] Phone: [phone] P wave axis, electrocardiogram -18 deg Invalid Interpretation Code [facility] [employer] Phone: [phone] OH interval, electrocardiogram 220 ms Invalid Interpretation Code [facility] [employer] Phone: [phone] Pulse (Heart Rate) 57 /min Invalid Interpretation Code [facility] [employer] Phone: [phone] QRS axis, electrocardiogram -60 deg Inva lid Interpretation Code [facility] [employer] Phone: [phone] QRS duration, electrocardiogram 106 ms Invalid Interpretation Code [facility] [employer] Phone: [phone] QT interval, electrocardiogram new path ms Invalid Interpretation Code [facility] [employer] Phone: [phone] T wave axis, electrocardiogram -1 deg Invalid Interpretation Code [facility] [employer] Phone: [phone] Clinical Lists Update: Prelo jig operator 01-21-2016 Anion gap 10 mmol/L Invalid Interpretation Code [facility] [employer] Phone: [phone] Calcium 9.6 mg/dL Invalid Interpretation Code [facility] [employer] Phone: [phone] Chloride 105 mmol/L Invalid Interpretation Code [facility] Work Phone: [phone] Cholesterol to HDL Ratio 3.88 {ratio} Invalid Interpretation Code [facility] [employer] Phone: [phone] CO2 25 mmol/L Invalid Interpretation Code [facility] Work Phone: [phone] Creatinine 0.98 mg/dL Invalid Interpretation Code [facility] [employer] Phone: [phone] Glucose 101 mg/dL High [facility] Work Phone: [phone] HbA1c 5.7 % High [facility] Work Phone: [phone] LDL/HDL ratio, serum 1.75 Invalid Interpretation Code [facility] Work Phone: [phone] Potassium 4.4 mmol/L Invalid Interpretation Code [facility] Work Phone: [phone] Sodium 140 mmol/L Invalid Interpretation Code [facility] Work Phone: [phone] Urea nitrogen 24 mg/dL Invalid Interpretation Code [facility] Work Phone: [phone] Office Visiton 11-08-2015 Tobacco use CPHS Never smoker Invalid Interpretation Code [facility] Work Phone: [phone] Lab Report: Basic Metabolic Profile (BMP)on 06-05-2015 BUN/Creatinine Ratio 14.4 RATIO Invalid Interpretation Code 10-20 [facility] Work Phone: [phone] eGFR (non-black) 70 mL/min/{1.73_m2} Invalid Interpretation Code >60 [facility] Work Phone: [phone] eGFR (non-black) 85 mL/min/{1.73_m2} Invalid Interpretation Code >60 [facility] Work Phone: [phone] Lab Report: Magnesiumon 05-13 Magnesium 1.9 mg/dL Invalid Interpretation Code 1.8-2.4 [facility] Work Phone: [phone] Office Visiton 11-23-2014 cardiac risk group C Invalid Interpretation Code [facility] Work Phone: [phone] General cardiovascular disease 10Y risk [#] [place].D'Agostanaly N/A Invalid Interpretation Code [facility] Work Phone: [phone] Lab Report: CBCDon 4 Absolute Neutrophil count 4.7 X10 3/UL Normal 2.0-7.7 [facility] Work Phone: [phone] Basophils/100 leukocytes 0.3 % Normal 0-1 [facility] Work Phone: [phone] Eosinophils/100 leukocytes 2.0 % Normal 0-5 [facility] Work Phone: [phone] Erythrocytes (RBC) 5.13 10*6/uL Normal 4.6-6.2 [facility] Work Phone: [phone] Hematocrit (HCT) 43.3 % Normal 40-54 [facility] Work Phone: [phone] Hemoglobin (HGB) 15.0 g/dL Normal 13.0-16.5 [facility] Work Phone: Lymphocytes/100 leukocytes 23.8 % Normal 19-41 [facility] Work Phone: MCH 29.2 pg Normal 27.0-32.0 [facility] Work Phone: [phone] MCHC 34.6 G/GL Normal 32-36 [facility] Work Phone: [phone] MCV 84.4 fL Normal 80-94 [facility] Work Phone: Monocytes/100 leukocytes 11.2 % High 0-10 [facility] Work Phone: Neutrophils/100 leukocytes 62.6 % Normal 47-70 [facility] Work Phone: [phone] 10*3/mm3 Normal 150-450 [facility] Work Phone: [phone] PMV by Oscar 10.3 fL Normal 6.2-12.0 [facility] Work Phone: [phone] WBC (Leukocytes) 7.5 10*3/uL Normal 4.4-11.0 [facility] Work Phone: [phone] Lab Report: TROPon 4 Troponin I ng/mL Normal <0.06 [facility] Work Phone: [phone] Replaced Document: Janelle PARKINSON Observationson 11-22-2012 Pulse (Heart Rate) 408 ms Invalid Interpretation Code [facility] Work Phone: [phone] Vital Signs Date Time Vital Sign Value Performing Clinician Edilma blackburn 06-29-2025 13:55-0400 Body height 177.[address] Danie Haines MD Work Phone: [facility] 06-29-2025 13:55-0400 Body mass index (BMI) [Ratio] 27.8 kg/m2 Dr. Danie Haines MD Work Phone: [facility] 06-29-2025 13:55-0400 Body weight 87.[address] Danie Haines MD Work Phone: [facility] 06-29-2025 13:55-0400 Diastolic blood pressure 58 mm[Hg] Dr. Danie Haines MD Work Phone: [facility] 06-29-2025 13:55-0400 Heart rate 68 /min Dr. Danie Haines MD Work Phone: [phone] [place] [address] 06-29-2025 13:55-0400 Respiratory rate 16 /min Dr. Danie Haines MD Work Phone: [phone] [place] [address] 06-29-2025 13:55-0400 Systolic blood pressure 113 mm[Hg] Dr. Danie Haines MD Work Phone: [facility] 04-10-2025 10:31-0400 Body height 175.3 cm Leandro Haines MD Work Phone: [facility] 04-10-2025 10:31-0400 Body mass index (BMI) [Ratio] 29 kg/m2 Leandro Haines MD Work Phone: [facility] 04-10-2025 10:31-0400 Body weight 89.09 kg Leandro Haines MD Work Phone: [facility] 04-10-2025 10:31-0400 Diastolic blood pressure 64 mm[Hg] Leandro Haines MD Work Phone: [facility] 04-10-2025 10:31-0400 Heart rate 59 /min Leandro Haines MD Work Phone: [facility] 04-10-2025 10:31-0400 SaO2% (BldA) [Mass fraction] 97 % Leandro Haines MD Work Phone: [facility] 04-10-2025 10:31-0400 Systolic blood pressure 118 mm[Hg] Leandro Haines MD Work Phone: [facility] 10-24-2024 11:59-0500 Body mass index (BMI) [Ratio] 29.3 kg/m2 Anita Podlogar REHAB DIRECTOR OCCUPATIONAL THERAPIST.THERMITE WELDER Work Phone: [facility] 10-24-2024 11:59-0500 Body weight 90 kg Anita Podlogar REHAB DIRECTOR OCCUPATIONAL THERAPIST.THERMITE WELDER Work Phone: [facility] 10-24-2024 11:59-0500 Diastolic blood pressure 74 mm[Hg] Anita Podlogar REHAB DIRECTOR OCCUPATIONAL THERAPIST.THERMITE WELDER Work Phone: [facility] 10-24-2024 11:59-0500 Heart rate 68 /min Anita Podlogar REHAB DIRECTOR OCCUPATIONAL THERAPIST.THERMITE WELDER Work Phone: [facility] 10-24-2024 11:59-0500 Respiratory rate 16 /min Anita Podlogar REHAB DIRECTOR OCCUPATIONAL THERAPIST.THERMITE WELDER Work Phone: [facility] 10-24-2024 11:59-0500 SaO2% (BldA) [Mass fraction] 96 % Anita Podlogar REHAB DIRECTOR OCCUPATIONAL THERAPIST.THERMITE WELDER Work Phone: [facility] 10-24-2024 11:59-0500 Systolic blood pressure 102 mm[Hg] Anita Podlogar REHAB DIRECTOR OCCUPATIONAL THERAPIST.THERMITE WELDER Work Phone: [facility] 10-08-2024 20:13-0500 Body temperature 98.2 [degF] Dr. Danie Haines MD Work Phone: [facility] 10-08-2024 20:13-0500 Diastolic blood pressure 88 mm[Hg] Dr. Danie Haines MD Work Phone: [facility] 10-08-2024 20:13-0500 Heart rate 66 /min Dr. Dnaie Haines MD Work Phone: [facility] 10-08-2024 20:13-0500 Respiratory rate 16 /min Dr. Danie Haines MD Work Phone: [facility] 10-08-2024 20:13-0500 SaO2% (BldA) [Mass fraction] 98 % Dr. Danie Haines MD Work Phone: [facility] 10-08-2024 20:13-0500 Systolic blood pressure 121 mm[Hg] Dr. Danie Haines MD Work Phone: [phone] [place] [address] 10-08-2024 15:38-0500 Body height 177.[address] Danie Haines MD Work Phone: [phone] [place] [address] 10-08-2024 15:38-0500 Body mass index (BMI) [Ratio] 29 kg/m2 Dr. Danie Haines MD Work Phone: [phone] [place] [address] 10-08-2024 15:38-0500 Body weight 91.[address] Danie Haines MD Work Phone: [facility] 10-07-2024 10:40-0500 Body mass index (BMI) [Ratio] 29.82 kg/m2 Catrachita Waters REHAB DIRECTOR OCCUPATIONAL THERAPIST.THERMITE WELDER Work Phone: [facility] 10-07-2024 10:40-0500 Body weight 91.6 kg Catrachita Waters REHAB DIRECTOR OCCUPATIONAL THERAPIST.THERMITE WELDER Work Phone: [facility] 10-07-2024 10:40-0500 Diastolic blood pressure 64 mm[Hg] Catrachita Waters REHAB DIRECTOR OCCUPATIONAL THERAPIST.THERMITE WELDER Work Phone: [facility] 10-07-2024 10:40-0500 Heart rate 88 /min Catrachita Waters REHAB DIRECTOR OCCUPATIONAL THERAPIST.THERMITE WELDER Work Phone: [facility] 10-07-2024 10:40-0500 Respiratory rate 16 /min Catrachita Waters REHAB DIRECTOR OCCUPATIONAL THERAPIST.THERMITE WELDER Work Phone: [facility] 10-07-2024 10:40-0500 SaO2% (BldA) [Mass fraction] 97 % Catrachita Waters REHAB DIRECTOR OCCUPATIONAL THERAPIST.THERMITE WELDER Work Phone: [facility] 10-07-2024 10:40-0500 Systolic blood pressure 110 mm[Hg] Catrachita Waters REHAB DIRECTOR OCCUPATIONAL THERAPIST.THERMITE WELDER Work Phone: [facility] 09-26-2024 12:58-0500 Body mass index (BMI) [Ratio] 29.4 kg/m2 Anita Podlogar REHAB DIRECTOR OCCUPATIONAL THERAPIST.THERMITE WELDER Work Phone: [facility] 09-26-2024 12:58-0500 Body weight 90.3 kg Anita Podlogar REHAB DIRECTOR OCCUPATIONAL THERAPIST.THERMITE WELDER Work Phone: [facility] 09-26-2024 12:58-0500 Diastolic blood pressure 62 mm[Hg] Anita Podlogar REHAB DIRECTOR OCCUPATIONAL THERAPIST.THERMITE WELDER Work Phone: [facility] 09-26-2024 12:58-0500 Heart rate 59 /min Anita Podlogar REHAB DIRECTOR OCCUPATIONAL THERAPIST.THERMITE WELDER Work Phone: [facility] 09-26-2024 12:58-0500 Respiratory rate 16 /min Anita Podlogar REHAB DIRECTOR OCCUPATIONAL THERAPIST.THERMITE WELDER Work Phone: [facility] 09-26-2024 12:58-0500 SaO2% (BldA) [Mass fraction] 98 % Anita Podlogar REHAB DIRECTOR OCCUPATIONAL THERAPIST.THERMITE WELDER Work Phone: [facility] 09-26-2024 12:58-0500 Systolic blood pressure 118 mm[Hg] Anita Podlogar REHAB DIRECTOR OCCUPATIONAL THERAPIST.THERMITE WELDER Work Phone: [facility] 09-07-2024 12:27-0500 Body mass index (BMI) [Ratio] 29.43 kg/m2 Anita Podlogar REHAB DIRECTOR OCCUPATIONAL THERAPIST.THERMITE WELDER Work Phone: [facility] 09-07-2024 12:27-0500 Body weight 90.4 kg Anita Podlogar REHAB DIRECTOR OCCUPATIONAL THERAPIST.THERMITE WELDER Work Phone: [facility] 09-07-2024 12:27-0500 Diastolic blood pressure 64 mm[Hg] Anita Podlogar REHAB DIRECTOR OCCUPATIONAL THERAPIST.THERMITE WELDER Work Phone: [facility] 09-07-2024 12:27-0500 Heart rate 71 /min Anita Podlogar REHAB DIRECTOR OCCUPATIONAL THERAPIST.THERMITE WELDER Work Phone: [facility] 09-07-2024 12:27-0500 Respiratory rate 16 /min Anita Podlogar REHAB DIRECTOR OCCUPATIONAL THERAPIST.THERMITE WELDER Work Phone: [facility] 09-07-2024 12:27-0500 SaO2% (BldA) [Mass fraction] 97 % Anita Podlogar REHAB DIRECTOR OCCUPATIONAL THERAPIST.THERMITE WELDER Work Phone: [facility] 09-07-2024 12:27-0500 Systolic blood pressure 114 mm[Hg] Anita Podlogar REHAB DIRECTOR OCCUPATIONAL THERAPIST.THERMITE WELDER Work Phone: [facility] 02-25-2024 13:18-0400 Body mass index (BMI) [Ratio] 30.57 kg/m2 Leandro Haines MD Work Phone: [facility] 02-25-2024 13:18-0400 Body weight 93.89 kg Leandro Haines MD Work Phone: [facility] 02-25-2024 13:18-0400 Diastolic blood pressure 66 mm[Hg] Leandro Haines MD Work Phone: [facility] 02-25-2024 13:18-0400 Heart rate 75 /min Leandro Haines MD Work Phone: [facility] 02-25-2024 13:18-0400 Respiratory rate 16 /min Leandro Haines MD Work Phone: [facility] 02-25-2024 13:18-0400 SaO2% (BldA) [Mass fraction] 96 % Leandro Haines MD Work Phone: [facility] 02-25-2024 13:18-0400 Systolic blood pressure 110 mm[Hg] Leandro Haines MD Work Phone: [facility] 02-02-2024 11:40-0400 Body mass index (BMI) [Ratio] 30.8 kg/m2 Leandro Haines MD Work Phone: [facility] 02-02-2024 11:40-0400 Body weight 94.62 kg Leandro Haines MD Work Phone: [facility] 02-02-2024 11:40-0400 Diastolic blood pressure 58 mm[Hg] Leandro Haines MD Work Phone: [facility] 02-02-2024 11:40-0400 Heart rate 70 /min Leandro Haines MD Work Phone: [facility] 02-02-2024 11:40-0400 Respiratory rate 16 /min Leandro Haines MD Work Phone: [facility] 02-02-2024 11:40-0400 SaO2% (BldA) [Mass fraction] 97 % Leandro Haines MD Work Phone: [facility] 02-02-2024 11:40-0400 Systolic blood pressure 100 mm[Hg] Leandro Haines MD Work Phone: [facility] 11-17-2023 14:34-0500 Body weight 93.08 kg Leandro Haines MD Work Phone: [facility] 11-17-2023 14:34-0500 Diastolic blood pressure 58 mm[Hg] Leandro Haines MD Work Phone: [facility] 11-17-2023 14:34-0500 Heart rate 68 /min Leandro Haines MD Work Phone: [facility] 11-17-2023 14:34-0500 Respiratory rate 16 /min Leandro Haines MD Work Phone: [facility] 11-17-2023 14:34-0500 SaO2% (BldA) [Mass fraction] 96 % Leandro Haines MD Work Phone: [facility] 11-17-2023 14:34-0500 Systolic blood pressure 106 mm[Hg] Leandro Haines MD Work Phone: [facility] 09-28-2023 13:22-0500 Body weight 92.9 kg Anita Stone APRN.CNP Work Phone: [facility] 12-18-2023 13:22-0500 Diastolic blood pressure 60 mm[Hg] Anita Podlogar REHAB DIRECTOR OCCUPATIONAL THERAPIST.THERMITE WELDER Work Phone: [facility] 09-28-2023 13:22-0500 Heart rate 58 /min Anita Podlogar REHAB DIRECTOR OCCUPATIONAL THERAPIST.THERMITE WELDER Work Phone: [facility] 09-28-2023 13:22-0500 Respiratory rate 18 /min Anita Podlogar REHAB DIRECTOR OCCUPATIONAL THERAPIST.THERMITE WELDER Work Phone: [facility] 09-28-2023 13:22-0500 SaO2% (BldA) [Mass fraction] 96 % Anita Podlogar REHAB DIRECTOR OCCUPATIONAL THERAPIST.THERMITE WELDER Work Phone: [facility] 09-28-2023 13:22-0500 Systolic blood pressure 96 mm[Hg] Anita Podlogar REHAB DIRECTOR OCCUPATIONAL THERAPIST.THERMITE WELDER Work Phone: [facility] 08-12-2023 08:57-0400 Body height 175.3 cm Leandro Haines MD Work Phone: [facility] 08-12-2023 08:57-0400 Body weight 93.89 kg Leandro Haines MD Work Phone: [facility] 08-12-2023 08:57-0400 Diastolic blood pressure 70 mm[Hg] Leandro Haines MD Work Phone: [facility] 08-12-2023 08:57-0400 Heart rate 72 /min Leandro Haines MD Work Phone: [facility] 08-12-2023 08:57-0400 Respiratory rate 16 /min Leandro Haines MD Work Phone: [facility] 08-12-2023 08:57-0400 Systolic blood pressure 122 mm[Hg] Leandro Haines MD Work Phone: [facility] 07-16-2022 11:23-0400 Body weight 92.99 kg Leandro Haines MD Work Phone: [facility] 07-16-2022 11:23-0400 Diastolic blood pressure 70 mm[Hg] Leandro Haines MD Work Phone: [facility] 07-16-2022 11:23-0400 Heart rate 80 /min Leandro Haines MD Work Phone: [facility] 07-16-2022 11:23-0400 Respiratory rate 14 /min Leandro Haines MD Work Phone: [facility] 07-16-2022 11:23-0400 Systolic blood pressure 118 mm[Hg] Leandro Haines MD Work Phone: [facility] 04-18-2022 14:13-0400 Diastolic blood pressure 54 mm[Hg] Dr. Danie Haines Work Phone: [facility] Work Phone: 04-18-2022 14:13-0400 Heart rate 72 /min Dr. Danie Haines Work Phone: [facility] Work Phone: 04-18-2022 14:13-0400 Respiratory rate 20 /min Dr. Danie Haines Work Phone: [facility] Work Phone: 04-18-2022 14:13-0400 Systolic blood pressure 92 mm[Hg] Dr. Danie Haines Work Phone: [facility] Work Phone: 02-27-2022 14:35-0400 Body height 177.[address] Danie Haines Work Phone: [facility] Work Phone: 02-27-2022 14:35-0400 Body mass index (BMI) [Ratio] 28.8 kg/m2 Dr. Danie Haines Work Phone: [facility] Work Phone: 02-27-2022 14:35-0400 Body weight 91.[address] Danie Haines Work Phone: [facility] Work Phone: 02-27-2022 14:35-0400 Diastolic blood pressure 52 mm[Hg] Dr. Danie Haines Work Phone: [facility] Work Phone: 02-27-2022 14:35-0400 Heart rate 66 /min Dr. Danie Haines Work Phone: [facility] Work Phone: 02-27-2022 14:35-0400 Respiratory rate 16 /min Dr. Danie Haines Work Phone: [facility] Work Phone: 02-27-2022 14:35-0400 SaO2% (BldA) [Mass fraction] 98 % Dr. Danie Haines Work Phone: [facility] Work Phone: 02-27-2022 14:35-0400 Systolic blood pressure 92 mm[Hg] Dr. Danie Haines Work Phone: [facility] Work Phone: 05-22-2017 11:22-0400 BMI (Body Mass Index) 34.23 kg/m2 Angella Giuliano [facility] Work Phone: 05-22-2017 11:22-0400 BP Diastolic 56 mm[Hg] Angella Giul[facility] Work Phone: 05-22-2017 11:22-0400 BP Systolic 108 mm[Hg] Angella Giuliano [facility] Work Phone: 05-22-2017 11:22-0400 Height 177.8 cm Angella Giuliano [facility] Work Phone: 05-22-2017 11:22-0400 Pulse (Heart Rate) 68 /min Angellanegro [facility] Work Phone: 05-22-2017 11:22-0400 Respiratory Rate 20 /min [facility] Work Phone: 05-22-2017 11:22-0400 Weight 108.23 kg Angella [facility] Work Phone: 11-20-2016 10:31-0500 BMI (Body Mass Index) 33.76 kg/m2 [facility] Work Phone: 11-20-2016 10:31-0500 BP Diastolic 60 mm[Hg] Angella [facility] Work Phone: 11-20-2016 10:31-0500 BP Systolic 100 mm[Hg] [facility]ella [facility] Work Phone: 11-20-2016 10:31-0500 BSA (Body Surface Area) 2.24 m2 Angella [facility] Work Phone: 11-20-2016 10:31-0500 Pulse (Heart Rate) 72 /min Angella [facility] Work Phone: 11-20-2016 10:31-0500 Respiratory Rate 20 /min Angella [facility] Work Phone: 11-20-2016 10:31-0500 Weight 106.73 kg Angella [facility] Work Phone: 11-08-2015 10:12-0500 Height 177.8 cm Angella [facility] Work Phone: Encounters Encounter Date Encounter Type Care Provider Facility Start: 07-31-2025 ambulatory Shai Rodriguez Facility:[facility] Start: 07-26-2025 End: 07-26-2025 ambulatory [facility] Facility:[facility] Start: 07-26-2025 End: 07-26-2025 ambulatory [facility] Facility:[facility] Start: 07-24-2025 End: 07-24-2025 ambulatory LEANDRO HAINES Facility:[facility] Start: 06-29-2025 End: 06-29-[address] Shai Rodriguez MD -[facility] Work Phone: Start: 06-29-2025 End: 06-29-[address] Danie Haines MD Work Phone: -[facility] Start: 05-12-2025 End: 05-12-[address] Danie Haines MD Work Phone: -Laboratory Start: 05-12-2025 End: 05-12-[address] Shai Rodriguez MD -Laboratory Work Phone: Start: 05-12-2025 End: 05-12-2025 ambulatory Shai Rodriguez Facility:[facility] Start: 04-11-2025 End: 04-11-2025 Follow-up encounter Leandro Haines MD Work Phone: [facility] Start: 04-10-2025 End: 04-10-2025 ambulatory LEANDRO HAINES Facility:[facility] Start: 04-10-2025 End: 04-10-2025 Patient encounter procedure Leandro Haines MD Work Phone: [facility] Comment on above: Concern about memory (Primary Dx); Mild cognitive impairment; Episodic lightheadedness; Hyperlipidemia, unspecified hyperlipidemia type; Encounter for examination for driving license Start: 04-10-2025 End: 04-10-2025 ambulatory LEANDRO HAINES Facility:[facility] Start: 02-28-2025 ambulatory LEANDRO Zuluaga acility:[facility] Start: 02-28-2025 End: 02-28-2025 ambulatory LEANDRO HAINES Facility:[facility] Start: 02-16-2025 End: 02-16-2025 ambulatory Leandro Haines MD Work Phone: [facility] Comment on above: lab work Start: 01-24-2025 End: 01-28-2025 ambulatory Leandro Haines MD Work Phone: [facility] Comment on above: C-PAP Start: 01-10-2025 End: 01-10-2025 Telephone encounter Leandro Haines MD Work Phone: [facility] Comment on above: Orders Start: 12-09-2024 End: 12-09-[address] Danie Haines MD Work Phone: [facility] Work Phone: Start: 12-09-2024 End: 12-09-[address] Shai Rodriguez MD -Laboratory Work Phone: Start: 12-09-2024 End: 12-09-2024 ambulatory Shai Rodriguez Facility:[facility] Start: 10-24-2024 End: 10-24-2024 Patient encounter procedure Anita Stone REHAB DIRECTOR OCCUPATIONAL THERAPIST.THERMITE WELDER Work Phone: [facility] Comment on above: Preop examination (P rimary Dx) Start: 10-24-2024 End: 10-24-2024 Preprocedural examination done Anita Stone REHAB DIRECTOR OCCUPATIONAL THERAPIST.THERMITE WELDER Work Phone: [facility] Work Phone: Start: 10-24-2024 End: 10-24-2024 ambulatory ANITA PODLOGAR Facility:[facility] Start: 10-24-2024 Encounter for other preprocedural examination ANITA KOOLOGJOSE [facility] Start: 10-08-2024 End: 10-08-2024 Emergency department patient visit Dr. Monica Neil DO -Emergency Department Work Phone: Start: 10-07-2024 End: 10-07-2024 Patient encounter procedure Catrachita Waters REHAB DIRECTOR OCCUPATIONAL THERAPIST.THERMITE WELDER Work Phone: [facility] Comment on above: Neck pain (Primary D x); Muscle tension pain Start: 10-07-2024 End: 10-07-2024 ambulatory CATRACHITA WATERS Facility:[facility] Start: 09-26-2024 End: 09-26-2024 Patient encounter procedure Anita Podlogjose REHAB DIRECTOR OCCUPATIONAL THERAPIST.THERMITE WELDER Work Phone: [facility] Comment on above: Neck pain (Primary D x) Start: 09-26-2024 End: 09-26-2024 ambulatory ANITA PODLOGAR Facility:[facility] Start: 09-07-2024 End: 09-07-2024 Patient encounter procedure Anita Podlogar REHAB DIRECTOR OCCUPATIONAL THERAPIST.THERMITE WELDER Work Phone: [facility] [place] Comment on above: Hyperlipidemia, unsp ecified hyperlipidemia type (Primary Dx); Palpitations; HOSSEIN on CPAP; Prediabetes; Coronary artery disease involving zuni coronary artery of zuni heart without angina pectoris; Chronic systolic congestive heart failure (HCC); Frequent falls Start: 09-07-2024 End: 09-07-2024 ambulatory ANITA PODLOGAR Facility:[facility] Start: 08-31-2024 ambulatory ANITA PODLOGAR Facility :[facility] Start: 07-22-2024 End: 07-22-2024 ambulatory [facility] [place] Work Phone: [facility] Start: 07-22-2024 End: 07-22-2024 Patient encounter procedure Immunization [facility] Nurse [place] Work Phone: [facility] Start: 03-09-2024 Telephone encounter Danie Haines MD Work Phone: [facility] Comment on above: Results Start: 02-25-2024 End: 02-25-2024 Patient encounter procedure Leandro Haines MD Work Phone: [facility] [place] Comment on above: Medicare annual well ness visit, subsequent (Primary Dx); HOSSEIN on CPAP; Encounter for immunization Start: 02-02-2024 Telephone encounter Danie Haines MD Work Phone: [facility] [place] Comment on above: Appointment Start: 02-02-2024 End: 02-02-2024 Patient encounter procedure Leandro Haines MD Work Phone: [facility] [place] Comment on above: Fall in home, initia l encounter (Primary Dx); Contusion of left knee, initial encounter Start: 02-02-2024 End: 02-02-2024 ambulatory Nurse Intm/Famp Triage [facility] Work Phone: Nurse Phone Triage Comment on above: Fall Start: 11-17-2023 End: 11-17-2023 Patient encounter procedure Leandro Haines MD Work Phone: [facility] [place] Comment on above: Actinic keratosis (P rimary Dx); S/P cryotherapy of skin lesion Start: 09-28-2023 End: 09-28-2023 Patient encounter procedure nAita Stone APRN.THERMITE WELDER Work Phone: [facility] [place] Comment on above: Seborrheic keratosis (Primary Dx) Start: 09-25-2023 End: 09-25-2023 ambulatory Augusto Golias PT Work Phone: [facility] Comment on above: Acute pain of left k nee (Primary Dx) Start: 09-18-2023 End: 09-18-2023 ambulatory Augusto Golias PT Work Phone: [facility] Comment on above: Acute pain of left k nee (Primary Dx) Start: 09-11-2023 End: 09-11-2023 ambulatory Layla Steele PLANT ATTENDANT Work Phone: [facility] Comment on above: Acute pain of left k nee (Primary Dx) Start: 08-31-2023 Telephone encounter Danie Haines MD Work Phone: [facility] Comment on above: Results Start: 08-12-2023 End: 08-12-2023 Subsequent hospital visit by physician Bernie [facility] Work Phone: Radiology Comment on above: Acute pain of left k nee [M25.562] Start: 08-12-2023 End: 08-12-2023 Patient encounter procedure Leandro Haines MD Work Phone: [facility] [place] Comment on above: Acute pain of left k nee (Primary Dx) Start: 08-06-2023 ambulatory Leandro Haines MD Work Phone: [facility] Start: 08-06-2023 Patient encounter procedure Leandro Haines MD Work Phone: [facility] Comment on above: Orthopedic Referral Start: 07-14-2023 End: 07-14-2023 Nursing evaluation of patient and report Mi Nurse Work Phone: [facility] Comment on above: Need for vaccination (Primary Dx); Need for influenza vaccination Start: 07-06-2023 ambulatory Leandro Haines MD Work Phone: [facility] Comment on above: CPAP Approval Start: 12-31-2022 End: 12-31-2022 Patient encounter procedure Amilcar Gutiérrez Work Phone: Podiatry Comment on above: Hammertoe of right f oot (Primary Dx) Start: 12-12-2022 Telephone encounter Danie Haines MD Work Phone: [facility] Comment on above: Covid19 Concern Start: 10-20-2022 ambulatory Leandro Haines MD Work Phone: [facility] Comment on above: Authorization for Hu rui Start: 07-16-2022 End: 07-16-2022 ambulatory Mi Nurse Work Phone: [facility] Start: 07-16-2022 End: 07-16-2022 Patient encounter procedure Leandro Haines MD Work Phone: [facility] Comment on above: Bilateral impacted c erumen (Primary Dx); CAD (coronary artery disease); Coronary artery disease involving zuni heart without angina pectoris, unspecified vessel or lesion type Start: 07-14-2022 Non-patient / Non-visit Dr. Gilson Haines Work Phone: [facility] Start: 07-14-2022 End: 07-14-[address] Danie Haines Work Phone: [facility] Work Phone: Start: 07-14-2022 End: 07-14-[address] Danie Haines Work Phone: [facility] Start: 04-18-2022 End: 04-18-[address] Danie Haines Work Phone: [facility] Start: 04-08-2022 ambulatory Leandro Haines MD Work Phone: [facility] Comment on above: Red area growing on inner red arm below the elbow\\w Start: 04-02-2022 Non-patient / Non-visit Dr. Gilson Haines Work Phone: [facility] Start: 04-02-2022 End: 04-02-[address] Danie Haines Work Phone: [facility] Start: 03-31-2022 Non-patient / Non-visit Dr. Gilson Haines Work Phone: [facility] Start: 03-31-2022 End: 03-31-[address] [facility] Start: 02-27-2022 End: 02-27-[address] Danie Haines Work Phone: [facility] Start: 02-22-2022 End: 02-22-2022 Patient encounter procedure [facility] Start: 07-11-2009 Patient encounter status Baljit Haines MD Work Phone: [facility] Procedures Date Procedure Procedure Detail Performing Clinician Start: 10-08-2024 CT cervical spine wi thout contrast Dr. Danie Haines MD Work Phone: Start: 10-08-2024 CT of head without contrast Dr. Danie Haines MD Work Phone: Start: 07-22-2024 PFIZER-BIONTECH COVI D-19 VACCINE AGE 12+ YR (COMIRNATY) Chey Steele MD Work Phone: Start: 02-25-2024 PFIZER-BIONTECH COVI D-19 VACCINE (2022- SEASON) AGE 12+ YR Leandro Haines MD Work Phone: Start: 08-12-2023 Radiologic exam knee complete 4/more views Leandro Haines MD Work Phone: Start: 07-14-2023 INFLUENZA VACCINE, P RSV FREE, AGE 65+ YR, HIGH DOSE, QUADRIVALENT (FLUZONE HIGH-DOSE) Leandro Haines MD Work Phone: Start: 07-14-2023 PFIZER-BIONTMolecular Sensing COVI D-19 VACCINE (2022- SEASON) AGE 12+ YR Leandro Haines MD Work Phone: Start: 02-24-2023 Lipid 1996 panel - S ion or Plasma Leandro Haines MD Work Phone: Start: 07-16-2022 INFLUENZA SEASONAL QUADRIVALENT HIGH DOSE AGE 65+ Leandro Haines MD Work Phone: Start: 03-31-2022 Radionuclide imaging of perfusion of myocardium under exercise stress Dr. Danie Haines Work Phone: Start: 06-22-2021 Adult depression screening assessment Leandro Haines MD Work Phone: Start: 03-27-2020 Colonoscopy Danie Haines MD Work Phone: Start: 05-22-2017 End: 05-22-2017 DIRECTOR SYSTEMS Gay Orosco PA-C Work Phone: Start: 05-22-2017 End: 05-22-2017 Follow Up Appt 9 months Gay bermudez PA-C Work Phone: Start: 05-18-2017 End: 05-22-2017 *Hepatic Function Panel Ollie Hines Start: 05-18-2017 End: 05-22-2017 Lipid panel [AGGREGATE] Ollie Hines Start: 11-20-2016 End: 11-20-2016 Follow Up Appt 6 months Ollie Hines Start: 11-20-2016 End: 11-20-2016 MMM Shai Rodriguez MD Start: 08-13-2016 End: 11-18-2016 *Hepatic Function Panel Ollie Hines Start: 08-13-2016 End: 11-18-2016 Lipid panel [AGGREGATE] Ollie Hines Start: 05-20-2016 End: 05-20-2016 DIRECTOR SYSTEMS Gay Orosco PA-C Work Phone: Start: 05-20-2016 End: 05-20-2016 Electrocardiogram, complete Gay Orosco PA-C Work Phone: Start: 05-20-2016 End: 05-20-2016 Follow Up Appt 6 months Gay bermudez PA-C Work Phone: Start: 02-10-2016 End: 02-13-2016 Lipid panel [AGGREGATE] Ollie Hines Start: 11-08-2015 End: 11-08-2015 Follow Up Appt 6 months Ollie Hines Start: 11-08-2015 End: 11-08-2015 MMM Shai Rodriguez MD Start: 10-24-2015 End: 11-06-2015 *Hepatic Function Panel Ollie Hines Start: 10-24-2015 End: 11-06-2015 Lipid panel [AGGREGATE] Ollie Hines Start: 05-03-2015 End: 06-05-2015 *BMP Gay Orosco PA-C Work Phone: Start: 05-03-2015 End: 05-03-2015 DAISY Orosco PA-C Work Phone: Start: 05-03-2015 End: 05-04-2015 Documentation of current medications Gay Orosco PA-C Work Phone: Start: 05-03-2015 End: 05-03-2015 Follow Up Appt 6 months Gay bermudez PA-C Work Phone: Start: 05-03-2015 End: 06-05-2015 Magnesium Gay Orosco PA-C Work Phone: Start: 04-23-2015 End: 06-09-2015 *Hepatic Function Panel Ollie Hines Start: 04-23-2015 End: 06-09-2015 Magnesium Shai Rodriguez MD Start: 11-23-2014 End: 11-24-2014 Documentation of current medications Shai Rodriguez MD Start: 11-23-2014 End: 11-23-2014 Follow Up Appt 6 months Ollie Hines Start: 11-23-2014 End: 11-23-2014 MMM Shai Rodriguez MD Start: 08-23-2014 End: 11-23-2014 Follow Up Appt Other Shai Rodriguez MD Start: 08-22-2014 End: 08-22-2014 *BMP Shai Rodriguez MD Start: 08-22-2014 End: 08-22-2014 *CBC with Differential Shai Rodriguez MD Start: 08-22-2014 End: 08-22-2014 Troponin I Shai Rodriguez MD Start: 05-31-2014 End: 05-31-2014 DIRECTOR SYSTEMS Gay Orosco PA-C Work Phone: Start: 05-31-2014 End: 05-31-2014 Follow Up Appt 6 months Gay bermudez PA-C Work Phone: Start: 05-31-2014 End: 05-31-2014 Follow Up Appt Other Gay mendiola PA-C Work Phone: Start: 05-31-2014 End: 06-03-2014 Nuclear stress test -exercise Gay Orosco PA-C Work Phone: Start: 04-11-2014 End: 06-03-2014 *Hepatic Function Panel Ollie Hines Start: 04-11-2014 End: 06-03-2014 Lipid panel [AGGREGATE] Ollie Hines Start: 12-02-2013 End: 12-02-2013 Follow Up Appt 6 months Ollie Hines Start: 12-02-2013 End: 12-02-2013 MMOllie Rodriguez MD Start: 08-12-2013 End: 10-19-2013 *Hepatic Function Panel Ollie Hines Start: 08-12-2013 End: 10-19-2013 Lipid panel [AGGREGATE] Ollie Hines Start: 05-31-2013 End: 05-31-2013 DAISY Rodriguez MD Start: 05-31-2013 End: 05-31-2013 Follow Up Appt 6 months Ollie Hines Start: 11-22-2012 End: 11-22-2012 Follow Up Appt 6 months Osvaldo Gutierrez MD Start: 11-12-2012 End: 11-22-2012 *Hepatic Function Panel Osvaldo Gutierrez MD Start: 11-12-2012 End: 11-22-2012 Lipid panel [AGGREGATE] Osvaldo Gutierrez MD Start: 05-20-2012 End: 05-20-2012 Follow Up Appt 6 months Osvaldo Gutierrez MD Start: 12-17-2011 End: 05-19-2012 *Hepatic Function Panel Osvaldo Gutierrez MD Start: 12-17-2011 End: 05-19-2012 Lipid panel [AGGREGATE] Osvaldo Gutierrez MD Start: 09-18-2011 End: 09-18-2011 Follow Up Appt 6 months Osvaldo Gutierrez MD Start: 07-31-2004 History of coronary artery bypass grafting H/O coronary artery bypass surgery Dr. Shai Rodriguez MD Comment on above: CABG x 6: SHEIKH-LAD, Sequential SVG-D1 and D2, Sequential SVG- RPDA and RPLB, SVG-OM2 07/31/2004 Start: 10-12-1997 History of placement of stent for coronary artery disease History of coronary artery stent placement Comment on above: Stent-Distal RCA and POBA CX 10/1996, Stent -Distal RCA 05/1997, Stent-Prox and Mid LAD 03/1998 Plan of Treatment Date Care Activity Detail Author Start: 03-27-2030 Colonoscopy COLONOSCOPY [facility] Start: 03-27-2030 COLORECTAL CANCER SCREENING COLORECTAL CANCER SCREENING [facility] Start: 03-27-2030 Screening for malign ant neoplasm of colon [facility] Start: 04-10-2028 [facility] Start: 02-25-2028 Lipid 1996 panel - S ion or Plasma Lipid Screening [facility] Start: 02-25-2028 Lipid panel Lipid Screening [facility] Start: 02-05-2028 Urine microalbumin profile [facility] Start: 03-09-2027 Diabetes Screening Diabetes Screenin g [facility] Start: 02-28-2027 Diabetes Screening Diabetes Screenin g [facility] Start: 08-27-2026 Diabetes Screening Diabetes Screenin [facility] Start: 06-24-2026 LIPID SCREEN LIPID SCREEN [facility] Start: 04-10-2026 Annual PCP Team Marine Diesel Technician raúl Disease Visit Annual PCP Team Chronic Disease Visit [facility] Start: 04-10-2026 Hepatitis B surface antibody level LDL Cholesterol [facility] Start: 02-24-2026 Diabetes Screening Diabetes Screenin g [facility] Start: 10-24-2025 Annual PCP Team Marine Diesel Technician raúl Disease Visit Annual PCP Team Chronic Disease Visit [facility] Start: 10-07-2025 Annual PCP Team Marine Diesel Technician raúl Disease Visit Annual PCP Team Chronic Disease Visit [facility] Start: 09-26-2025 Annual PCP Team Marine Diesel Technician raúl Disease Visit Annual PCP Team Chronic Disease Visit [facility] Start: 09-07-2025 Annual PCP Team Marine Diesel Technician raúl Disease Visit Annual PCP Team Chronic Disease Visit [facility] Start: 07-11-2025 End: 07-11-2025 Patient encounter procedure 07/11/2025 10:40 AM EDT Office Visit [facility] [address] [place] [address], [place] [id number] Leandro Haines MD [address] [place] [id number] 3 month follow up [facility] Comment on above: 3 month follow up Start: 06-29-2025 Radionuclide imaging of perfusion of myocardium under exercise stress [facility] Start: 06-29-2025 [facility] Start: 06-12-2025 Influenza vaccination Influenza Vacc ine (#1) [facility] Start: 04-10-2025 End: 07-10-2025 Bacteria identified in Urine by Culture [facility] Comment on above: Expected: 04/10/2025 , Expires: 07/10/2025 Start: 04-10-2025 End: 07-10-2025 Cobalamin (Vitamin B12) [Mass/volume] in Serum or Plasma [facility] Comment on above: Expected: 04/10/2025 , Expires: 07/10/2025 Start: 04-10-2025 End: 07-10-2025 Comprehensive metabolic 2000 panel - Serum or Plasma [facility] Work Phone: Comment on above: Expected: 04/10/2025 , Expires: 07/10/2025 Start: 04-10-2025 End: 07-10-2025 LIPID PANEL, NONFASTING [facility] Comment on above: Expected: 04/10/2025 , Expires: 07/10/2025 Start: 03-07-2025 End: 03-07-2025 Patient encounter procedure 03/07/2025 12:40 PM EDT Office [facility] [address] [place] [address] Leandro Haines MD [address] [place] [address] 6 month follow up [facility] Comment on above: 6 month follow up Start: 02-28-2025 Hepatitis B surface antibody level LDL Cholesterol [facility] Start: 02-28-2025 End: 02-28-2025 Patient encounter procedure 02/28/2025 10:40 AM EDT Office Visit [facility] [address] [place] [address] Leandro Hianes MD [address] [place] [address] 6 month follow up [facility] Comment on above: 6 month follow up Start: 02-24-2025 Annual PCP Team Marine Diesel Technician raúl Disease Visit Annual PCP Team Chronic Disease Visit [facility] Start: 02-01-2025 Annual PCP Team Marine Diesel Technician raúl Disease Visit Annual PCP Team Chronic Disease Visit [facility] Start: 01-20-2025 Covid-19 Vaccine ( season) Covid-19 Vaccine () [facility] Start: 11-17-2024 Annual PCP Team Marine Diesel Technician raúl Disease Visit Annual PCP Team Chronic Disease Visit [facility] Start: 10-12-2024 Advance Directive Discussion Advance Directive Discussion [facility] Start: 10-12-2024 Medicare Advantage Annual Wellness Visit Medicare Advantage Annual Wellness Visit [facility] Start: 10-08-2024 [facility] Start: 09-28-2024 Annual PCP Team Marine Diesel Technician raúl Disease Visit Annual PCP Team Chronic Disease Visit [facility] Start: 09-07-2024 End: 12-07-2024 Thyrotropin [Units/volume] in Serum or Plasma THYROID STIMULATING HORMONE Lab Routine Palpitations Expected: 09/07/2024, Expires: 12/07/2024 [facility] Comment on above: Expected: 09/07/2024 , Expires: 12/07/2024 Start: 08-29-2024 End: 08-29-2024 Patient encounter procedure 08/29/2024 11:00 AM EST Office Visit [facility] [address] [place] [address] PodlogarAnita APRN.THERMITE WELDER [address] [place] [address] 6 month follow up [facility] Comment on above: 6 month follow up Start: 08-27-2024 Annual PCP Team Marine Diesel Technician raúl Disease Visit Annual PCP Team Chronic Disease Visit [facility] Start: 08-12-2024 Annual PCP Team Marine Diesel Technician raúl Disease Visit Annual PCP Team Chronic Disease Visit [facility] Start: 06-24-2024 DIABETES SCREEN DIABETES SCREEN [facility] Start: 06-12-2024 Influenza vaccination Influenza Vacc ine (#1) [facility] Start: 03-09-2024 End: 06-08-2024 Hemoglobin A1c in Blood [facility] Work Phone: Comment on above: Expected: 03/09/2024 , Expires: 06/08/2024 Start: 02-29-2024 End: 02-29-2024 ambulatory 02/29/2024 9:15 AM EDT Results Only [facility] [address] [place] [address] [facility] Start: 02-25-2024 Annual PCP Team Marine Diesel Technician raúl Disease Visit Annual PCP Team Chronic Disease Visit [facility] Start: 02-25-2024 End: 05-26-2024 CBC W Auto Differential panel - Blood COMPLETE BLOOD COUNT AND DIFFERENTIAL Lab Routine Medicare annual wellness visit, subsequent Expected: 02/25/2024, Expires: 05/26/2024 [facility] Work Phone: Comment on above: Expected: 02/25/2024 , Expires: 05/26/2024 Start: 02-25-2024 End: 05-26-2024 Comprehensive metabolic 2000 panel - Serum or Plasma COMPREHENSIVE METABOLIC PANEL Lab Routine Medicare annual wellness visit, subsequent Expected: 02/25/2024, Expires: 05/26/2024 [facility] Comment on above: Expected: 02/25/2024 , Expires: 05/26/2024 Start: 02-25-2024 Hepatitis B surface antibody level LDL Cholesterol [facility] Start: 02-25-2024 End: 05-26-2024 Lipid 1996 panel - Serum or Plasma LIPID PANEL BASIC Lab Routine Medicare annual wellness visit, subsequent Expected: 02/25/2024, Expires: 05/26/2024 [facility] Comment on above: Expected: 02/25/2024 , Expires: 05/26/2024 Start: 02-25-2024 End: 02-25-2024 Patient encounter procedure 02/25/2024 1:20 PM EDT Office Visit [facility] [address] [place] [id number] Leandro Haines MD [address] [place] [id number] medicare wellness [facility] Comment on above: medicare wellness Start: 10-12-2023 Advance Directive Discussion Advance Directive Discussion [facility] Start: 07-16-2023 ANNUAL PCP TEAM BONE CHAR OPERATOR RAÚL DISEASE VISIT ANNUAL PCP TEAM CHRONIC DISEASE VISIT [facility] Start: 06-12-2023 Influenza vaccination Influenza Vacc ine (#1) [facility] Start: 01-22-2023 ANNUAL PCP TEAM BONE CHAR OPERATOR RAÚL DISEASE VISIT ANNUAL PCP TEAM CHRONIC DISEASE VISIT [facility] Start: 10-12-2022 ADVANCE DIRECTIVE DISCUSSION ADVANCE DIRECTIVE DISCUSSION [facility] Start: 10-12-2022 DEPRESSION ASSESSMENT DEPRESSION ASS ESSMENT [facility] Start: 06-24-2022 Hepatitis B surface antibody level LDL CHOLESTEROL [facility] Start: 06-22-2022 Adult depression screening assessment DEPRESSION SCREENING [facility] Start: 10-12-2021 ADVANCE DIRECTIVE DISCUSSION ADVANCE DIRECTIVE DISCUSSION [facility] Start: 10-12-2021 DEPRESSION ASSESSMENT DEPRESSION ASS ESSMENT [facility] Start: 03-02-2018 End: 03-02-2018 Appointment Appointment [facility] Work Phone: Start: 11-23-2017 End: 05-22-2017 *Hepatic Function Panel *Hepatic Function Panel [facility] Work Phone: Start: 11-23-2017 End: 05-22-2017 Lipid panel [AGGREGATE] *Lipid Profile CC PCP [facility] Work Phone: Start: 05-22-2017 End: 05-22-2017 Appointment Appointment [facility] Work Phone: Start: 05-22-2017 End: 05-22-2017 DIRECTOR SYSTEMS DIRECTOR SYSTEMS [facility] Work Phone: Start: 05-22-2017 End: 05-22-2017 Follow Up Appt 9 months Follow Up Appt 9 months [facility] Work Phone: Start: 05-18-2017 End: 05-22-2017 *Hepatic Function Panel *Hepatic Function Panel [facility] Work Phone: Start: 05-18-2017 End: 05-22-2017 Lipid panel [AGGREGATE] *Lipid Profile CC PCP [facility] Work Phone: Start: 11-20-2016 End: 11-20-2016 Follow Up Appt 6 months Follow Up Appt 6 months [facility] Work Phone: Start: 11-20-2016 End: 11-20-2016 MMM MMM [facility] Work Phone: Start: 08-13-2016 End: 11-18-2016 *Hepatic Function Panel *Hepatic Function Panel [facility] Work Phone: Start: 08-13-2016 End: 11-18-2016 Lipid panel [AGGREGATE] *Lipid Profile CC PCP [facility] Work Phone: Start: 05-20-2016 End: 05-20-2016 DIRECTOR SYSTEMS DIRECTOR SYSTEMS [facility] Work Phone: Start: 05-20-2016 End: 05-20-2016 Electrocardiogram, complete EKG (In office) [facility] Work Phone: Start: 05-20-2016 End: 05-20-2016 Follow Up Appt 6 months Follow Up Appt 6 months [facility] Work Phone: Start: 02-10-2016 End: 02-13-2016 Lipid panel [AGGREGATE] *Lipid Profile CC PCP [facility] Work Phone: Start: 11-08-2015 End: 11-08-2015 Follow Up Appt 6 months Follow Up Appt 6 months [facility] Work Phone: Start: 11-08-2015 End: 11-08-2015 MMM MMM [facility] Work Phone: Start: 10-24-2015 End: 11-06-2015 *Hepatic Function Panel *Hepatic Function Panel [facility] Work Phone: Start: 10-24-2015 End: 11-06-2015 Lipid panel [AGGREGATE] *Lipid Profile CC PCP [facility] Work Phone: Start: 05-12-2015 End: 11-17-2014 *Hepatic Function Panel *Hepatic Function Panel [facility] Work Phone: Start: 05-12-2015 End: 11-17-2014 Lipid panel [AGGREGATE] *Lipid Profile CC PCP [facility] Work Phone: Start: 05-03-2015 End: 06-05-2015 *BMP *BMP [facility] Work Phone: Start: 05-03-2015 End: 05-03-2015 DIRECTOR SYSTEMS DIRECTOR SYSTEMS [facility] Work Phone: Start: 05-03-2015 End: 05-03-2015 Follow Up Appt 6 months Follow Up Appt 6 months [facility] Work Phone: Start: 05-03-2015 End: 06-05-2015 Magnesium *Magnesium [facility] Work Phone: Start: 11-23-2014 End: 11-23-2014 Follow Up Appt 6 months Follow Up Appt 6 months [facility] Work Phone: Start: 11-23-2014 End: 11-23-2014 MMM MMM [facility] Work Phone: Start: 08-23-2014 End: 11-23-2014 Follow Up Appt Other Follow Up Appt Other [facility] Work Phone: Start: 08-22-2014 End: 08-22-2014 *BMP *BMP [facility] Work Phone: Start: 08-22-2014 End: 08-22-2014 *CBC with Differential *CBC with Differential [facility] Work Phone: Start: 08-22-2014 End: 08-22-2014 Troponin I *TROP - Troponin I [facility] Work Phone: Start: 05-31-2014 End: 05-31-2014 DIRECTOR SYSTEMS DIRECTOR SYSTEMS [facility] Work Phone: Start: 05-31-2014 End: 05-31-2014 Follow Up Appt 6 months Follow Up Appt 6 months [facility] Work Phone: Start: 05-31-2014 End: 05-31-2014 Follow Up Appt Other Follow Up Appt Other [facility] Work Phone: Start: 05-31-2014 End: 06-03-2014 Nuclear stress test -exercise Nuclear stress test -exercise [facility] Work Phone: Start: 04-11-2014 End: 06-03-2014 *Hepatic Function Panel *Hepatic Function Panel [facility] Work Phone: Start: 04-11-2014 End: 06-03-2014 Lipid panel [AGGREGATE] *Lipid Profile CC PCP [facility] Work Phone: Start: 12-02-2013 End: 12-02-2013 Follow Up Appt 6 months Follow Up Appt 6 months [facility] Work Phone: Start: 12-02-2013 End: 12-02-2013 MMM MMM [facility] Work Phone: Start: 08-12-2013 End: 10-19-2013 *Hepatic Function Panel *Hepatic Function Panel [facility] Work Phone: Start: 08-12-2013 End: 10-19-2013 Lipid panel [AGGREGATE] *Lipid Profile [facility] Work Phone: Start: 05-31-2013 End: 05-31-2013 DIRECTOR SYSTEMS DIRECTOR SYSTEMS [facility] Work Phone: Start: 05-31-2013 End: 05-31-2013 Follow Up Appt 6 months Follow Up Appt 6 months [facility] [employer] Phone: Start: 11-22-2012 End: 11-22-2012 Follow Up Appt 6 months Follow Up Appt 6 months [facility] [employer] Phone: Start: 11-12-2012 End: 11-22-2012 *Hepatic Function Panel *Hepatic Function Panel [facility] [employer] Work Phone: Start: 11-12-2012 End: 11-22-2012 Lipid panel [AGGREGATE] *Lipid Profile [facility] Work Phone: Start: 05-20-2012 End: 05-20-2012 Follow Up Appt 6 months Follow Up Appt 6 months [facility] [employer] Phone: Start: 12-17-2011 End: 05-19-2012 *Hepatic Function Panel *Hepatic Function Panel [facility] [employer] Phone: Start: 12-17-2011 End: 05-19-2012 Lipid panel [AGGREGATE] *Lipid Profile [facility] Work Phone: Start: 09-18-2011 End: 09-18-2011 Follow Up Appt 6 months Follow Up Appt 6 months [facility] [employer] Phone: Start: 2007 RSV Vaccine (1 - 1-d ose 60+ series) RSV Vaccine (1 - 1-dose 60+ series) [facility] Start: 12-14-1992 COLOGUARD (FIT-DNA) COLOGUARD (FIT-D NA) [facility] Start: 12-14-[address] COLONOGRAPHY [facility] Start: 12-14-1992 FECAL OCCULT BLOOD FECAL OCCULT BLOO D [facility] Start: 12-14-1992 Screening for malign ant neoplasm of colon [facility] Start: 12-14-1992 SIGMOIDOSCOPY SIGMOIDOSCOPY [facility] Start: 12-14-1965 Anxiety Screening Anxiety Screening [facility] Start: 12-14-1965 Depression Screening Depression Scre ening [facility] Destruction premalig nant lesion 1st DESTRUCTION, 1ST LESION Procedures Routine Actinic keratosis S/P cryotherapy of skin lesion Ordered: 11/17/2023 [facility] Work Phone: Comment on above: Ordered: 11/17/2023 ECG COMPLETE ECG COMPLETE ECG Routine Palpitations Ordered: 09/07/2024 [facility] Work Phone: Comment on above: Ordered: 09/07/2024 Patient Education [facility] Work Phone: Patient referral [facility] Work Phone: Removal impacted cer umen irrigation/lvg unilat AMBULATORY EAR LAVAGE/IRRIGATION Procedures Routine Bilateral impacted cerumen Ordered: 07/16/2022 [facility] Work Phone: Comment on above: Ordered: 07/16/2022 [facility] End: 09-10-2024 XR KNEE GENERAL 4V AP BOTH/PA BOTH/LAT/MERC LEFT XR KNEE GENERAL 4V AP BOTH/PA BOTH/LAT/MERC LEFT Radiology Routine Acute pain of left knee 1 Occurrences starting 08/12/2023 until 09/10/2024 [facility] Work Phone: Comment on above: 1 Occurrences starti ng 08/12/2023 until 09/10/2024 XR KNEE GENERAL 4V A P BOTH/PA BOTH/LAT/MERC LEFT XR KNEE GENERAL 4V AP BOTH/PA BOTH/LAT/MERC LEFT Radiology Routine Acute pain of left knee 08/12/2023 10:02 AM EDT [facility] Work Phone: [facility] Immunizations Immunization Date Immunization Notes Care Provider [facility] 07-22-2024 COVID-19 vaccine, ag e 12+ yr ([facility] Immunization [place] Work Phone: [facility] 07-22-2024 influenza, high dose seasonal, preservative-free Immunization [place] Work Phone: [facility] 07-22-2024 influenza virus vaccine, unspecified formulation Leandro Haines MD Work Phone: [facility] 02-25-2024 COVID-19 vaccine, ag e 12+ yr, season (PFIZER-BIONTECH) Leandro Haines MD Work Phone: [facility] 07-21-2023 respiratory syncytia l virus (RSV) vaccine, adjuvanted (AREXVY) Leandro Haines MD Work Phone: [facility] Work Phone: 07-14-2023 COVID-19 vaccine, ag e 12+ yr, season (PFIZER-BIONTECH) [facility] Work Phone: [facility] Work Phone: 07-14-2023 influenza (HD-IIV4) vaccine, age 65+ yr, high dose, quadrivalent, PF (FLUZONE HIGH-DOSE) [facility] Work Phone: [facility] Work Phone: 07-14-2023 influenza virus vaccine, unspecified formulation Xr [place] Work Phone: [facility] 02-24-2023 COVID-19 vaccine, ag e 12+ yr, bivalent (PFIZER-BIONTECH) Leandro Haines MD Work Phone: [facility] 07-16-2022 influenza, high-dose , quadrivalent vaccine (FLUZONE HIGH DOSE QUADRIVALENT) [facility] Work Phone: [facility] Work Phone: 07-16-2022 influenza virus vaccine, unspecified formulation Leandro Haines MD Work Phone: [facility] 01-23-2022 COVID-19 original vaccine, age 12+ yr, monovalent (PFIZER-BIONTECH - MCINTYRE TOP) Leandro Haines MD Work Phone: [facility] Work Phone: 07-12-2021 COVID-19 original vaccine, age 12+ yr, monovalent (PFIZER-BIONTECH - PURPLE TOP) Leandro Haines MD Work Phone: [facility] Work Phone: 06-27-2021 influenza, high-dose , quadrivalent vaccine (FLUZONE HIGH DOSE QUADRIVALENT) Leandro Haines MD Work Phone: [facility] 2020 COVID-19 original vaccine, age 12+ yr, monovalent (PFIZER-BIONTECH - PURPLE TOP) Leandro Haines MD Work Phone: [facility] Work Phone: 11-23-2020 COVID-19 original vaccine, age 12+ yr, monovalent (PFIZER-BIONTECH - PURPLE TOP) Leandro Haines MD Work Phone: [facility] Work Phone: 07-14-2020 influenza, high-dose , quadrivalent vaccine (FLUZONE HIGH DOSE QUADRIVALENT) Leandro Haines MD Work Phone: [facility] 02-15-2020 zoster vaccine recombinant Leandro Haines MD Work Phone: [facility] 11-22-2019 zoster vaccine recombinant Leandro Haines MD Work Phone: [facility] 06-29-2019 influenza, high dose seasonal, preservative-free Leandro Haines MD Work Phone: [facility] 07-24-2018 influenza, high dose roderick, preservative-free Leandro Haines MD Work Phone: [facility] 02-04-2018 tetanus toxoid, redu dino diphtheria toxoid, and acellular pertussis vaccine, adsorbed Leandro Haines MD Work Phone: [facility] 08-05-2017 influenza, high dose roderick, preservative-free Leandro Haines MD Work Phone: [facility] Work Phone: 08-08-2016 influenza, high dose seasonal, preservative-free Leandro Haines MD Work Phone: [facility] Work Phone: 07-30-2015 influenza, seasonal, injectable Leandro Haines MD Work Phone: [facility] Work Phone: 02-12-2015 pneumococcal conjuga te vaccine, 13 valent Leandro Haines MD Work Phone: [facility] 01-31-2013 pneumococcal polysaccharide vaccine, 23 valent Leandro Haines MD Work Phone: [facility] 03-22-2012 zoster vaccine, live Roosevelt Haines MD Work Phone: [facility] 11-20-2009 tetanus toxoid, redu dino diphtheria toxoid, and acellular pertussis vaccine, adsorbed Leandro Haines MD Work Phone: [facility] Work Phone: 08-15-2009 novel [id number], preservative-free, injectable Leandro Haines MD Work Phone: [facility] Work Phone: Payers Date Payer Category Payer Medicare (Managed Care) MMO [employer] HMO [id number] 2024 Self-pay [id number] 2024 Medicare [id number] 2021 Medicare HUMANA MEDICARE HU[employer]NA GOLD PLUS [id number] 2021-Present [phone] [address] [address] [place] [address] [facility] [id number] 2021 Medicare [id number] 2015 Medicare [id number] Unknown Unknown [id number] Unknown [id number] Unknown [id number] Unknown [id number] Unknown [id number] Social History Date Type Detail Facility Start: 03-01-2021 End: 04-18-2022 Tobacco smoking status ARIS Unknown if ever smoked [facility] Work Phone: Start: 10-18-2019 None [facility] Start: 10-18-2019 Spouse/ Significant Other [facility] Start: 1945 Sex Assigned At Male [facility] Start: 08-11-2016 End: 10-08-2024 Tobacco smoking status NHIS Never smoked tobacco [facility] Start: 12-25-2021 End: 04-10-2025 Alcohol intake Current drinker of alcohol (finding) [facility] Start: 12-25-2021 End: 02-19-2023 Alcohol intake [facility] Start: 01-20-2022 History SDOH Alcohol Frequency 2 [facility] Start: 01-20-2022 History SDOH Alcohol Std Drinks 1 [facility] Start: 01-20-2022 History SDOH Social Connections Phone 5 [facility] Start: 01-20-2022 History SDOH Social Connections Get Together 4 [facility] Start: 01-20-2022 History SDOH Social Connections Anglican 3 [facility] Start: 10-29-2020 Education 18 [facility] Start: 03-30-2022 End: 04-09-2022 Exposure to SARS-CoV-2 (event) Not sure [facility] Work Phone: Start: 08-11-2016 End: 02-24-2023 Tobacco use and exposure Smokeless tobacco non-user [facility] Work Phone: Start: 02-19-2023 End: 02-24-2024 Social connection and isolation panel [facility] Frequency of Communication with Friends and Family Not on file [facility] Do you belong to any clubs or organizations such as nondenominational groups, unions, [employer] or athletic groups, or school groups? Yes [facility] Are you now , , , , never or living with a partner? [facility] How often to you hav e a drink containing alcohol? Monthly or less [facility] How many standard dr inks containing alcohol do you have on a typical day? 1 or 2 [facility] How often do you hav e 6 or more drinks on 1 occasion? Never [facility] Do you feel stress - tense, restless, nervous, or anxious, or unable to sleep at night because your mind is troubled all the time - these days [OSQ] Only a little [facility] (I/We) worried wheadithya er (my/our) food would run out before (I/we) got money to buy more. Never true [facility] In the past 12 month s, was there a time when you were not able to pay the mortgage or rent on time? No [facility] Start: 10-27-2020 Gender identity Identifies as male gender (finding) [facility] Start: 03-14-2020 Sexual orientation Heterosexual (finding) [facility] Do you feel stress - tense, restless, nervous, or anxious, or unable to sleep at night because your mind is troubled all the time - these days [OSQ] Not at all [facility] Start: 12-21-2024 Sex Male (finding) [facility] Functional Status Date Assessment Result Facility 02-21-2015 Are you deaf, or do you have serious difficulty hearing No 02/21/2015 2:39 PM EDT Leila Cabrera LPN No [facility] 02-21-2015 Are you blind, or do you have serious difficulty seeing, even when wearing glasses No 02/21/2015 2:39 PM SONIAT Leila Cabrera LPN No [facility] 02-21-2015 Do you have serious difficulty walking or climbing stairs No 02/21/2015 2:39 PM Leila Pretty LPN No [facility] 02-21-2015 Do you have difficul ty dressing or bathing No 02/21/2015 2:39 PM Leila Pretty LPN No [facility] 02-21-2015 Because of a physica l, mental, or emotional condition, do you have difficulty doing errands alone such as visiting a physician's office or shopping No 02/21/2015 2:39 PM Leila Pretty LPN No [facility] Mental Status Date Assessment Result Facility 10-08-2024 Cognitive function Voice/Name [facility] Work Phone: 02-21-2015 Because of a physica l, mental, or emotional condition, do you have serious difficulty concentrating, remembering, or making decisions No 02/21/2015 2:39 PM Leila Pretty LPN No [facility] Clinical Notes 07-31-2004 to 07-26-2025 Note Date & Type Note Facility 07-26-2025 Note HNO ID: [id number] Author: HANNAH ARANDA MD Service: ? Author Type: Physician Type: Progress Notes Filed: 07/26/2025 17:29 Note Text: [facility] Initial Consult Marisabel Reynoso is a 79 year old year old male who comes for Comprehensive Geriatric Assessment. Pt accompanied by: melva Caregivers involved in care: melva HPI: Ronak is a 79-year-old male, with a history of sleep apnea, presenting with concerns about memory. Ronak reports a decline in short-term memory over the past year, with increasing difficulty remembering recent events and tasks. He often forgets the day of the week, especially on weekends, and has been confused about scheduled activities. He also reports difficulty with his current calendar system, which he plans to change for better clarity. He denies any family history of dementia. He reports no issues with long-term memory, recalling events from his childhood, previous employment, and wedding anniversary without difficulty. He denies feelings of depression, anxiety, or apathy, and continues to enjoy activities and social engagements. He denies hallucinations or delusions. He uses a CPAP machine for sleep apnea, averaging about 8 hours of sleep per night, and generally feels well-rested upon waking. He denies any issues with sleep, including restless legs or difficulty staying asleep. He denies urinary incontinence, but reports hard stools, for which he has not yet increased his water intake. He denies any issues with chewing or swallowing, and reports a recent onset of mild tremor in his left hand over the past 2-3 weeks. He has experienced several falls in the past year, including a fall down the stairs and a stumble at a baseball game. He has been attending a course designed to help elderly individuals avoid falls and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 evaluation. Surgical Procedure: Right cataract Date of Procedure: 11/16/2024 Surgeon: Dr. Giovanni SILVA date: none Diabetes No Hypertension requiring medication No Congestive Heart Failure Yes Current Smoker within 1 Year No COPD/asthma No HOSSEIN Yes Dialysis No Acute renal failure No Steroid use for chronic condition No Disseminated cancer No Patient's with estimated risk of 1 percent or higher may need additional cardiac testing unless METS > or = to 4 METS: Walk indoors, such as around the house (1.75 METs): YES Do light work around the house, such as dusting or washing dishes (2.70 METs): YES Take care of self; that is eating, dressing, bathing, using the toilet (2.75 METs): YES Walk a block or two on level ground (2.75 METs): YES Do moderate work around the house such as vacuuming, sweeping floors, or carrying in groceries (3.50 METs): YES Do yardwork, such as raking leaves, weeding,or pushing a power mower (4.50 METs): YES Climb a flight of stairs or walk up a hill (5.50 METs): YES Participate in moderate recreational activities, such as golf, bowling, dancing, doubles tennis, orthrowing a baseball or football (6.00 METs): YES Participate in strenuous sport, such as swimming, singles tennis, football, basketball, or skiing (7.50 METs): YES Do heavy work around the house, such as scrubbing floors, lifting or moving heavy furniture (8.00 METs): YES Run a short distance (8.00 METs): YES Patient denies any chest pain or undue shortness of breath with the above physical activity. REVIEW OF SYSTEMS GENERAL: No weight loss, malaise or fevers RESPIRATORY: Negative for cough, hemoptysis, wheezing, COPD, dyspnea or shortness of breath CARDIOVASCULAR: Negative for chest pain, leg swelling, hypertension, CHF or palpitations PAST MEDICAL HISTORY Diagnosis Date Actinic keratosis CAD (coronary artery disease) Dr. Rodriguez CHF (congestive heart failure) ([facility]) EF 40% 04/2022 Chronic right shoulder pain Diverticulosis of colon (without mention of hemorrhage) Myocardial infarction (HCC) 07/31/2004 TPA, resolution w/o damage. Nasal polyp left side- seeing Dr. Hanson Obesity (BMI 30.0-34.9) Obstructive sleep apnea DME [facility] [place] [phone] Onychomycosis Other and unspecified hyperlipidemia Prediabetes Unspecified sleep apnea uses C-pap PAST SURGICAL HISTORY Procedure Laterality Date COLONOSCOPY FLX DX W/COLLJ SPEC WHEN PFRMD 11/16/09 COLONOSCOPY FLX DX W/COLLJ SPEC WHEN PFRMD 03/27/2020 Colonoscopy HEART SURGERY HX PAST SURGICAL HISTORY OF 07/31/2004 CABG x 6 [facility] PAST SURGICAL HISTORY OF 04/03/1998, Jah , Stent placements single,single,four PAST SURGICAL HISTORY OF 09/20/12 right achilles tendon surgery x 2 PAST SURGICAL HISTORY OF 12/01/12 left pinky finger SIGMOIDOSCOPY FLX DX W/COLLJ SPEC BR/WA IF PFRMD Sigmoidoscopy [facility] ALLERGIES Cats, Contrast Dye, Dogs, and Pollen MEDICATIONS CPAP/BIPAP/OTHER Type .CPAPSettings into a note to see current settings/supplies/DME information. ramipril (ALTACE) 5 mg capsule Take 1 capsule by mouth once daily. carvedilol (COREG) 6.25 mg tablet Take 1 tablet by mouth twice daily with meals. nitroglycerin sublingual (NITROQUICK) 0.4 mg SL tablet Dissolve 1 tablet under the tongue every 5 minutes as needed for chest pain. rosuvastatin (CRESTOR) 20 mg tablet Take 1 tablet by mouth once daily. vit A/vit C/vit E/zinc/copper (OCUVITE PRESERVISION ORAL) Take 1 tablet by mouth twice daily. fluticasone (FLONASE) 50 mcg/actuation nasal spray Use 2 Sprays in each nostril once daily. Rinse mouth after use. multivitamin tablet Take 1 tablet by mouth once daily. COMPOUNDED PRESCRIPTION CPAP mask of patient choice and supplies as needed. Dx 780.57 aspirin(ECOTRIN LOW STRENGTH 81 MG TAB) Take one(1) tablet daily. FAMILY HISTORY Problem Relation Age of Onset Stroke Mother suspected Asthma Father Heart Attack Brother Cancer Brother Social History Tobacco Use Smoking status: Never Smokeless tobacco: Never Vaping Use Vaping status: Never Used Substance Use Topics Alcohol use: Yes Alcohol/week: 1.0 standard drink of alcohol Types: 1 Cans of Beer (12oz) per week Drug use: No BP 102/74 Pulse 68 Resp 16 Wt 90 kg (198 lb 6.6 oz) SpO2 96% BMI 29.30 kg/m Physical Exam PHYSICAL EXAMINATION: General appearance: Well appearing, alert, in no acute distress, well-hydrated, well nourished. Skin: Skin color, texture, turgor normal, no suspicious rashes or lesions Head: Normocephalic, no masses, lesions, tenderness or abnormalities Neck: Supple, no adenopathy Lungs: Lungs clear to auscultation. No wheezing, rhonchi, rales. Heart: RRR without murmur, gallop, or rubs. No ectopy Abdomen: soft, nondistended, nontender Neuro: Awake, alert and oriented x 3 and No involuntary motions. ASSESSMENT/PLAN: 1. Preop examination - ICD9: V72.84, ICD10: Z01.818 CAD - Stable and medication(s) reviewed CHF - stable HOSSEIN - Patient is using CPAP/BIPAP [place] risk: Patient is scheduled for a low-risk procedure. Patient has 8.6% chance of complications which may include NH, PE, ventriclar fibrillation cardiac arrest of complete heart block using Levi's Simple Cardiac Risk Index Functional status: Independent The patient is cleared for surgery Anita Podlogjose, ELVIN.THERMITE WELDER Prescription instructions reviewed with patient as applicable. Patient advised if symptoms do not improve or if symptoms worsen sooner, to contact their primary care physician. Potential red flag symptoms discussed with the patient. Reviewed appropriate action plan to take if red flag symptoms occur. Patient agreeable to treatment plan. I spent a total of 30 minutes on the date of the service which included preparing to see the patient, [id number] patient care, completing clinical documentation, obtaining and/or reviewing separately obtained history, performing a medically appropriate examination, and counseling and educating the patient/family/caregiver. [facility] Instructions* Patient Instructions* Catrachita Waters APRN.CNP - 10/07/2024 10:49 AM EST Recommend using Ibuprofen 600-800 mg every 8 hours as needed for pain. Take with food. May use Flexeril as needed for muscle tension, may cause sleepiness. May apply heat, gentle stretching, and massage therapy as needed. (Massage Envy), May try lidocainepatch to tap muscle Message the office if pain does not improve, may get xray in the future. documented in this encounterWay[facility]12-27-2024 History of Present illness Narrative* Catrachita Waters APRN.CNP - 10/07/2024 10:40 AM EST This is a 78 year old male who presents today with: Patient presents with: Acute Visit: neck stiffness HISTORY OF PRESENT ILLNESS: Marisabel Reynoso is a 78 year old male. Patient presents with: Acute Visit: neck stiffness Patient of Dr. Haines here in the office for neck pain. Started earlier this month. Was evaluated by PCP team on 09/26/2024. Given Medrol Dosepak and Flexeril. Steroids were helpful for pain, but seemed to come back once finishing the medication. Pain is right side of neck and trapezius. Pain is throbbing which waxes and wanes. No numbness and tingling into the hands. PAST MEDICAL HISTORY: PAST MEDICAL HISTORY Diagnosis Date Actinic keratosis CAD (coronary artery disease) Dr. Rodriguez CHF (congestive heart failure) ([facility]) EF 40% 04/2022 Chronic right shoulder pain Diverticulosis of colon (without mention of hemorrhage) Myocardial infarction (HCC) 07/31/2004 TPA, resolution w/o damage. Nasal polyp left side- seeing Dr. Hanson Obesity (BMI 30.0-34.9) Obstructive sleep apnea [facility] [place] [phone] Onychomycosis Other and unspecified hyperlipidemia Prediabetes Unspecified sleep apnea uses C-pap PAST SURGICAL HISTORY Procedure Laterality Date COLONOSCOPY FLX DX W/COLLJ SPEC WHEN PFRMD 11/16/09 COLONOSCOPY FLX DX W/COLLJ SPEC WHEN PFRMD 03/27/2020 Colonoscopy HEART SURGERY HX PAST SURGICAL HISTORY OF 07/31/2004 CABG x 6 [facility] PAST SURGICAL HISTORY OF 04/03/1998, Jah , Stent placements single,single,four PAST SURGICAL HISTORY OF 09/20/12 right achilles tendon surgery x 2 PAST SURGICAL HISTORY OF 12/01/12 left pinky finger SIGMOIDOSCOPY FLX DX W/COLLJ SPEC BR/WA IF PFRMD Sigmoidoscopy [facility] ALLERGIES Cats, Contrast Dye, Dogs, and Pollen MEDICATIONS Current Outpatient Medications Medication Sig cyclobenzaprine (FLEXERIL) 5 mg tablet Take 1 tablet by mouth three times a day as needed. Ciclopirox (LOPROX) 0.77 % gel Apply to affected area two times a day. Patient to start once he recieves CPAP/BIPAP/OTHER Type .CPAPSettings into a note to see current settings/supplies/DME information. ramipril (ALTACE) 5 mg capsule Take 1 capsule by mouth once daily. carvedilol (COREG) 6.25 mg tablet Take 1 tablet by mouth twice daily with meals. nitroglycerin sublingual (NITROQUICK) 0.4 mg SL tablet Dissolve 1 tablet under the tongue every 5 minutes as needed for chest pain. rosuvastatin (CRESTOR) 20 mg tablet Take 1 tablet by mouth once daily. vit A/vit C/vit E/zinc/copper (OCUVITE PRESERVISION ORAL) Take 1 tablet by mouth twice daily. fluticasone (FLONASE) 50 mcg/actuation nasal spray Use 2 Sprays in each nostril once daily. Rinse mouth after use. multivitamin tablet Take 1 tablet by mouth once daily. COMPOUNDED PRESCRIPTION CPAP mask of patient choice and supplies as needed. Dx 780.57 aspirin(ECOTRIN LOW STRENGTH 81 MG TAB) Take one(1) tablet daily. No current facility-administered medications for this visit. FAMILY HISTORY Problem Relation Age of Onset Stroke Mother suspected Asthma Father Heart Attack Brother Cancer Brother Social History Tobacco Use Smoking status: Never Smokeless tobacco: Never Vaping Use Vaping status: Never Used Substance Use Topics Alcohol use: Yes Alcohol/week: 1.0 standard drink of alcohol Types: 1 Cans of Beer (12oz) per week Drug use: No REVIEW OF SYSTEMS GENERAL: No weight loss, malaise or fevers/chills HEENT: Negative for frequent or significant headaches, No changes in hearing or vision. NECK: Negative for lumps, goiter, pain and significant neck swelling RESPIRATORY: Negative for cough, hemoptysis, wheezing, dyspnea or shortness of breath CARDIOVASCULAR: Negative for chest pain, leg swelling, orthopnea, or palpitations GI: No nausea, vomiting, or diarrhea/constipation. No hematochezia/melena. No heartburn or reflux symptoms. : No history of dysuria, frequency or incontinence MUSCULOSKELETAL: + Neck Pain SKIN: Negative for lesions, rash, and itching ENDOCRINE: Negative for cold or heat intolerance, polyuria, polydipsia and goiter NEURO: No history of headaches, syncope, paralysis, seizures or tremors MOOD: Negative for depression, anxiety, or suicidal ideation. EXAM: BP 110/64 Pulse 88 Resp 16 Wt 91.6 kg (201 lb 15.1 oz) SpO2 97% BMI 29.82 kg/m PHYSICAL EXAM: General Appearance: Well appearing, alert, in no acute distress, well-hydrated, well nourished. Skin: Skin color, texture, turgor normal, no suspicious rashes or lesions. Head: Normocephalic, no masses, lesions, tenderness or abnormalities. Eyes: Anicteric sclera. Extraocular movements are intact. Extremities: No deformities, edema, skin discoloration, clubbing or cyanosis. Good capillary refill. Musculoskeletal: Reduced ROM of cervical spine, cervical spine nontender with palpation, moderate bilateral trapezius muscle tension noted. Peripheral Pulses: Normal, Capillary refill <2secs, strong peripheral pulses, Pulses palpable. Neurologic: Gait normal. Reflexes normal and symmetric. Sensation grossly intact. ASSESSMENT/PLAN: 1. Neck pain - ICD9: 723.1, ICD10: M54.2 (primary diagnosis) - Recommend using NSAID such as ibuprofen 600 to 800 mg every 8 hours as needed for pain. Instructed to take with food. - May continue with Flexeril as needed for muscle tension. - Continue supportive care at home, may apply heat to the area, gentle stretching, and massage therapy may be helpful. - No radiating symptoms, instructed that if pain does not improve we may consider a cervical spine x-ray in the future however I believe this to be more muscular in nature. - CYCLOBENZAPRINE 10 MG TABLET 2. Muscle tension pain - ICD9: 729.1, ICD10: M79.10 - Same plan as #1. Follow-up if no improvement. Discussed treatment plan and patient voices understanding. Patient's questions answered appropriately. Medications and potential side effects were discussed and patient voices understanding. Catrachita Waters APRN.LILY This note was partially generated using [employer] voice recognition system. Note was reviewed for accuracy. There may be minor misspellings or grammar miscues with [employer] voice recognition. documented in this encounterWay[facility]12-27-2024 NoteHNO ID: [id number] Author: CATRACHITA WATERS APRN.LILY Service: ? Author Type: Nurse Practitioner Type: Progress Notes Filed: 10/07/2024 12:09 Note Text: This is a 78 year old male who presents today with: Patient presents with: Acute Visit: neck stiffness HISTORY OF PRESENT ILLNESS: Marisabel Reynoso is a 78 year old male. Patient presents with: Acute Visit: neck stiffness Patient of Dr. Haines here in the office for neck pain. Started earlier this month. Was evaluated by PCP team on 09/26/2024. Given Medrol Dosepak and Flexeril. Steroids were helpful for pain, but seemed to come back once finishing the medication. Pain is right side of neck and trapezius. Pain is throbbing which waxes and wanes. No numbness and tingling into the hands. PAST MEDICAL HISTORY: PAST MEDICAL HISTORY Diagnosis Date Actinic keratosis CAD (coronary artery disease) Dr. Rodriguez CHF (congestive heart failure) ([facility]) EF 40% 04/2022 Chronic right shoulder pain Diverticulosis of colon (without mention of hemorrhage) Myocardial infarction ([facility]) 07/31/2004 TPA, resolution w/o damage. Nasal polyp left side- seeing Dr. Hanson Obesity (BMI 30.0-34.9) Obstructive sleep apnea [facility] [place] [phone] Onychomycosis Other and unspecified hyperlipidemia Prediabetes Unspecified sleep apnea uses C-pap PAST SURGICAL HISTORY Procedure Laterality Date COLONOSCOPY FLX DX W/COLLJ SPEC WHEN PFRMD 11/16/09 COLONOSCOPY FLX DX W/COLLJ SPEC WHEN PFRMD 03/27/2020 Colonoscopy HEART SURGERY HX PAST SURGICAL HISTORY OF 07/31/2004 CABG x 6 [facility] PAST SURGICAL HISTORY OF 04/03/1998, Jah , Stent placements single,single,four PAST SURGICAL HISTORY OF 09/20/12 right achilles tendon surgery x 2 PAST SURGICAL HISTORY OF 12/01/12 left pinky finger SIGMOIDOSCOPY FLX DX W/COLLJ SPEC BR/WA IF PFRMD Sigmoidoscopy [facility] ALLERGIES Cats, Contrast Dye, Dogs, and Pollen MEDICATIONS Current Outpatient Medications Medication Sig cyclobenzaprine (FLEXERIL) 5 mg tablet Take 1 tablet by mouth three times a day as needed. Ciclopirox (LOPROX) 0.77 % gel Apply to affected area two times a day. Patient to start once he recieves CPAP/BIPAP/OTHER Type .CPAPSettings into a note to see current settings/supplies/DME information. ramipril (ALTACE) 5 mg capsule Take 1 capsule by mouth once daily. carvedilol (COREG) 6.25 mg tablet Take 1 tablet by mouth twice daily with meals. nitroglycerin sublingual (NITROQUICK) 0.4 mg SL tablet Dissolve 1 tablet under the tongue every 5 minutes as needed for chest pain. rosuvastatin (CRESTOR) 20 mg tablet Take 1 tablet by mouth once daily. vit A/vit C/vit E/zinc/copper (OCUVITE PRESERVISION ORAL) Take 1 tablet by mouth twice daily. fluticasone (FLONASE) 50 mcg/actuation nasal spray Use 2 Sprays in each nostril once daily. Rinse mouth after use. multivitamin tablet Take 1 tablet by mouth once daily. COMPOUNDED PRESCRIPTION CPAP mask of patient choice and supplies as needed. Dx 780.57 aspirin(ECOTRIN LOW STRENGTH 81 MG TAB) Take one(1) tablet daily. No current facility-administered medications for this visit. FAMILY HISTORY Problem Relation Age of Onset Stroke Mother suspected Asthma Father Heart Attack Brother Cancer Brother Social History Tobacco Use Smoking status: Never Smokeless tobacco: Never Vaping Use Vaping status: Never Used Substance Use Topics Alcohol use: Yes Alcohol/week: 1.0 standard drink of alcohol Types: 1 Cans of Beer (12oz) per week Drug use: No REVIEW OF SYSTEMS GENERAL: No weight loss, malaise or fevers/chills HEENT: Negative for frequent or significant headaches, No changes in hearing or vision. NECK: Negative for lumps, goiter, pain and significant neck swelling RESPIRATORY: Negative for cough, hemoptysis, wheezing, dyspnea or shortness of breath CARDIOVASCULAR: Negative for chest pain, leg swelling, orthopnea, or palpitations GI: No nausea, vomiting, or diarrhea/constipation. No hematochezia/melena. No heartburn or reflux symptoms. : No history of dysuria, frequency or incontinence MUSCULOSKELETAL: + Neck Pain SKIN: Negative for lesions, rash, and itching ENDOCRINE: Negative for cold or heat intolerance, polyuria, polydipsia and goiter NEURO: No history of headaches, syncope, paralysis, seizures or tremors MOOD: Negative for depression, anxiety, or suicidal ideation. EXAM: BP 110/64 Pulse 88 Resp 16 Wt 91.6 kg (201 lb 15.1 oz) SpO2 97% BMI 29.82 kg/m? PHYSICAL EXAM: General Appearance: Well appearing, alert, in no acute distress, well-hydrated, well nourished. Skin: Skin color, texture, turgor normal, no suspicious rashes or lesions. Head: Normocephalic, no masses, lesions, tenderness or abnormalities. Eyes: Anicteric sclera. Extraocular movements are intact. Extremities: No deformities, edema, skin discoloration, clubbing or cyanosis. Good cap (more content not included)...[facility]12-16-2024 Instructions* Patient Instructions* Anita Stone APRN.CNP - 09/26/2024 1:23 PM EST You make acetaminophen products as directed on packaging Do not take NSAID products while taking Medrol May take muscle relaxer three times a day- do not drive or operate heavy machinery while taking as this medication may cause drowsiness documented in this encounterWay[facility]12-16-[facility]24 NoteHNO ID: [id number] Author: ANITA STONE APRN.THERMITE WELDER Service: ? Author Type: Nurse Practitioner Type: Progress Notes Filed: 09/26/2024 15:42 Note Text: 09/26/2024 Patient presents with: Neck Pain: X1 week; kept patient up last night. SUBJECTIVE: This is a 78 year old that is here today for Above Complaints. ONSET: one week LOCATION: right neck DURATION: intermittent CHARACTERISTICS: sharp AGGRAVATING FEATURES: turning head ALLEVIATING FEATURES: heat and topical RADIATION: shoulder and upper back Denies past injury/surgery, extremity numbness, tingling, weakness, saddle anasthesia, urinary/bowel incontinence or inability PAST MEDICAL HISTORY Diagnosis Date Actinic keratosis CAD (coronary artery disease) Dr. Rodriguez CHF (congestive heart failure) ([facility]) EF 40% 04/2022 Chronic right shoulder pain Diverticulosis of colon (without mention of hemorrhage) Myocardial infarction ([facility]) 07/31/2004 TPA, resolution w/o damage. Nasal polyp left side- seeing Dr. Hanson Obesity (BMI 30.0-34.9) Obstructive sleep apnea DME [facility] [place] [phone] Onychomycosis Other and unspecified hyperlipidemia Prediabetes Unspecified sleep apnea uses C-pap ALLERGIES Cats, Contrast Dye, Dogs, and Pollen MEDICATIONS Current Outpatient Medications Medication Sig Ciclopirox (LOPROX) 0.77 % gel Apply to affected area two times a day. Patient to start once he recieves CPAP/BIPAP/OTHER Type .CPAPSettings into a note to see current settings/supplies/DME information. ramipril (ALTACE) 5 mg capsule Take 1 capsule by mouth once daily. carvedilol (COREG) 6.25 mg tablet Take 1 tablet by mouth twice daily with meals. nitroglycerin sublingual (NITROQUICK) 0.4 mg SL tablet Dissolve 1 tablet under the tongue every 5 minutes as needed for chest pain. rosuvastatin (CRESTOR) 20 mg tablet Take 1 tablet by mouth once daily. vit A/vit C/vit E/zinc/copper (OCUVITE PRESERVISION ORAL) Take 1 tablet by mouth twice daily. fluticasone (FLONASE) 50 mcg/actuation nasal spray Use 2 Sprays in each nostril once daily. Rinse mouth after use. multivitamin tablet Take 1 tablet by mouth once daily. COMPOUNDED PRESCRIPTION CPAP mask of patient choice and supplies as needed. Dx 780.57 aspirin(ECOTRIN LOW STRENGTH 81 MG TAB) Take one(1) tablet daily. No current facility-administered medications for this visit. Medications and allergies reviewed by this provider. SOCIAL HISTORY Social History Tobacco Use Smoking status: Never Smokeless tobacco: Never Vaping Use Vaping status: Never Used Substance Use Topics Alcohol use: Yes Alcohol/week: 1.0 standard drink of alcohol Types: 1 Cans of Beer (12oz) per week Drug use: No REVIEW OF SYSTEMS All other reviewed and negative other than HPI. OBJECTIVE: BP 118/62 Pulse (!) 59 Resp 16 Wt 90.3 kg (199 lb 1.2 oz) SpO2 98% BMI 29.40 kg/m? . Vital signs reviewed by this provider. APPEARANCE Well appearing, alert, in no acute distress, well-hydrated, well nourished. NECK Supple, no adenopathy. TTP right posterior neck. No obvious deformity, erythema or swelling. Some discomfort with rotation to the right and extension. Negative Spurling EXTREMITIES Extremities normal, No deformities, No skin discoloration, and No edema NEURO Reflexes symmetrical, Normal gait, No involuntary motions., and negative findings: muscle tone normal, muscle strength normal SKIN Skin color, texture, turgor normal, no suspicious rashes or lesions to exposed skin RIGHT SHOULDER: No obvious deformity, erythema, excessive warmth or swelling. FROM without pain or difficulty Depression Screening Never done Anxiety Screening Never done LDL Cholesterol due on 02/28/2025 Annual PCP Team Chronic Disease Visit due on 09/26/2025 Diabetes Screening due on 03/09/2027 DTaP,Tdap,Td Vaccine(3 - Td or Tdap) due on 02/05/2028 Influenza Vaccine Completed Advance Directive Discussion Completed RSV Vaccine Completed Hepatitis C Screening Completed Shingrix Vaccine Completed Covid-19 Vaccine Completed Pneumococcal Vaccine: 50+ Completed Colorectal Cancer Screening Discontinued ASSESSMENT/PLAN: 1. Neck pain - ICD9: 723.1, ICD10: M54.2 - likely muscular - no red flag symptoms or exam findings - red flag symptoms discussed, verbalizes understanding - may use OTC acetaminophen products as directed on packaging - CYCLOBENZAPRINE 5 MG TABLET- discussed with patient medication can cause drowsiness so should not drive or operate heavy machinery while taking, verbalizes understanding - METHYLPREDNISOLONE 4 MG TABLETS IN A DOSE PACK- disussed with patient he should not take NSAID prooducts whilte taking, verbalizes understanding - follow-up if fails to improve to ER with red flag symptoms Anita PodlogELVIN garcia.THERMITE WELDER Prescription instructions reviewed with patient as applicable. Patient advised if symptoms do not improve or if symptoms wo (more content not included)... [facility]12-16-2024 History of Present illness Narrative* RossylogarAnita APRN.LILY - 09/26/2024 1:12 PM EST 09/26/2024 Patient presents with: Neck Pain: X1 week; kept patient up last night. SUBJECTIVE: This is a 78 year old that is here today for Above Complaints. ONSET: one week LOCATION: right neck DURATION: intermittent CHARACTERISTICS: sharp AGGRAVATING FEATURES: turning head ALLEVIATING FEATURES: heat and topical RADIATION: shoulder and upper back Denies past injury/surgery, extremity numbness, tingling, weakness, saddle anasthesia, urinary/bowel incontinence or inability PAST MEDICAL HISTORY Diagnosis Date Actinic keratosis CAD (coronary artery disease) Dr. Rodriguez CHF (congestive heart failure) ([facility]) EF 40% 04/2022 Chronic right shoulder pain Diverticulosis of colon (without mention of hemorrhage) Myocardial infarction ([facility]) 07/31/2004 TPA, resolution w/o damage. Nasal polyp left side- seeing Dr. Hanson Obesity (BMI 30.0-34.9) Obstructive sleep apnea DME [facility] [place] [phone] Onychomycosis Other and unspecified hyperlipidemia Prediabetes Unspecified sleep apnea uses C-pap ALLERGIES Cats, Contrast Dye, Dogs, and Pollen MEDICATIONS Current Outpatient Medications Medication Sig Ciclopirox (LOPROX) 0.77 % gel Apply to affected area two times a day. Patient to start once he recieves CPAP/BIPAP/OTHER Type .CPAPSettings into a note to see current settings/supplies/DME information. ramipril (ALTACE) 5 mg capsule Take 1 capsule by mouth once daily. carvedilol (COREG) 6.25 mg tablet Take 1 tablet by mouth twice daily with meals. nitroglycerin sublingual (NITROQUICK) 0.4 mg SL tablet Dissolve 1 tablet under the tongue every 5 minutes as needed for chest pain. rosuvastatin (CRESTOR) 20 mg tablet Take 1 tablet by mouth once daily. vit A/vit C/vit E/zinc/copper (OCUVITE PRESERVISION ORAL) Take 1 tablet by mouth twice daily. fluticasone (FLONASE) 50 mcg/actuation nasal spray Use 2 Sprays in each nostril once daily. Rinse mouth after use. multivitamin tablet Take 1 tablet by mouth once daily. COMPOUNDED PRESCRIPTION CPAP mask of patient choice and supplies as needed. Dx 780.57 aspirin(ECOTRIN LOW STRENGTH 81 MG TAB) Take one(1) tablet daily. No current facility-administered medications for this visit. Medications and allergies reviewed by this provider. SOCIAL HISTORY Social History Tobacco Use Smoking status: Never Smokeless tobacco: Never Vaping Use Vaping status: Never Used Substance Use Topics Alcohol use: Yes Alcohol/week: 1.0 standard drink of alcohol Types: 1 Cans of Beer (12oz) per week Drug use: No REVIEW OF SYSTEMS All other reviewed and negative other than HPI. OBJECTIVE: BP 118/62 Pulse (!) 59 Resp 16 Wt 90.3 kg (199 lb 1.2 oz) SpO2 98% BMI 29.40 kg/m . Vitalsigns reviewed by this provider. APPEARANCE Well appearing, alert, in no acute distress, well-hydrated, well nourished. NECK Supple, no adenopathy. TTP right posterior neck. No obvious deformity, erythema or swelling. Some discomfort with rotation to the right and extension. Negative Spurling EXTREMITIES Extremities normal, No deformities, No skin discoloration, and No edema NEURO Reflexes symmetrical, Normal gait, No involuntary motions., and negative findings: muscle tone normal, muscle strength normal SKIN Skin color, texture, turgor normal, no suspicious rashes or lesions to exposed skin RIGHT SHOULDER: No obvious deformity, erythema, excessive warmth or swelling. FROM without pain or difficulty Depression Screening Never done Anxiety Screening Never done LDL Cholesterol due on 02/28/2025 Annual PCP Team Chronic Disease Visit due on 09/26/2025 Diabetes Screening due on 03/09/2027 DTaP,Tdap,Td Vaccine(3 - Td or Tdap) due on 02/05/2028 Influenza Vaccine Completed Advance Directive Discussion Completed RSV Vaccine Completed Hepatitis C Screening Completed Shingrix Vaccine Completed Covid-19 Vaccine Completed Pneumococcal Vaccine: 50+ Completed Colorectal Cancer Screening Discontinued ASSESSMENT/PLAN: 1. Neck pain - ICD9: 723.1, ICD10: M54.2 - likely muscular - no red flag symptoms or exam findings - red flag symptoms discussed, verbalizes understanding - may use OTC acetaminophen products as directed on packaging - CYCLOBENZAPRINE 5 MG TABLET- discussed with patient medication can cause drowsiness so should notdrive or operate heavy machinery while taking, verbalizes understanding - METHYLPREDNISOLONE 4 MG TABLETS IN A DOSE PACK- disussed with patient he should not take NSAID prooducts whilte taking, verbalizes understanding - follow-up if fails to improve to ER with red flag symptoms Anita Stone APRN.CNP Prescription instructions reviewed with patient as applicable. Patient advised if symptoms do not improve or if symptoms worsen sooner, to contact their primary care physician. Potential red flag symptoms discussed with the patient. Reviewed appropriate action plan to take if red flag symptoms occur. Patient agreeable to treatment plan. Medical Decision Making: Problems: Low: Acute, uncomplicated illness or injury Risk: Low: Low risk from testing/treatment Medical Decision Making Level: 3 - Low [facility] History of Present illness Narrative* Anita Stone APRN.CNP - 09/07/2024 12:40 PM EST 09/07/2024 Patient presents with: F/U 6 months Chest Pain: Noticed palpitations last week 2 mornings for a few moments, and at lunch once SUBJECTIVE: This is a 78 year old that is here today for Above Complaints. CAD/CHF: follows [facility]iology with last visit on 05/13/2024. No medication changes at that time. Denies SOB, dyspnea, chest pain, palpitations or leg swelling Had two mornings last week and felt a couple a couple of different beats. Reports it was real quick. Thursday at lunch had a few fast beats. Denies accompanying diaphoresis, lightheadedness, dizziness,SOB, dyspnea, chest pain, back/jaw pain, nausea or vomiting HYPERLIPIDEMIA: Patient is taking medications: Yes. Patient is watching diet: Yes. Patient denies myalgias: Yes. Patient denies gi upset: Yes Prediabetes: tries to eat lower carbohydrate diet. Denies visual changes, polyuria, polydipsia. HOSSEIN: wears CPAP nightly. Feels rested when wakes up. Reports has had some falls int the last year. Thinks it may be due to his eyes. Going to get cataract surgery in the new year. Reports did do some balance training through a stepping up program. No injuries with fall. Reports he has worked on being more careful and not walking and and looking at phone. Denies any injures with falls. Continues to work on exercises for his balance. PAST MEDICAL HISTORY Diagnosis Date Actinic keratosis CAD (coronary artery disease) Dr. Rodriguez CHF (congestive heart failure) ([facility]) EF 40% 04/2022 Chronic right shoulder pain Diverticulosis of colon (without mention of hemorrhage) Myocardial infarction ([facility]) 07/31/2004 TPA, resolution w/o damage. Obesity (BMI 30.0-34.9) Obstructive sleep apnea DME [facility] [place] [phone] Other and unspecified hyperlipidemia Prediabetes Unspecified sleep apnea uses C-pap ALLERGIES Cats, Contrast Dye, Dogs, and Pollen MEDICATIONS Current Outpatient Medications Medication Sig Ciclopirox (LOPROX) 0.77 % gel Apply to affected area two times a day. Patient to start once he recieves CPAP/BIPAP/OTHER Type .CPAPSettings into a note to see current settings/supplies/DME information. ramipril (ALTACE) 5 mg capsule Take 1 capsule by mouth once daily. carvedilol (COREG) 6.25 mg tablet Take 1 tablet by mouth twice daily with meals. nitroglycerin sublingual (NITROQUICK) 0.4 mg SL tablet Dissolve 1 tablet under the tongue every 5 minutes as needed for chest pain. rosuvastatin (CRESTOR) 20 mg tablet Take 1 tablet by mouth once daily. vit A/vit C/vit E/zinc/copper (OCUVITE PRESERVISION ORAL) Take 1 tablet by mouth twice daily. fluticasone (FLONASE) 50 mcg/actuation nasal spray Use 2 Sprays in each nostril once daily. Rinse mouth after use. multivitamin tablet Take 1 tablet by mouth once daily. COMPOUNDED PRESCRIPTION CPAP mask of patient choice and supplies as needed. Dx 780.57 aspirin(ECOTRIN LOW STRENGTH 81 MG TAB) Take one(1) tablet daily. No current facility-administered medications for this visit. Medications and allergies reviewed by this provider. SOCIAL HISTORY Social History Tobacco Use Smoking status: Never Smokeless tobacco: Never Vaping Use Vaping status: Never Used Substance Use Topics Alcohol use: Yes Alcohol/week: 1.0 standard drink of alcohol Types: 1 Cans of Beer (12oz) per week Drug use: No REVIEW OF SYSTEMS All other reviewed and negative other than HPI. OBJECTIVE: BP 114/64 Pulse 71 Resp 16 Wt 90.4 kg (199 lb 4.7 oz) SpO2 97% BMI 29.43 kg/m . Vital signs reviewed by this provider. APPEARANCE Well appearing, alert, in no acute distress, well-hydrated, well nourished. EYES conjunctiva and sclera normal. EARS External ears normal, canals clear HEART RRR with normal S1 and S2, no murmurs, no gallops, no JVD appreciated LUNG clear to auscultation. No wheezes, rhonchi or rales EXTREMITIES Extremities normal, No deformities, No skin discoloration, and No edema SKIN Skin color, texture, turgor normal, no suspicious rashes or lesions to exposed skin Latest Ref Rng 03/09/2024 Hemoglobin A1C 4.3 - 5.6 % 5.6 Estimated Average Glucose mg/dL 114 Depression Screening Never done Anxiety Screening Never done LDL Cholesterol due on 02/28/2025 Annual PCP Team Chronic Disease Visit due on 09/07/2025 Diabetes Screening due on 03/09/2027 DTaP,Tdap,Td Vaccine(3 - Td or Tdap) due on 02/05/2028 Influenza Vaccine Completed Advance Directive Discussion Completed RSV Vaccine Completed Hepatitis C Screening Completed Shingrix Vaccine Completed Covid-19 Vaccine Completed Pneumococcal Vaccine: 65+ Completed Colorectal Cancer Screening Discontinued ASSESSMENT/PLAN: 1. Hyperlipidemia, unspecified hyperlipidemia type - ICD9: 272.4, ICD10: E78.5 (primary diagnosis) - Controlled - Continue current medications - Counseled on healthy diet and regular exercise - Follow up in 6 months, sooner should any other issues arise. 2. Palpitations - ICD9: 785.1, ICD10: R00.2 - no red flag symptoms or exam findings - red flag symptoms discussed, verbalizes understanding - discussed ZIo patch, patient declines at this time- he will monitor and let me know if becming fruent or he develops symptoms - ECG COMPLETE - THYROID STIMULATING HORMONE 3. HOSSEIN on CPAP - ICD9: 327.23, ICD10: G47.33 - continue nightly use 4. Prediabetes - ICD9: 790.29, ICD10: R73.03 - continue low carbohydrate diet and exercise 5. Coronary artery disease involving zuni coronary artery of zuni heart without angina pectoris- ICD9: 414.01, ICD10: I25.10 - stable - continue current medications - follow-up with cardiology as recommended 6. Chronic systolic congestive heart failure (HCC) - ICD9: 428.22, 428.0, ICD10: I50.22 - Continue current medications - Encouraged sodium restriction - Encouraged daily weights - Recommend regular aerobic exercise - Call if 3-5 lbs gained in 7 days - follow-up with cardiology as recommended 7. Frequent falls - ICD9: V15.88, ICD10: R29.6 - continue with balance exercises - may use cane for stabilization if needed - continue fall prevention measure in home- handrails on stairs, good lifting and no throw rugs - follow-up as needed Anita Stone APRN.CNP Prescription instructions reviewed with patient as applicable. Patient advised if symptoms do not improve or if symptoms worsen sooner, to contact their primary care physician. Potential red flag symptoms discussed with the patient. Reviewed appropriate action plan to take if red flag symptoms occur. Patient agreeable to treatment plan. Medical Decision Making: Problems: Moderate: 2+ stable chronic illnesses Data: Unique test(s) ordered: 2 Risk: Moderate: Drug management Medical Decision Making Level: 4 - Moderate documented in this encounterWay[facility]-27-[facility]24 NoteHNO ID: [id number] Author: ANITA STONE APRN.CNP Service: ? Author Type: Nurse Practitioner Type: Progress Notes Filed: 09/07/2024 13:39 Note Text: 09/07/2024 Patient presents with: F/U 6 months Chest Pain: Noticed palpitations last week 2 mornings for a few moments, and at lunch once SUBJECTIVE: This is a 78 year old that is here today for Above Complaints. CAD/CHF: follows [facility] Cardiology with last visit on 05/13/2024. No medication changes at that time. Denies SOB, dyspnea, chest pain, palpitations or leg swelling Had two mornings last week and felt a couple a couple of different beats. Reports it was real quick. Thursday at lunch had a few fast beats. Denies accompanying diaphoresis, lightheadedness, dizziness, SOB, dyspnea, chest pain, back/jaw pain, nausea or vomiting HYPERLIPIDEMIA: Patient is taking medications: Yes. Patient is watching diet: Yes. Patient denies myalgias: Yes. Patient denies gi upset: Yes Prediabetes: tries to eat lower carbohydrate diet. Denies visual changes, polyuria, polydipsia. HOSSEIN: wears CPAP nightly. Feels rested when wakes up. Reports has had some falls int the last year. Thinks it may be due to his eyes. Going to get cataract surgery in the new year. Reports did do some balance training through a stepping up program. No injuries with fall. Reports he has worked on being more careful and not walking and and looking at phone. Denies any injures with falls. Continues to work on exercises for his balance. PAST MEDICAL HISTORY Diagnosis Date Actinic keratosis CAD (coronary artery disease) Dr. Rodriguez CHF (congestive heart failure) ([facility]) EF 40% 04/2022 Chronic right shoulder pain Diverticulosis of colon (without mention of hemorrhage) Myocardial infarction ([facility]) 07/31/2004 TPA, resolution w/o damage. Obesity (BMI 30.0-34.9) Obstructive sleep apnea DME [facility] [place] [phone] Other and unspecified hyperlipidemia Prediabetes Unspecified sleep apnea uses C-pap ALLERGIES Cats, Contrast Dye, Dogs, and Pollen MEDICATIONS Current Outpatient Medications Medication Sig Ciclopirox (LOPROX) 0.77 % gel Apply to affected area two times a day. Patient to start once he recieves CPAP/BIPAP/OTHER Type .CPAPSettings into a note to see current settings/supplies/DME information. ramipril (ALTACE) 5 mg capsule Take 1 capsule by mouth once daily. carvedilol (COREG) 6.25 mg tablet Take 1 tablet by mouth twice daily with meals. nitroglycerin sublingual (NITROQUICK) 0.4 mg SL tablet Dissolve 1 tablet under the tongue every 5 minutes as needed for chest pain. rosuvastatin (CRESTOR) 20 mg tablet Take 1 tablet by mouth once daily. vit A/vit C/vit E/zinc/copper (OCUVITE PRESERVISION ORAL) Take 1 tablet by mouth twice daily. fluticasone (FLONASE) 50 mcg/actuation nasal spray Use 2 Sprays in each nostril once daily. Rinse mouth after use. multivitamin tablet Take 1 tablet by mouth once daily. COMPOUNDED PRESCRIPTION CPAP mask of patient choice and supplies as needed. Dx 780.57 aspirin(ECOTRIN LOW STRENGTH 81 MG TAB) Take one(1) tablet daily. No current facility-administered medications for this visit. Medications and allergies reviewed by this provider. SOCIAL HISTORY Social History Tobacco Use Smoking status: Never Smokeless tobacco: Never Vaping Use Vaping status: Never Used Substance Use Topics Alcohol use: Yes Alcohol/week: 1.0 standard drink of alcohol Types: 1 Cans of Beer (12oz) per week Drug use: No REVIEW OF SYSTEMS All other reviewed and negative other than HPI. OBJECTIVE: BP 114/64 Pulse 71 Resp 16 Wt 90.4 kg (199 lb 4.7 oz) SpO2 97% BMI 29.43 kg/m? . Vital signs reviewed by this provider. APPEARANCE Well appearing, alert, in no acute distress, well-hydrated, well nourished. EYES conjunctiva and sclera normal. EARS External ears normal, canals clear HEART RRR with normal S1 and S2, no murmurs, no gallops, no JVD appreciated LUNG clear to auscultation. No wheezes, rhonchi or rales EXTREMITIES Extremities normal, No deformities, No skin discoloration, and No edema SKIN Skin color, texture, turgor normal, no suspicious rashes or lesions to exposed skin Latest Ref Rng 03/09/2024 Hemoglobin A1C 4.3 - 5.6 % 5.6 Estimated Average Glucose mg/dL 114 Depression Screening Never done Anxiety Screening Never done LDL Cholesterol due on 02/28/2025 Annual PCP Team Chronic Disease Visit due on 09/07/2025 Diabetes Screening due on 03/09/2027 DTaP,Tdap,Td Vaccine(3 - Td or Tdap) due on 02/05/2028 Influenza Vaccine Completed Advance Directive Discussion Completed RSV Vaccine Completed Hepatitis C Screening Completed Shingrix Vaccine Completed Covid-19 Vaccine Completed Pneumococcal Vaccine: 65+ Completed Colorectal Cancer Screening Discontinued ASSESSMENT/PLAN: 1. Hyperlipidemia, unspecified hyperlipidemia type - ICD9: 272.4, ICD10: E78.5 (prima (more content not included)...[facility]05-30-2024 Telephone encounter Note* Telephone Encounter - Loretta Jackson MA - 03/10/2024 10:14 AM EDT Pt notified and verbalized understanding Loretta Jackson MA [facility] Miscellaneous Notes* Telephone Encounter - Loretta Jackson MA - 03/10/2024 10:14 AM EDT Pt notified and verbalized understanding Loretta Jackson MA * Telephone Encounter - Loretta Jackson MA - 03/10/2024 10:12 AM EDT ----- Message from Leandro Haines MD sent at 03/10/2024 8:06 AM EDT ----- A1c in normal range. Negative for diabetes or prediabetes. No change in regimen. Work on healthy diet and exercise. * Telephone Encounter - Emelyn Jackson LPN - 02/02/2024 9:11 AM EDT Triage nurse appt scheduled at 09:20 * Telephone Encounter - Leandro Haines MD - 02/02/2024 8:58 AM EDT Patient coming in today to see me at 1140 for a fall. Needs triaged to see if he had head injury, LOC, or significant joint pain with fall. documented in this encounterWay[facility]05-[facility] Telephone encounter Note * Telephone Encounter - Loretta Jackson MA - 03/10/2024 10:12 AM EDT ----- Message from Leandro Haines MD sent at 03/10/2024 8:06 AM EDT ----- A1c in normal range. Negative for diabetes or prediabetes. No change in regimen. Work on healthy diet and exercise. [facility]-29-[facility] Telephone encounter Note* Telephone Encounter - Steff Gan RN - 03/09/2024 1:38 PM EDT Spoke with patient. Given message from provider's office. Patient verbalizes understanding. Steff Gan RN [facility]05-29-[facility] Miscellaneous Notes* Telephone Encounter - Steff Gan RN - 03/09/2024 1:38 PM EDT Spoke with patient. Given message from provider's office. Patient verbalizes understanding. Steff Gan RN * Telephone Encounter - Viola Palmer MA - 03/09/2024 1:30 PM EDT LM for patient to contact office. Will have to come in for re-draw of A1C if he was fasting d/t cannot be added on. Viola Palmer MA * Telephone Encounter - Leandro Haines MD - 03/09/2024 9:04 AM EDT Normal labs aside from high sugar of 121. If he was fasting for this test, would recommend adding on A1c to rule out diabetes vs prediabetes. Come in in 1 week for blood draw. documented in this encounterWay[facility]05-29-2024 Telephone encounter Note * Telephone Encounter - Viola Palmer MA - 03/09/2024 1:30 PM EDT LM for patient to contact office. Will have to come in for re-draw of A1C if he was fasting d/t cannot be added on. Viola Palmer MA [facility]05-29-[facility] Telephone encounter Note* Telephone Encounter - Leandro Haines MD - 03/09/2024 9:04 AM EDT Normal labs aside from high sugar of 121. If he was fasting for this test, would recommend adding on A1c to rule out diabetes vs prediabetes. Come in in 1 week for blood draw. [facility] Instructions* Patient Instructions* Emelyn Jackson LPN - 02/25/2024 1:21 PM EDT Screening schedule The following prevention plan is recommended: Advance Directive Discussion due on 10/12/2023 Covid-19 Vaccine() due on 11/14/2023 LDL Cholesterol due on 02/25/2024 WHAT YOU CAN DO TO PREVENT FALLS Many falls can be prevented. By making some changes, you can lower your chances of falling. Four things YOU can do to prevent falls for you* and your caregiver 1. Begin a regular exercise program Exercise is one of the most important ways to lower your chances of falling. It makes you stronger and helps you feel better. Exercises that improve balance and coordination (like Samir Chi) are the most helpful. Lack of exercise leads to weakness and increases your chances of falling. Ask your doctor or health care provider about the best type of exercise program for you. 2. Have your health care provider review your medicines Have your doctor or pharmacist review all the medicines you take, even [id number] medicines. As you get older, the way medicines work in your body can change. Some medicines, or combinations of medicines, can make you sleepy or dizzy andcan cause you to fall. 3. Have your vision checked Have your eyes checked by an eye doctor at least once a year. You may be wearing the wrong glasses or have a condition like glaucoma or cataracts that limits your vision. Poor vision can increase your chances of falling. 4. Make your home safer About half of all falls happen at home. To make your home safer: Remove things you can trip over (like papers, books, clothes, and shoes) from stairs and places where you walk. Remove small throw rugs or use double-sided tape to keep the rugs from slipping. Keep items you use often in cabinets you can reach easily without using a step stool. Have grab bars put in next to your toilet and in the tub or shower. Use non-slip mats in the bathtub and on shower floors. Improve the lighting in your home. As you get older, you need brighter lights to see well. Hang light-weight curtains or shades to reduce glare. Have handrails and lights put in on all staircases. Wear shoes both inside and outside the house. Avoid going barefoot or wearing slippers. For more information, contact: Centers for Disease Control and Prevention www.cdc.gov/injury * This information may not apply if you have certain medical conditions. documented in this encounterWay[facility]05-[facility]24 History of Present illness Narrative* Leandro Haines MD - 02/25/2024 1:14 PM EDT Images from the original note were not included. Marisabel Reynoso is a 78 year old male here for a Medicare wellness visit. Medicare Health Risk Assessment General Health Very good Exercise: Minutes/Day 30 min Exercise: Days/Week 7 days Alcohol: Daily Use Monthly or less Alcohol: Drinks/Day 1 or 2 Alcohol: 6 or more drinks Never Feel off balance Yes Concerns: Teeth/Dentures No Concerns: Sexual function Troubled by feelings None of the above Frequency: Eating healthy diet Nearly every day ADLs requiring help Driving Safety precautions in home/vehicle Yes Smoke, vape, chews tobacco No Difficulty hearing Yes, I wear a hearing aid Difficulty seeing No Patient states that he does not feel off balance when walking, but did have a fall down the last couple of steps in the last month. Not driving at night due to his difficulty seeing at night. Completed Stepping on Program through [employer] to help with balance and walking. Very satisfied with theprogram. Requesting order for CPAP supplies and new machine. Unsure of his current settings. No previous order in our system. Agreeable to Auto pap. Denies daytime somnolence and snoring. States that he is able to fall asleep at the drop of a hat still, but this has been going on since he was in college. Current Providers Specialists: I have reviewed specialist-related care of the patient in the medical record. Current care team: Patient Care Team: Leandro Haines MD as PCP - General (Family Medicine) Outside specialists seen: Cardiology-Dr. Rodriguez, Optho-Soni Baeza, ENT-Dr. Hanson, Podiatry-Dr. Henley Medical/Family history review Reviewed and updated problem list, medical/surgical/family/social history, medications, and allergies. Opioid use review Opioid Medications (last 90 days) No data to display Depression screening Depression Screening PHQ-2 Score PHQ-9 Score 02/24/2024 0 0 Depression screening tool completed and reviewed. Based on score and interview, patient is not at risk for depression. Screening tool discussed with patient, and I recommended no further interventionat this time. Cognitive screening Mini Cog Score: 5 Cognitive screening reviewed and No further action needed (score 3-5). Functional Observation Was the patient's Timed Up & Go test unsteady or ? 12 seconds? No Advance Care Planning Surrogate decision maker and/or advance care plan documented FULL CODE. Will discuss with his . Measurements BP 110/66 Pulse 75 Resp 16 Wt 207 lb (93.9kg) SpO2 96% General Appearance: Well appearing, alert, in no acute distress, well-hydrated, well nourished.. Skin: Skin color, texture, turgor normal, no suspicious rashes or lesions. Lungs: Lungs clear to auscultation. No wheezing, rhonchi, rales.. Heart: RRR without murmur, gallop, or rubs. No ectopy. Vision Screening: Right: 20/100 Left: 20/ 40 Both: 20/50 with correction. Latest Ref Rng 02/24/2023 08/27/2023 WBC 3.70 - 11.00 k/uL 7.06 RBC 4.20 - 6.00 m/uL 4.93 Hemoglobin 13.0 - 17.0 g/dL 14.8 Hematocrit 39.0 - 51.0 % 45.3 MCV 80.0 - 100.0 fL 91.9 MCH 26.0 - 34.0 pg 30.0 MCHC 30.5 - 36.0 g/dL 32.7 RDW-CV 11.5 - 15.0 % 12.7 Platelet Count 150 - 400 k/uL 198 MPV 9.0 - 12.7 fL 10.6 Neut% % 63.9 Abs Neut (ANC) 1.45 - 7.50 k/uL 4.52 Lymph% % 21.8 Abs Lymph 1.00 - 4.00 k/uL 1.54 Clare% % 10.1 Abs Clare <0.87 k/uL 0.71 Eosin% % 3.3 Abs Eosin <0.46 k/uL 0.23 Baso% % 0.6 Abs Baso <0.11 k/uL 0.04 Immature Gran % % 0.3 IMMATURE GRANS (ABS) <0.10 k/uL <0.03 NRBC /100 WBC 0.0 Absolute nRBC <0.01 k/uL <0.01 DTYPE Auto Protein, Total 6.3 - 8.0 g/dL 6.6 6.3 Albumin 3.9 - 4.9 g/dL 4.3 4.2 Calcium 8.5 - 10.2 mg/dL 9.8 9.6 Bilirubin, Total 0.2 - 1.3 mg/dL 0.6 0.7 Alkaline Phosphatase 38 - 113 U/L 48 47 AST 14 - 40 U/L 19 23 ALT 10 - 54 U/L 13 20 Glucose 74 - 99 mg/dL 99 118 (H) BUN 9 - 24 mg/dL 21 26 (H) Creatinine 0.73 - 1.22 mg/dL 0.99 1.09 Sodium 136 - 144 mmol/L 141 141 Potassium 3.7 - 5.1 mmol/L 4.5 4.2 Chloride 97 - 105 mmol/L 103 107 (H) CO2 22 - 30 mmol/L 27 23 Anion Gap 9 - 18 mmol/L 11 11 eGFR >=60 mL/min/1.73m 79 71 Total Cholesterol, Nonfasting <200 mg/dL 115 Triglycerides, Nonfasting <150 mg/dL 130 HDL Cholesterol, Nonfasting >39 mg/dL 37 (L) LDL Cholesterol, Nonfasting <100 mg/dL 52 Non HDL Cholesterol, Nonfasting <130 mg/dL 78 VLDL Cholesterol, Nonfasting <30 mg/dL 26 Total Chol/HDL Ratio, Nonfasting <5.10 mg/dL 3.11 LDL/HDL Ratio, Nonfasting <2.54 mg/dL 1.41 Hemoglobin A1C 4.3 - 5.6 % 5.5 Estimated Average Glucose mg/dL 111 Legend: (L) Low (H) High Assessment/Plan Medicare annual wellness visit, subsequent (Z00.00) ASSESSMENT/PLAN: 1. Medicare annual wellness visit, subsequent - ICD9: V70.0, ICD10: Z00.00 (primary diagnosis) - Counseled on healthy diet and regular exercise - Fall avoidance information provided - Personalized prevention plan provided - Discussed need for and benefit of weight loss. BMI 30.57 kg/(m^2) - COMPLETE BLOOD COUNT AND DIFFERENTIAL - COMPREHENSIVE METABOLIC PANEL - LIPID PANEL BASIC 2. HOSSEIN on CPAP - ICD9: 327.23, ICD10: G47.33 Controlled on current settings. Order for new device and supplies placed. - CPAP DEVICE, WITH HUMIDIFIER - PAP THERAPY ORDER 3. Encounter for immunization - ICD9: V03.89, ICD10: Z23 - PFIZER-BIONTECH COVID-19 VACCINE ( [place]) AGE 12+ YR Leandro Haines MD documented in this encounterWayne [facility]04-23-2024 History of Present illness Narrative* Leandro Haines MD - 02/02/2024 11:43 AM EDT Chief Complaint Patient presents with: Knee Pain: Left knee-Patient came down onto left knee after tripping up steps on 01/26/24 [facility] Marisabel Reynoso is a 78 year old male who presents here today for Above Complaints. Patient states that he was walking down stairs 1 week ago and tripped with his right foot. Fell down 2 stairs and landed on his left knee on the carpeted floor. He was able to get up on his own without issues. Has had mild pain pain over the kneecap with palpation, but otherwise has not bothered him. Denies swelling, bruising, erythema, locking up, catching, giving out. Patient has been able to ambulate without pain and has even been able to weight lifting exercises with left leg without pain. Past medical history, appointments, medications, allergies reviewed. Previous Medical History PAST MEDICAL HISTORY Diagnosis Date Actinic keratosis CAD (coronary artery disease) Dr. Rodriguez CHF (congestive heart failure) ([facility]) EF 40% 04/2022 Chronic right shoulder pain Diverticulosis of colon (without mention of hemorrhage) Myocardial infarction ([facility]) 07/31/2004 TPA, resolution w/o damage. Obesity (BMI 30.0-34.9) Obstructive sleep apnea [facility] [place] [phone] Other and unspecified hyperlipidemia Prediabetes Unspecified sleep apnea uses C-pap Previous Surgical History PAST SURGICAL HISTORY Procedure Laterality Date COLONOSCOPY FLX DX W/COLLJ SPEC WHEN PFRMD 11/16/09 COLONOSCOPY FLX DX W/COLLJ SPEC WHEN PFRMD 03/27/2020 Colonoscopy HEART SURGERY HX PAST SURGICAL HISTORY OF 07/31/2004 CABG x 6 [facility] PAST SURGICAL HISTORY OF 04/03/1998, Jah , Stent placements single,single,four PAST SURGICAL HISTORY OF 09/20/12 right achilles tendon surgery x 2 PAST SURGICAL HISTORY OF 12/01/12 left pinky finger SIGMOIDOSCOPY FLX DX W/COLLJ SPEC BR/WA IF PFRMD Sigmoidoscopy [facility] Family History FAMILY HISTORY Problem Relation Age of Onset Stroke Mother suspected Asthma Father Heart Attack Brother Cancer Brother Patient Allergies ALLERGIES Allergen Reactions Cats Cough, Anaphylaxis Contrast Dye Itching Dogs Cough Pollen Cough Current Medications Current Outpatient Medications on File Prior to Visit Medication Sig ramipril (ALTACE) 5 mg capsule Take 1 capsule by mouth once daily. carvedilol (COREG) 6.25 mg tablet Take 1 tablet by mouth twice daily with meals. nitroglycerin sublingual (NITROQUICK) 0.4 mg SL tablet Dissolve 1 tablet under the tongue every 5 minutes as needed for chest pain. rosuvastatin (CRESTOR) 20 mg tablet Take 1 tablet by mouth once daily. vit A/vit C/vit E/zinc/copper (OCUVITE PRESERVISION ORAL) Take 1 tablet by mouth twice daily. fluticasone (FLONASE) 50 mcg/actuation nasal spray Use 2 Sprays in each nostril once daily. Rinse mouth after use. multivitamin tablet Take 1 tablet by mouth once daily. COMPOUNDED PRESCRIPTION CPAP mask of patient choice and supplies as needed. Dx 780.57 aspirin(ECOTRIN LOW STRENGTH 81 MG TAB) Take one(1) tablet daily. No current facility-administered medications on file prior to visit. Social History Social History Tobacco Use Smoking status: Never Smokeless tobacco: Never Vaping Use Vaping Use: Never used Substance Use Topics Alcohol use: Yes Alcohol/week: 1.0 standard drink of alcohol Types: 1 Cans of Beer (12oz) per week Drug use: No Review of Symptoms REVIEW OF SYSTEMS See HPI EXAM: BP 100/58 Pulse 70 Resp 16 Wt 94.6 kg (208 lb 9.6 oz) SpO2 97% BMI 30.80 kg/m General Appearance: Well appearing, alert, in no acute distress, well-hydrated, well nourished.. Skin: Small area of bruising on medial/inferior aspect of left knee in late stage of healing without hematoma. Musculoskeletal: No joint swelling, deformity. Mild TTP over prepatellar bursa with mild swelling KNEE:Location: Left Redness: No. Warmth: No. Crepitus: Yes. Effusion: No. Joint line tenderness: No. Lateral tenderness: No. Medial tenderness: No. Drawer sign negative: Yes. Medial or lateral laxity: No. Adrienne's sign: No. Health Maintenance List Advance Directive Discussion due on 10/12/2023 LDL Cholesterol due on 02/25/2024 Annual PCP Team Chronic Disease Visit due on 11/17/2024 Diabetes Screening due on 08/27/2026 DTaP,Tdap,Td Vaccine(3 - Td or Tdap) due on 02/05/2028 Influenza Vaccine Completed RSV Vaccine Completed Hepatitis C Screening Completed Shingrix Vaccine Completed Covid-19 Vaccine Completed Pneumococcal Vaccine: 65+ Completed Colorectal Cancer Screening Discontinued Behavioral Health Screening Discontinued ASSESSMENT/PLAN: 1. Fall in home, initial encounter - ICD9: E888.9, E849.0, ICD10: W19.XXXA, Y92.009 (primary diagnosis) Slip and fall at home without head injury or LOC. Exam today consistent with contusion. Without significant pain or swelling, I would not recommend imaging. Discussed rest, ice/heat, OTC analgesics, and elevation. Call if worsening. 2. Contusion of left knee, initial encounter - ICD9: 924.11, ICD10: S80.02XA See above. Leandro Haines MD documented in this encounterWayne [facility]04-23-2024 Telephone encounter Note * Telephone Encounter - Leandro Haines MD - 02/02/2024 9:57 AM EDT Reviewed. Keep OV today as scheduled. [facility]04-23-2024 Miscellaneous Notes* Telephone Encounter - Leandro Haines MD - 02/02/2024 9:57 AM EDT Reviewed. Keep OV today as scheduled. * Telephone Encounter - Susana De Luna RN - 02/02/2024 9:22 AM EDT Protocol recommends see PCP in 2 weeks. Pt has an appointment with provider today. Care plan reviewed with patient. Patient voices understanding. Advised patient that if symptoms get worse to be evaluated in Urgent Care or ER. Reason for Disposition [1] Falling (two or more falls) AND [2] in past year Answer Assessment - Initial Assessment Questions 1. MECHANISM: Pt states he was walking down the stairs and his foot caught on the lip of the top step, and he tumbled down the stair and landed on his left knee. Denies hitting his heat or catching himself on his hands or elbows. 2. DOMESTIC VIOLENCE AND ELDER ABUSE SCREENING: Pt denies someone pushing or trying to hurt him. 3. ONSET: The fall happened over a week ago. 4. LOCATION: The part of the body that hit the ground was the Pt L knee. 5. INJURY: Pt reports he landed on his L knee when he fell, he states the are only hurts when he touches it. 6. PAIN: - NONE (0): No pain - MILD (1-3): Doesn't interfere with normal activities - MODERATE (4-7): Interferes with normal activities or awakens from sleep - SEVERE (8-10): Excruciating pain, unable to do any normal activities Pain is a 1-2/10 dull when he touches it. 7. SIZE: Pt denies cuts or bruises. Pt would like a professional to look for swelling, but he states he doesn't see any. 8. : N/A 9. OTHER SYMPTOMS: Pt denies dizziness, fever, weakness; new onset or worsening. 10. CAUSE: Pt reports he tripped on the lip of the step. This is the second time he has fallen in the year. He fell before chasing after a grandchild. Pt states he has 2 vacations this year and wantsto make sure everything is ok. Protocols used: Falls and [id number] documented in this encounterWayne Healthcare [facility] Campus04-23-2024 Telephone encounter Note * Telephone Encounter - Susana De Luna RN - 02/02/2024 9:22 AM EDT Protocol recommends see PCP in 2 weeks. Pt has an appointment with provider today. Care plan reviewed with patient. Patient voices understanding. Advised patient that if symptoms get worse to be evaluated in Urgent Care or ER. Reason for Disposition [1] Falling (two or more falls) AND [2] in past year Answer Assessment - Initial Assessment Questions 1. MECHANISM: Pt states he was walking down the stairs and his foot caught on the lip of the top step, and he tumbled down the stair and landed on his left knee. Denies hitting his heat or catching himself on his hands or elbows. 2. DOMESTIC VIOLENCE AND ELDER ABUSE SCREENING: Pt denies someone pushing or trying to hurt him. 3. ONSET: The fall happened over a week ago. 4. LOCATION: The part of the body that hit the ground was the Pt L knee. 5. INJURY: Pt reports he landed on his L knee when he fell, he states the are only hurts when he touches it. 6. PAIN: - NONE (0): No pain - MILD (1-3): Doesn't interfere with normal activities - MODERATE (4-7): Interferes with normal activities or awakens from sleep - SEVERE (8-10): Excruciating pain, unable to do any normal activities Pain is a 1-2/10 dull when he touches it. 7. SIZE: Pt denies cuts or bruises. Pt would like a professional to look for swelling, but he states he doesn't see any. 8. : N/A 9. OTHER SYMPTOMS: Pt denies dizziness, fever, weakness; new onset or worsening. 10. CAUSE: Pt reports he tripped on the lip of the step. This is the second time he has fallen in the year. He fell before chasing after a grandchild. Pt states he has 2 vacations this year and wantsto make sure everything is ok. Protocols used: Falls and [id number] [facility]04-23-2024 Telephone encounter Note* Telephone Encounter - Emelyn Jackson LPN - 02/02/2024 9:11 AM EDT Triage nurse appt scheduled at 09:20 [facility]04-23-[facility]24 Telephone encounter Note* Telephone Encounter - Leandro Haines MD - 02/02/2024 8:58 AM EDT Patient coming in today to see me at 1140 for a fall. Needs triaged to see if he had head injury, LOC, or significant joint pain with fall. [facility]02-06-[facility]24 Procedure note* Leandro Haines MD - 11/17/2023 3:09 PM EST After the risks and options of alternative treatments were reviewed, the lesion(s) located on Face:right voodoo was treated with cryosurgery. A total of 1 lesion(s) was treated with total of 3 freeze/thaw cycles after cleaning area with alcohol. Bandage applied. No complications. Leandro Haines MD documented in this encounterWayne Healthcare Main Campus02-06-2024 Instructions* Patient Instructions* Leandro Haines MD - 11/17/2023 3:03 PM EST SKIN CARE AFTER CRYOSURGERY The SKIN'S response to cryosurgery (freezing) can be mild to more severe, depending on the depth ofthe freeze and the location of the area treated. You may have only mild redness and swelling with alittle discomfort of significant discoloration and blistering with considerable discomfort. A burning sensation in the skin may last from several minutes to several hours after the procedure. Follow these instructions when caring for an area treated by cryosurgery: MINOR RESPONSE: 1. The area may sing or burn for a short time after treatment. 2. The treated area will be red in color at first then turn brown and flakey as it heals and the upper layer of skin sloughs off. 3. Gently cleanse the area with anti-bacterial soap and water. Pat dry and apply a thin film of antibiotic ointment. Do this at least once a day to prevent infection. MAJOR RESPONSE: 1. Follow instructions as stated for minor response. 2. The area may sting and burn for several hours after treatment. 3. To relieve throbbing and pain, elevate the treatment area. 4. If instructed by your physician, you may take [id number] pain medications as needed for discomfort. 5. A blister will form in the area of freezing. It may be filled with clear fluid or blood. This response is not unusual. 6. Do not break the blister unless it becomes uncomfortable. You may prick the blister with a sterile needle or pin to remove the fluid. Leave the skin intact. 7. All treated areas usually heal within 3 to 4 weeks. documented in this encounterWayne Healthcare [facility] Campus02-06-2024 History of Present illness Narrative* Leandro Haines MD - 11/17/2023 2:43 PM EST Chief Complaint Patient presents with: Follow Up: Discuss cancer screening results from [facility] HPI Marisabel Reynoso is a 77 year old male who presents here today for Above Complaints. Patient evaluated at [facility] on 11/10 and was diagnosed with Actinic Keratosis on the right voodoo. They offered treatment here, but he opted to have cryotherapy through our office instead. Risks and benefits discussed prior to procedure today. Past medical history, appointments, medications, allergies reviewed. Previous Medical History PAST MEDICAL HISTORY Diagnosis Date Actinic keratosis CAD (coronary artery disease) Dr. Rodriguez CHF (congestive heart failure) ([facility]) EF 40% 04/2022 Chronic right shoulder pain Diverticulosis of colon (without mention of hemorrhage) Myocardial infarction ([facility]) 07/31/2004 TPA, resolution w/o damage. Obesity (BMI 30.0-34.9) Obstructive sleep apnea [facility] [place] [phone] Other and unspecified hyperlipidemia Prediabetes Unspecified sleep apnea uses C-pap Previous Surgical History PAST SURGICAL HISTORY Procedure Laterality Date COLONOSCOPY FLX DX W/COLLJ SPEC WHEN PFRMD 11/16/09 COLONOSCOPY FLX DX W/COLLJ SPEC WHEN PFRMD 03/27/2020 Colonoscopy HEART SURGERY HX PAST SURGICAL HISTORY OF 07/31/2004 CABG x 6 [facility] PAST SURGICAL HISTORY OF 04/03/1998, Jah , Stent placements single,single,four PAST SURGICAL HISTORY OF 09/20/12 right achilles tendon surgery x 2 PAST SURGICAL HISTORY OF 12/01/12 left pinky finger SIGMOIDOSCOPY FLX DX W/COLLJ SPEC BR/WA IF PFRMD Sigmoidoscopy [facility] Family History FAMILY HISTORY Problem Relation Age of Onset Stroke Mother suspected Asthma Father Heart Attack Brother Cancer Brother Patient Allergies ALLERGIES Allergen Reactions Cats Cough, Anaphylaxis Contrast Dye Itching Dogs Cough Pollen Cough Current Medications Current Outpatient Medications on File Prior to Visit Medication Sig ramipril (ALTACE) 5 mg capsule Take 1 capsule by mouth once daily. carvedilol (COREG) 6.25 mg tablet Take 1 tablet by mouth twice daily with meals. nitroglycerin sublingual (NITROQUICK) 0.4 mg SL tablet Dissolve 1 tablet under the tongue every 5 minutes as needed for chest pain. rosuvastatin (CRESTOR) 20 mg tablet Take 1 tablet by mouth once daily. vit A/vit C/vit E/zinc/copper (OCUVITE PRESERVISION ORAL) Take 1 tablet by mouth twice daily. fluticasone (FLONASE) 50 mcg/actuation nasal spray Use 2 Sprays in each nostril once daily. Rinse mouth after use. multivitamin tablet Take 1 tablet by mouth once daily. COMPOUNDED PRESCRIPTION CPAP mask of patient choice and supplies as needed. Dx 780.57 aspirin(ECOTRIN LOW STRENGTH 81 MG TAB) Take one(1) tablet daily. No current facility-administered medications on file prior to visit. Social History Social History Tobacco Use Smoking status: Never Smokeless tobacco: Never Vaping Use Vaping Use: Never used Substance Use Topics Alcohol use: Yes Alcohol/week: 1.0 standard drink of alcohol Types: 1 Cans of Beer (12oz) per week Drug use: No Review of Symptoms REVIEW OF SYSTEMS GENERAL: No weight loss, malaise or fevers SKIN: See HPI EXAM: BP 106/58 Pulse 68 Resp 16 Wt 93.1 kg (205 lb 3.2 oz) SpO2 96% BMI 30.30 kg/m General Appearance: Well appearing, alert, in no acute distress, well-hydrated, well nourished.. Skin: faint AK on right voodoo about 1 cm in diameter without surrounding cellulitis. Health Maintenance List Advance Directive Discussion due on 10/12/2023 LDL Cholesterol due on 02/25/2024 Annual PCP Team Chronic Disease Visit due on 09/28/2024 Diabetes Screening due on 08/27/2026 DTaP,Tdap,Td Vaccine(3 - Td or Tdap) due on 02/05/2028 Lipid Screening due on 02/25/2028 Colorectal Cancer Screening due on 03/27/2030 Influenza Vaccine Completed RSV Vaccine Completed Hepatitis C Screening Completed Shingrix Vaccine Completed Covid-19 Vaccine Completed Pneumococcal Vaccine: 65+ Completed Depression Assessment Discontinued ASSESSMENT/PLAN: 1. Actinic keratosis - ICD9: 702.0, ICD10: L57.0 (primary diagnosis) See procedure note. Wound care instructions given. Red flags for re-assessment reviewed with patient in detail. F/u in 2-3 weeks if not completely resolved. - DESTRUCTION, 1ST LESION 2. S/P cryotherapy of skin lesion - ICD9: V45.89, ICD10: Z98.890 See above. - DESTRUCTION, 1ST LESION Leandro Haines MD documented in this encounterWayne Healthcare Main Campus12-18-2023 History of Present illness Narrative* Podlogar, ELVIN Howard.[facility] - 09/28/2023 1:23 PM EST 09/28/2023 Patient presents with: Derm Problem: Black spot to back that patient has noticed the last few weeks SUBJECTIVE: This is a 77 year old that is here today for Above Complaints. For the last few weeks has had a black spot on his back. Not sure how long it has been there. Does not itch, bleed or have drainage from it. Has not put anything on area. Has appointment with set up mechanic stamping machines in October. Denies hx of skin cancer PAST MEDICAL HISTORY Diagnosis Date Actinic keratosis CAD (coronary artery disease) Dr. Rodriguez CHF (congestive heart failure) ([facility]) EF 40% 04/2022 Chronic right shoulder pain Diverticulosis of colon (without mention of hemorrhage) Myocardial infarction (HCC) 07/31/2004 TPA, resolution w/o damage. Obesity (BMI 30.0-34.9) Obstructive sleep apnea [facility] [place] [phone] Other and unspecified hyperlipidemia Prediabetes Unspecified sleep apnea uses C-pap ALLERGIES Cats, Contrast Dye, Dogs, and Pollen MEDICATIONS Current Outpatient Medications Medication Sig ramipril (ALTACE) 5 mg capsule Take 1 capsule by mouth once daily. carvedilol (COREG) 6.25 mg tablet Take 1 tablet by mouth twice daily with meals. nitroglycerin sublingual (NITROQUICK) 0.4 mg SL tablet Dissolve 1 tablet under the tongue every 5 minutes as needed for chest pain. rosuvastatin (CRESTOR) 20 mg tablet Take 1 tablet by mouth once daily. vit A/vit C/vit E/zinc/copper (OCUVITE PRESERVISION ORAL) Take 1 tablet by mouth twice daily. fluticasone (FLONASE) 50 mcg/actuation nasal spray Use 2 Sprays in each nostril once daily. Rinse mouth after use. multivitamin tablet Take 1 tablet by mouth once daily. COMPOUNDED PRESCRIPTION CPAP mask of patient choice and supplies as needed. Dx 780.57 aspirin(ECOTRIN LOW STRENGTH 81 MG TAB) Take one(1) tablet daily. No current facility-administered medications for this visit. Medications and allergies reviewed by this provider. SOCIAL HISTORY Social History Tobacco Use Smoking status: Never Smokeless tobacco: Never Vaping Use Vaping Use: Never used Substance Use Topics Alcohol use: Yes Alcohol/week: 1.0 standard drink of alcohol Types: 1 Cans of Beer (12oz) per week Drug use: No REVIEW OF SYSTEMS All other reviewed and negative other than HPI. OBJECTIVE: BP 96/60 Pulse (!) 58 Resp 18 Wt 92.9 kg (204 lb 12.8 oz) SpO2 96% BMI 30.24 kg/m . Vitalsigns reviewed by this provider. APPEARANCE Well appearing, alert, in no acute distress, well-hydrated, well nourished. SKIN approximately pencil eraser sized circular light brown papule stuck on appearance with some scaling in the center or mid back. No TTP, surrounding erythema or drainage observed LDL Cholesterol due on 02/25/2024 Annual PCP Team Chronic Disease Visit due on 08/27/2024 Diabetes Screening due on 08/27/2026 DTaP,Tdap,Td Vaccine(3 - Td or Tdap) due on 02/05/2028 Lipid Screening due on 02/25/2028 Colorectal Cancer Screening due on 03/27/2030 Influenza Vaccine Completed Advance Directive Discussion Completed RSV Vaccine Completed Hepatitis C Screening Completed Shingrix Vaccine Completed Covid-19 Vaccine Completed Pneumococcal Vaccine: 65+ Completed Depression Assessment Discontinued ASSESSMENT/PLAN: 1. Seborrheic keratosis - ICD9: 702.19, ICD10: L82.1 - area consistent with appearance of seborrheic keratosis - no red flag symptoms or exam finding - red flag symptoms discussed, verbalizes understanding - follow-up with dermatology as scheduled Anita Stone APRN.[employer] Prescription instructions reviewed with patient as applicable. Patient advised if symptoms do not improve or if symptoms worsen sooner, to contact their primary care physician. Potential red flag symptoms discussed with the patient. Reviewed appropriate action plan to take if red flag symptoms occur. Patient agreeable to treatment plan. I spent a total of 20 minutes on the date of the service which included preparing to see the patient, [id number] patient care, completing clinical documentation, obtaining and/or reviewing separately obtained history, performing a medically appropriate examination, and counseling and educating the patient/family/caregiver. documented in this encounterWayne Healthcare Main Campus2023 History of Present illness Narrative* Augusto Cheatham, PT - 09/25/2023 11:32 AM EST Episode Visit Count: 5 Therapist That Will Accept/Oversee The Plan Of Care: Augusto Cheatham PT Start of Care Date: 08/26/23 Onset Date: 07/26/23 Plan of Care Certification Date: 08/26/23 Next Certification Due Date: 10/07/23 Patient Identified by Name and Date of : Yes REHABILITATION AND SPORTS THERAPY PHYSICAL THERAPY DISCONTINUANCE OF CARE PLAN OF CARE UPDATE: Assessment: Marisabel Reynoso is discontinued from Physical Therapy services due to goal achievement andmaximal benefit. and Patient/Clinician mutual decision to discontinue current plan of care.. Patient was seen for 5 visits from Start of Care Date: 08/26/23 to 09/25/2023 and treatment included: Therapeutic exercise, Self-long-term management, Patient/Family/Caregiver Education, and Body mechanics training. Updated: 09/25/23 Goals for Episode of Care: created on 08/26/23 through 10/07/23 [place] in home exercise program. - MET Patient will decrease pain to 0/10 at rest and with functional activities to allow patient to improve transfers and sleep. - MET Patient will increase flexibility of L hip IR to equal unaffected extremity/side pain-free to improve mechanics and decrease pain. - MET Perform stairs, sleeping and getting out of car without pain. - MET Increased strength of core and L LE to WFL for improved ability with stairs and transfers - Partially MET Reciprocal stair negotiation. - MET Patient Goals: eliminate pain - MET SUBJECTIVE: Pt reports that overall, he is doing well and having less pain. He reports compliance with HEP 3x day and that he is working to improve his ability with PPT and core activation exercises.He reports minimal to no pain in L knee and that this pain is no longer impacting his ability with transfers and sleeping. He has not noticed any significant pain with getting into and out of passenger side of car but has not significantly tested this. He denies any functional limitations with carrying boxes of [place] decorations on stairs. He reports that he is now able to negotiate stairs reciprocally. Pain: Pain Pain Level: 0 Pain Location: Knee - Left Description: Aching ("ache but no pain) Frequency: Intermittent Post Treatment Pain Post Treatment Pain Level: No Change Post Treatment Symptoms: Pt reports confidence in his ability to continue with HEP independently. PROMIS Scales Higher is Better 09/24/2023 08/24/2023 Phys Func - Score 52 (within normal limits) 44 (mild dysfunction) Phys Func - Percentile 58% 27% Self-Eff Symptom - Score 56 (Average) 44 (Average) Self-Eff Symptom - Percentile 73% 27% T-scores: mean of general population = 50. 5 points is clinically meaningfully difference Percentiles provide an indication of how the patient's score ranks in relation to the general population. Higher percentile rankings indicate better function/quality of life. 50th percentile is the average of the general population and indicates half of respondents had a worse score. OBJECTIVE MEASURES WITH LEVEL OF FUNCTION: LE Flexibility Flexibility: Piriformis Flexibility R Piriformis Flexibility: 40 L Piriformis Flexibility: 42 LE Strength Trunk Strength: Pt is better able to actively fire core muscles but this will benefit from additional work in HEP. TREATMENT: Therapeutic Exercise: 1: Upright bike seat #7 x5 minutes. (Pt provided an update on his condition and plan of care reviewed. Subjective portion of goals assessed) 2: Supine L piriformis stretch 3x30 seconds 3: supine isometric abdominals via isometric shoulder extension reviewed 4: supine PPT with stabilizer pressure biofeedback 2x10 5: *supine PPT sustained with B alt marching 2x10 using stabilizer pressure biofeedback 6: *supine PPT sustained with bent knee fall outs 2x10 with stabilizer pressure biofeedback 7: Lots of cuing for proper technique with PPT 8: HEP reviewed and continuation encouraged pt questions answered. 9: Re-assessment results were reviewed with patient and used as rationale for proposed d/c recommendations. Skilled Intervention: Patient was educated in proper exercise technique and purpose for exercises. Reviewed and educated patient on additions/changes for home exercise program as above (*). Skilled judgment was used in selection of appropriate interventions. Provided written instruction for home exercise program to facilitate proper performance and compliance. Correct performance of therapeutic exercises was facilitated with verbal, visual, and tactile cuing. Patient education as noted. Billing Therapeutic Exercise Treatment Minutes: 47 Skilled Treatment Time Minutes (timed and untimed codes): 47 Total Session Time (minutes): 47 Session Start Time : 1033 Session Stop Time : 1120 Augusto Cheatham PT * Augusto Cheatham PT - 09/25/2023 11:15 AM EST Program_ID:[id number] Access Code: [email or web address] URL: [email or web address] Date: 09-25-2023 Prepared By: Augusto Chaetham Program Notes Exercises - Supine Piriformis Stretch with Foot on Ground - 3 x daily - 7 x weekly - sets - 3 reps - Supine Transversus Abdominis Bracing - Hands on Ground - 1 x daily - 7 x weekly - 2 sets - 10 reps - Supine Hamstring Stretch - 1 x daily - 7 x weekly - 1 sets - 3 reps - Seated Hamstring Stretch - 1 x daily - 7 x weekly - 2 sets - 10 reps - Supine March with Posterior Pelvic Tilt - 2 x daily - 7 x weekly - 2 sets - 10 reps - Supine Posterior Pelvic Tilt with Knee Rocks - 2 x daily - 7 x weekly - 2 sets - 10 reps - Supine Posterior Pelvic Tilt - 1 x daily - 7 x weekly - 2 sets - 10 reps documented in this encounterWay[facility]12-08-2023 History of Present illness Narrative* Augusto Cheatham PT - 09/18/2023 12:20 PM EST Episode Visit Count: 4 Therapist That Will Accept/Oversee The Plan Of Care: Augusto Cheatham PT Start of Care Date: 08/26/23 Onset Date: 07/26/23 Plan of Care Certification Date: 08/26/23 Next Certification Due Date: 10/07/23 Patient Identified by Name and Date of : Yes REHABILITATION AND SPORTS THERAPY PHYSICAL THERAPY TREATMENT NOTE ASSESSMENT: Marisabel Reynoso tolerated the session with fatigue, decreased symptoms, expected muscle soreness, and no issues. He demonstrated improvements in pain, hip flexibility and core activation. The patient will continue to benefit from ongoing skilled physical therapy to progress toward set goals and for reassessment by supervising therapist. PLAN FOR NEXT VISIT: Continue with postural stretching and strengthening as well as hip flexibility. Re-assess for plan of care update and likely d/c . SUBJECTIVE: Pt reports that he is clearly better with a significant decrease in pain. He reports that medial L knee pain is almost fully abolished. He denies any pain to start today. He reports compliance with HEP as instructed without any pain or problems. He denies any pain with getting out of passenger side of car and only minimal pain with getting into and out of bed in the middle of the night. Pain: Pain Pain Level: 0 Pain Location: Knee - Left Description: (no pain to start today) Frequency: Intermittent Post Treatment Pain Post Treatment Pain Level: Better Post Treatment Symptoms: After session today, pt reported feeling better. He denied any pain to start today and also denied any pain as he was leaving. OBJECTIVE MEASURES WITH LEVEL OF FUNCTION: LE Flexibility Flexibility: Piriformis Flexibility L Piriformis Flexibility: 44 TREATMENT: Therapeutic Exercise: 1: [employer] seat #13 x5 minutes (Pt provided an update on his condition and plan of care reviewed) 2: Supine L piriformis stretch 3x30 seconds 3: supine isometric abdominals via isometric shoulder extension 2x10 4: supine PPT with stabilizer pressure biofeedback 2x10 5: supine PPT sustained with B alt marching 2x10 using stabilizer pressure biofeedback 6: supine PPT sustained with bent knee fall outs 2x10 with stabilizer pressure biofeedback 7: Lots of cuing for proper technique 8: HEP reviewed and continuation encouraged pt questions answered. Skilled Intervention: Patient was educated in proper exercise technique and purpose for exercises. Skilled judgment was used in selection of appropriate interventions. Correct performance of therapeutic exercises was facilitated with verbal, visual, and tactile cuing. Patient education as noted. Billing Therapeutic Exercise Treatment Minutes: 45 Skilled Treatment Time Minutes (timed and untimed codes): 45 Total Session Time (minutes): 45 Session Start Time : 1115 Session Stop Time : 1200 Augusto Cheatham PT documented in this encounterWayne [facility]12-01-2023 History of Present illness Narrative* Layla Steele PTA - 09/11/2023 10:54 AM EST Program_ID:[id number] Access Code: [email or web address] URL: [email or web address] Date: 09-11-2023 Prepared By: Augusto Cheatham Program Notes Exercises - Supine Piriformis Stretch with Foot on Ground - 3 x daily - 7 x weekly - - 3 - Supine Transversus Abdominis Bracing - Hands on Ground - 1 x daily - 7 x weekly - 2 - 10 - Supine Hamstring Stretch - 1 x daily - 7 x weekly - 1 - 3 - Seated Hamstring Stretch - 1 x daily - 7 x weekly - 2 - 10 - Supine March with Posterior Pelvic Tilt - 2 x daily - 7 x weekly - 2 - 10 * Augusto Cheatham PT - 09/11/2023 10:16 AM EST Episode Visit Count: 3 Therapist That Will Accept/Oversee The Plan Of Care: Augusto Cheatham PT Start of Care Date: 08/26/23 Onset Date: 07/26/23 Plan of Care Certification Date: 08/26/23 Next Certification Due Date: 10/07/23 Patient Identified by Name and Date of : Yes REHABILITATION AND SPORTS THERAPY PHYSICAL THERAPY TREATMENT NOTE ASSESSMENT: Marisabel Reynoso tolerated the session with fatigue and expected muscle soreness. He demonstrated difficulty with seated TA activation due to tendency to hold his breath, improved with reps. The patient will continue to benefit from ongoing skilled physical therapy to progress toward set goals. PLAN FOR NEXT VISIT: Consider Pallof's press or Stir the pot. SUBJECTIVE: Pt feels that he is doing better overall. Pt states that his knee hurts when getting out of bed. Pt feels that his muscle have been worked, especially on left side low back after exercises, no increase in pain. Pain: Pain Pain Level: (" I can still feel it a little") Pain Location: Knee - Left Frequency: Intermittent Post Treatment Pain Post Treatment Pain Level: No Change OBJECTIVE MEASURES WITH LEVEL OF FUNCTION: TREATMENT: Therapeutic Exercise: 1: Seated HS stretch 3x30 seconds LLE 2: Supine L piriformis stretch 3x30 seconds ("I have more flexibility with this stretch") 3: hooklying TA bracing with LE marching 2x10 B 4: *PPT 2x10 5: Hooklying push into 55 cm physioball 2x10 6: Hooklying push into 55 cm physioball 10 x 10 second holds 7: Seated TA activation with 2-3 second holds 2x10 8: Seated TA activation with alt Le marching 2x10 B Skilled Intervention: Patient was educated in proper exercise technique and purpose for exercises. Reviewed and educated patient on additions/changes for home exercise program as above (*). Skilled judgment was used in selection of appropriate interventions. Provided written instruction for home exercise program to facilitate proper performance and compliance. Correct performance of therapeutic exercises was facilitated with verbal and visual cuing. Billing Therapeutic Exercise Treatment Minutes: 41 Skilled Treatment Time Minutes (timed and untimed codes): 41 Total Session Time (minutes): 41 Session Start Time : 1015 Session Stop Time : 1056 Layla Steele, PLANT ATTENDANT Augusto Cheatham PT documented in this encounterWayne [facility]11-20-2023 Miscellaneous Notes* Telephone Encounter - Lynn Hernandez Ma - 08/31/2023 10:07 AM EST Pt notified of results via [employer]. Lynn Hernandez Ma * Telephone Encounter - Lynn Hernandez Ma - 08/31/2023 10:06 AM EST ----- Message from Leandro Haines MD sent at 08/30/2023 2:02 PM EST ----- Glucose mildly elevated, otherwise normal labs. No change to regimen. documented in this encounterWayne Healthcare [facility] Campus11-01-2023 History of Present illness Narrative* Didi Franklin RT(R) - 08/12/2023 9:50 AM EDT Radiology Service Progress Note PATIENT NAME: Marisabel Reynoso DATE OF SERVICE: August 12, 2023 TIME: 9:43 AM PATIENT IDENTITY VERIFICATION COMPLETED USING TWO (2) IDENTIFIERS: Name and Date of confirmedby patient verbally. FALL SCREENING: Has the patient had 2 falls in the last year or 1 fall with injury or currently using an Ambulatory Assistive Device (Walker, Cane, Wheelchair, Crutches, etc.)? No PATIENT GENDER DATA: Male PATIENT RELEVANT IMPLANT DATA REVIEWED: Yes RADIOLOGY DEPARTMENT: General X-ray: Exam(s) Completed: Lower Extremity X- Ray(s): Knee, AP / Lat / Tunne / Merchant Left and Wt. Bearing PERIPHERAL IV DATA: Not applicable SIGNED BY: RT Josesito(R) August 12, 2023 9:43 AM documented in this encounterWayne Healthcare [facility]11-01-2023 Instructions* Patient Instructions* Leandro Haines MD - 08/12/2023 9:25 AM EDT Avoid Ibuprofen and aleve due to your history of heart disease. You may take tylenol for pain as needed. documented in this encounterWayne [facility]11-01-2023 History of Present illness Narrative* Leandro Haines MD - 08/12/2023 9:10 AM EDT Chief Complaint Patient presents with: Left knee pain x2 weeks HPI Marisabel Reynoso is a 77 year old male who presents here today for Above Complaints. Patient complaining of 2 week history of intermittent left knee pain without injury. Located over medial aspect of his knee. Described as aching pain which typically lasts about 30-60 seconds. Exacerbated with getting in and out of car, and lying on his back. Improved with lying on his stomach. Hastried heat and OTC naproxen which did improve his pain. Denies swelling, redness, bruising, lockingup, catching, giving out, fever/chills. Past medical history, appointments, medications, allergies reviewed. Previous Medical History PAST MEDICAL HISTORY Diagnosis Date Actinic keratosis CAD (coronary artery disease) Dr. Rodriguez CHF (congestive heart failure) ([facility]) EF 40% 04/2022 Chronic right shoulder pain Diverticulosis of colon (without mention of hemorrhage) Myocardial infarction ([facility]) 07/31/2004 TPA, resolution w/o damage. Obesity (BMI 30.0-34.9) Obstructive sleep apnea [facility] f[place] [phone] Other and unspecified hyperlipidemia Prediabetes Unspecified sleep apnea uses C-pap Previous Surgical History PAST SURGICAL HISTORY Procedure Laterality Date COLONOSCOPY FLX DX W/COLLJ SPEC WHEN PFRMD 11/16/09 COLONOSCOPY FLX DX W/COLLJ SPEC WHEN PFRMD 03/27/2020 Colonoscopy HEART SURGERY HX PAST SURGICAL HISTORY OF 07/31/2004 CABG x 6 [facility] PAST SURGICAL HISTORY OF 04/03/1998, Jah , Stent placements single,single,four PAST SURGICAL HISTORY OF 09/20/12 right achilles tendon surgery x 2 PAST SURGICAL HISTORY OF 12/01/12 left pinky finger SIGMOIDOSCOPY FLX DX W/COLLJ SPEC BR/WA IF PFRMD Sigmoidoscopy [facility] Family History FAMILY HISTORY Problem Relation Age of Onset Stroke Mother suspected Asthma Father Heart Attack Brother Cancer Brother Patient Allergies ALLERGIES Allergen Reactions Cats Cough, Anaphylaxis Contrast Dye Itching Dogs Cough Pollen Cough Current Medications Current Outpatient Medications on File Prior to Visit Medication Sig ramipril (ALTACE) 5 mg capsule Take 1 capsule by mouth once daily. carvedilol (COREG) 6.25 mg tablet Take 1 tablet by mouth twice daily with meals. nitroglycerin sublingual (NITROQUICK) 0.4 mg SL tablet Dissolve 1 tablet under the tongue every 5 minutes as needed for chest pain. rosuvastatin (CRESTOR) 20 mg tablet Take 1 tablet by mouth once daily. vit A/vit C/vit E/zinc/copper (OCUVITE PRESERVISION ORAL) Take 1 tablet by mouth twice daily. fluticasone (FLONASE) 50 mcg/actuation nasal spray Use 2 Sprays in each nostril once daily. Rinse mouth after use. multivitamin tablet Take 1 tablet by mouth once daily. COMPOUNDED PRESCRIPTION CPAP mask of patient choice and supplies as needed. Dx 780.57 aspirin(ECOTRIN LOW STRENGTH 81 MG TAB) Take one(1) tablet daily. simethicone (GAS-X ORAL) Take by mouth. No current facility-administered medications on file prior to visit. Social History Social History Tobacco Use Smoking status: Never Smokeless tobacco: Never Vaping Use Vaping Use: Never used Substance Use Topics Alcohol use: Yes Alcohol/week: 1.0 standard drink of alcohol Types: 1 Cans of Beer (12oz) per week Drug use: No Review of Symptoms REVIEW OF SYSTEMS See HPI EXAM: BP 122/70 Pulse 72 Resp 16 Ht 175.3 cm (5' 9") Wt 93.9 kg (207 lb) BMI 30.57 kg/m General Appearance: Well appearing, alert, in no acute distress, well-hydrated, well nourished.. Skin: Skin color, texture, turgor normal, no suspicious rashes or lesions. Lungs: Lungs clear to auscultation. No wheezing, rhonchi, rales.. KNEE:Location: Left Redness: No. Warmth: No. Crepitus: Yes. Effusion: No. Joint line tenderness: No. Lateral tenderness: No. Medial tenderness: No. Drawer sign negative: Yes. Medial or lateral laxity: No. Adrienne's sign: No. Health Maintenance List Advance Directive Discussion Never done Depression Assessment Never done LDL Cholesterol due on 02/25/2024 Annual PCP Team Chronic Disease Visit due on 02/25/2024 Diabetes Screening due on 02/24/2026 DTaP,Tdap,Td Vaccine(3 - Td or Tdap) due on 02/05/2028 Lipid Screening due on 02/25/2028 Colorectal Cancer Screening due on 03/27/2030 Influenza Vaccine Completed RSV Vaccine Completed Hepatitis C Screening Completed Shingrix Vaccine Completed Covid-19 Vaccine Completed Pneumococcal Vaccine: 65+ Completed ASSESSMENT/PLAN: 1. Acute pain of left knee - ICD9: 719.46, ICD10: M25.562 Suspect OA. Normal exam today. Obtain xray to confirm. Discussed home care with ice/heat, OTC tylenol, and refer to PT. Red flags for re-assessment reviewed with patient in detail. - XR KNEE GENERAL 4V AP BOTH/PA BOTH/LAT/MERC LEFT - CONSULT TO PHYSICAL THERAPY Leandro Haines MD documented in this encounterWayne [facility]10-03-2023 History of Present illness Narrative* Odilia Roa LPN - 07/14/2023 10:51 AM EDT Patient presents for Flu and Covid vaccines. Denies any problems at this time. Tolerated injectionswell. Odilia Roa LPN documented in this encounterWayne Healthcare [facility] Campus09-25-2023 Miscellaneous Notes* Telephone Encounter - Leandro Haines MD - 07/06/2023 1:18 PM EDT Order signed and placed in outbox. Please fax back. * Telephone Encounter - Emelyn Jackson LPN - 07/06/2023 12:55 PM EDT Replacement supply request form placed on PCP's desk. documented in this [facility]03-22-2023 Instructions* Patient Instructions* Amilcar Gutiérrez - 12/31/2022 2:19 PM EDT Try hammertoe pad during the day. Be sure to only pull so that the device stays on. Do not overtighten as overtightening can lead to blister If pain fails to improve, call for follow-up documented in this [facility]03-22-2023 History of Present illness Narrative* Amilcar Gutiérrez - 12/31/2022 2:07 PM EDT Images from the original note were not included. Chief Complaint: This 77 year old male who presents with chief complaint:right 2nd toe pain HPI Patient presents to clinic for evaluation of right foot. Patient states that last week, he developed sudden pain in his right 2nd toe that was keeping him up at night. He treated the pain with tylenol and that did help with his pain. He has had the pain since. Patient made this appointment because he is leaving town and wants to make sure the pain doesn't happen again. PAIN EVALUATION 12/29/20222123 Pain Level: 4 Pain Location: Toe Description: Aching;Pressure;Sore Duration Amount of Time: 10 Duration Units: Minutes Frequency: Intermittent Intervention/Comfort measure: Reposition;Other: See comment Comments: Bandaid Hemoglobin A1C (%) Date Value 06/24/2021 5.5 11/26/2020 5.6 04/20/2020 5.6 06/24/2019 5.9 09/22/2018 5.9 PCP: Leandro Haines MD PAST MEDICAL HISTORY Diagnosis Date Actinic keratosis CAD (coronary artery disease) Dr. Rodriguez CHF (congestive heart failure) ([facility]) EF 40% 04/2022 Chronic right shoulder pain Diverticulosis of colon (without mention of hemorrhage) Myocardial infarction ([facility]) 07/31/2004 TPA, resolution w/o damage. Obesity (BMI 30.0-34.9) Obstructive sleep apnea [facility] [place] [phone] Other and unspecified hyperlipidemia Prediabetes Unspecified sleep apnea uses C-pap Current Outpatient Medications Medication Sig ramipril (ALTACE) 5 mg capsule Take 1 capsule by mouth once daily. carvedilol (COREG) 6.25 mg tablet Take 1 tablet by mouth twice daily with meals. nitroglycerin sublingual (NITROQUICK) 0.4 mg SL tablet Dissolve 1 tablet under the tongue every 5 minutes as needed for chest pain. rosuvastatin (CRESTOR) 20 mg tablet Take 1 tablet by mouth once daily. vit A/vit C/vit E/zinc/copper (OCUVITE PRESERVISION ORAL) Take 1 tablet by mouth twice daily. fluticasone (FLONASE) 50 mcg/actuation nasal spray Use 2 Sprays in each nostril once daily. Rinse mouth after use. multivitamin tablet Take 1 tablet by mouth once daily. COMPOUNDED PRESCRIPTION CPAP mask of patient choice and supplies as needed. Dx 780.57 aspirin(ECOTRIN LOW STRENGTH 81 MG TAB) Take one(1) tablet daily. simethicone (GAS-X ORAL) Take by mouth. (Patient not taking: Reported on 12/31/2022) No current facility-administered medications for this visit. ALLERGIES Allergen Reactions Cats Cough, Anaphylaxis Contrast Dye Itching Dogs Cough Pollen Cough PAST SURGICAL HISTORY Procedure Laterality Date COLONOSCOPY FLX DX W/COLLJ SPEC WHEN PFRMD 11/16/09 COLONOSCOPY FLX DX W/COLLJ SPEC WHEN PFRMD 03/27/2020 Colonoscopy HEART SURGERY HX PAST SURGICAL HISTORY OF 07/31/2004 CABG x 6 [facility] PAST SURGICAL HISTORY OF 04/03/1998, Jah , Stent placements single,single,four PAST SURGICAL HISTORY OF 09/20/12 right achilles tendon surgery x 2 PAST SURGICAL HISTORY OF 12/01/12 left pinky finger SIGMOIDOSCOPY FLX DX W/COLLJ SPEC BR/WA IF PFRMD Sigmoidoscopy [facility] FAMILY HISTORY Problem Relation Age of Onset Stroke Mother suspected Asthma Father Heart Attack Brother Cancer Brother Social History Tobacco Use Smoking status: Never Smokeless tobacco: Never Vaping Use Vaping Use: Never used Substance Use Topics Alcohol use: Yes Alcohol/week: 1.0 standard drink Types: 1 Cans of Beer (12oz) per week Drug use: No REVIEW OF SYSTEMS GENERAL: Negative for Malaise, significant weight loss, fever RESPIRATORY: Negative for cough, wheezing and shortness of breath CARDIOVASCULAR: Negative for chest pain, leg swelling and palpitations GI: Negative for abdominal discomfort, blood in stools or black stools and change in bowel habits : Negative for dysuria, frequency and incontinence MUSCULOSKELETAL: Negative for joint pain or swelling, back pain, and muscle pain. SKIN: Negative for lesions, rash, and itching. HEMATOLOGY/LYMPHOLOGY Negative for prolonged bleeding, bruising easily, and swollen nodes. ENDOCRINE: Negative for cold or heat intolerance, polyuria, polydipsia and goiter. NEURO: negative Physical Exam: Constitutional: Pt is a well developed 77 year old male who is alert, oriented and cooperative Eyes: Following during examination. No redness or drainage. Respiratory: RR normal and nonlabored. Even breathing. No evidence of distress or shortness of breath. Psychology: Patient is engaged during conversation. Normal affect and mood. Does not appear depressed or anxious during encounter. Vascular: Dorsalis pedis and posterior tibial pulses palpable as b/l Capillary Fill time < 5 seconds to digits 1-5 b/l Skin temperature warm to warm proximal to distal b/l Hair growth present to digits Neurological: intact light touch/epicritic sensation b/l intact protective sensation no significant neurological deficits Dermatological: No open wounds are noted to b/l feet. Callus is present to right 2nd toe distal tuft. No ulcerationnoted. Webspaces clean and dry 1-4 b/l. Musculoskeletal/Orthopaedic: Patient has pain to palpation of right 2nd toe distal tuft Hammertoe is present to b/l 2nd and 3rd toe. Radiographs: n/a ASSESSMENT: (M20.41) Hammertoe of right foot (primary encounter diagnosis) PLAN: 1. History and physical examination performed. 2. Discussed pain in right 2nd toe. He has hammertoe of b/l 2nd and 3rd toe and this will lead to increased pressure on distal tuft. It can also lead to callus formation and if that were to progress,ulceration. 3. Recommend he try hammertoe pad to help eliminate pressure to distal tuft. 4. Small callus recuced with dremmel. 5. F/u prn Amilcar Gutiérrez DPM Podiatry [address] [facility] [address] Dept: [phone] Dept * Stephanie Carrasco LPN - 12/31/2022 1:51 PM EDT AMB ROOMING INTAKE FLOWSHEET DATA Pain Pain Level: 4 Pain Location: Toe Description: Aching, Pressure, Sore Duration Amount of Time: 10 Duration Units: Minutes Frequency: Intermittent Intervention/Comfort measure: Reposition, Other: See comment Comments: Bandaid Patient presents with: Right Great Toe - Ingrown Toenail, nail deformity , Pain, Established Patient, Follow Up Left Foot - Established Patient, Follow Up, Pain Stephanie Carrasco LPN documented in this encounterWay[facility]03-03-2023 Miscellaneous Notes* Telephone Encounter - Renetta Garcia RN - 12/12/2022 10:34 AM EST Call placed to patient and reviewed provider message. Patient verbalizes understanding. Patient with no symptoms and slight cough ended Thursday. Patient would not be candidate for anti-viral medication at this time. Renetta Garcia RN * Telephone Encounter - Leandro Haines MD - 12/12/2022 9:45 AM EST Reviewed. Patient is considered higher risk and would be a candidate for anti- viral such as Paxlovid or Lagevrio. Would have to start this within 5 days of symptoms and would need VV to discuss. Recommend rest, supportive care, and should isolate until: At least 5 days have passed since symptoms first appeared and At least 24 hours have passed since last fever without the use of fever-reducing medications and Symptoms (e.g., cough, shortness of breath) have improved. Should wear mask for at least 5 days after he ends isolation to prevent spread to others. * Telephone Encounter - Renetta Garcia RN - 12/12/2022 9:37 AM EST Patient calls to let provider know that he tested positive for Covid 19 yesterday 12/11/2022 on an athome test. Tested d/t being positive. No symptoms currently. Had minor cough for a couple days that ended on Thursday. Reviewed quarantine and care advice. Patient verbalizes understanding. Fully vaccinated. Not requesting anti-viral. Just wanted to update provider. Renetta Garcia RN documented in this [facility] Miscellaneous Notes* Telephone Encounter - Emelyn Jackson LPN - 10/21/2022 3:16 PM EST Patient replied in another myChart message with fax #- order forwarded as requested. * Telephone Encounter - Leandro Haines MD - 10/21/2022 10:09 AM EST Rx printed. Patient needs to get fax number from [employer] so we can fax them the order. documented in this [facility]22 History of Present illness Narrative* Leandro Haines MD - 07/16/2022 11:26 AM EDT Chief Complaint Patient presents with: Ear Problem: Wax build up Left ear HPI Marisabel Reynoso is a 76 year old male who presents here today for Above Complaints.. Patient saw banquet director about 3 weeks ago and was told he had wax in his left ear which needs cleaned out. Has not treated at home, but has debrox drops. Denies pain/drainage. Has hearing loss and wears hearing aids. Also notes that he had echo 2 days ago to follow up on his EF 40% and mild LV hypokinesis. States new Echo did not change. Switched atenolol to carvedilol and increased his Ramipril to 5 mg. Has follow up appointment with Dr. Jennifer STEVENS. Past medical history, appointments, medications, allergies reviewed. Previous Medical History PAST MEDICAL HISTORY Diagnosis Date Actinic keratosis CAD (coronary artery disease) Dr. Rodriguez Chronic right shoulder pain Diverticulosis of colon (without mention of hemorrhage) Myocardial infarction (HCC) 07/31/2004 TPA, resolution w/o damage. Obesity (BMI 30.0-34.9) Obstructive sleep apnea [facility] fx [phone] Other and unspecified hyperlipidemia Prediabetes Unspecified sleep apnea uses C-pap Previous Surgical History PAST SURGICAL HISTORY Procedure Laterality Date COLONOSCOPY FLX DX W/COLLJ SPEC WHEN PFRMD 11/16/09 COLONOSCOPY FLX DX W/COLLJ SPEC WHEN PFRMD 03/27/2020 Colonoscopy HEART SURGERY HX PAST SURGICAL HISTORY OF 07/31/2004 CABG x 6 [facility] PAST SURGICAL HISTORY OF 04/03/1998, Jah , Stent placements single,single,four PAST SURGICAL HISTORY OF 09/20/12 right achilles tendon surgery x 2 PAST SURGICAL HISTORY OF 12/01/12 left pinky finger SIGMOIDOSCOPY FLX DX W/COLLJ SPEC BR/WA IF PFRMD Sigmoidoscopy [facility] Family History FAMILY HISTORY Problem Relation Age of Onset Stroke Mother suspected Asthma Father Heart Attack Brother Cancer Brother Patient Allergies ALLERGIES Allergen Reactions Cats Cough, Anaphylaxis Contrast Dye Itching Dogs Cough Pollen Cough Current Medications Current Outpatient Medications on File Prior to Visit Medication Sig nitroglycerin sublingual (NITROQUICK) 0.4 mg SL tablet Dissolve 1 tablet under the tongue every 5 minutes as needed for chest pain. rosuvastatin (CRESTOR) 20 mg tablet Take 1 tablet by mouth once daily. vit A/vit C/vit E/zinc/copper (OCUVITE PRESERVISION ORAL) Take 1 tablet by mouth twice daily. simethicone (GAS-X ORAL) Take by mouth. fluticasone (FLONASE) 50 mcg/actuation nasal spray Use 2 Sprays in each nostril once daily. Rinse mouth after use. multivitamin tablet Take 1 tablet by mouth once daily. COMPOUNDED PRESCRIPTION CPAP mask of patient choice and supplies as needed. Dx 780.57 ATENOLOL 25 MG TAB Take one(1) tablet daily. aspirin(ECOTRIN LOW STRENGTH 81 MG TAB) Take one(1) tablet daily. RAMIPRIL 1.25 MG CAP Take one(1) tablet daily. No current facility-administered medications on file prior to visit. Social History Social History Tobacco Use Smoking status: Never Smokeless tobacco: Never Vaping Use Vaping Use: Never used Substance Use Topics Alcohol use: Yes Alcohol/week: 1.0 standard drink Types: 1 Cans of Beer (12oz) per week Drug use: No Review of Symptoms REVIEW OF SYSTEMS See HPI EXAM: BP 118/70 Pulse 80 Resp 14 Wt 93 kg (205 lb) BMI 30.06 kg/m General Appearance: Well appearing, alert, in no acute distress, well-hydrated, well nourished.. Ears: Negative findings: external ears normal to inspection and palpation, Positive findings: cerumen bilaterally, amount Moderate. Health Maintenance List ADVANCE DIRECTIVE DISCUSSION Never done DEPRESSION ASSESSMENT Never done INFLUENZA(1) due on 06/12/2022 LDL CHOLESTEROL due on 06/24/2022 ANNUAL PCP TEAM CHRONIC DISEASE VISIT due on 01/22/2023 DIABETES SCREEN due on 06/24/2024 LIPID SCREEN due on 06/24/2026 DTAP,TDAP,TD(3 - Td or Tdap) due on 02/05/2028 COLORECTAL CANCER SCREENING due on 03/27/2030 HEPATITIS C SCREENING Completed SHINGRIX VACCINE Completed COVID-19 VACCINE Completed PNEUMOCOCCAL: 65+ Completed ASSESSMENT/PLAN: 1. Bilateral impacted cerumen - ICD9: 380.4, ICD10: H61.23 (primary diagnosis) Mild improvement with irrigation. TMs normal after irrigation. Treat with debrox drops x4 days and call next week if wax does not drain and - AMBULATORY EAR LAVAGE/IRRIGATION 2. CAD (coronary artery disease) - ICD9: 414.00, ICD10: I25.10 Stable symptoms. Obtain records from cardiology. Meds updated. Continue current regimen. 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 Work Phone: Evaluation noteNo assessment information available [facility] Work Phone: Evaluation note* Diagnosis Bilateral impacted cerumen- Primary Impacted cerumen Coronary artery disease involving zuni heart without angina pectoris, unspecified vessel or lesion type documented in this encounter [facility] note* Diagnosis Obstructive sleep apnea syndrome- Primary Obstructive sleep apnea (adult) (pediatric) documented in this encounter [facility] note* Diagnosis Hammertoe of right foot- Primary documented in this encounter [facility] note* Diagnosis Need for vaccination- Primary Need for prophylactic vaccination and inoculation against unspecified single disease Need for influenza vaccination Need for prophylactic vaccination and inoculation against influenza [facility] Diagnosis Acute pain of left knee- Primary [facility]* Diagnosis Acute pain of left knee- Primary [facility] Diagnosis Acute pain of left knee- Primary [facility]* Diagnosis Acute pain of left knee- Primary [facility]* Diagnosis Seborrheic keratosis- Primary Other seborrheic keratosis [facility]* Diagnosis Actinic keratosis- Primary S/P cryotherapy of skin lesion [facility]* Diagnosis Fall in home, initial encounter- Primary Contusion of left knee, initial encounter [facility]* Diagnosis Medicare annual wellness visit, subsequent- Primary Routine general medical examination at a health care facility HOSSEIN on CPAP Obstructive sleep apnea (adult) (pediatric) Encounter for immunization Need for other specified prophylactic vaccination against single bacterial disease [facility]* Diagnosis Hyperglycemia- Primary Other abnormal glucose [facility]* Diagnosis Acute pain of left knee documented [facility]* Diagnosis Hyperlipidemia, unspecified hyperlipidemia type- Primary Palpitations HOSSEIN on CPAP Obstructive sleep apnea (adult) (pediatric) Prediabetes Other abnormal glucose Coronary artery disease involving zuni coronary artery of zuni heart without angina pectoris Chronic systolic congestive heart failure (HCC) Chronic systolic heart failure Frequent falls Personal history of fall [facility]* Diagnosis Neck pain- Primary Cervicalgia [facility]* Diagnosis Neck pain- Primary Cervicalgia Muscle tension pain [facility] Diagnosis Preop examination- Primary Preoperative examination, unspecified [facility]* Diagnosis HOSSEIN on CPAP- Primary Obstructive sleep apnea (adult) (pediatric) documented [facility]* Diagnosis Concern about memory- Primary Mild cognitive impairment Mild cognitive impairment, so stated Episodic lightheadedness Dizziness and giddiness Hyperlipidemia, unspecified hyperlipidemia type Encounter for examination for driving license Other general medical examination for administrative purposes documented in this encounter [facility] for referral (narrative)* Diagnostic Procedure Only (Routine) - Closed Specialty Diagnoses / Procedures Referred By Luz t Referred To Contact XR IMAGING Diagnoses Acute pain of left knee Procedures XR KNEE GENERAL 4V AP BOTH/PA BOTH/LAT/MERC LEFT RADIOLOGIC EXAM KNEE COMPLETE 4/MORE VIEWS Leandro Haines MD [address] [place] [address] [place] [address] Referral ID Status Reason Start Date Expiration Date V isits Requested Visits Authorized [id number] Closed Auto-Generate d Referral 08/12/2023 09/10/2024 1 1 [facility] for referral (narrative)* Outpatient Procedure (Routine) - New Request Specialty Diagnoses / Procedures Referred By Luz Referred To [facility] Diagnoses Palpitations Procedures ECG COMPLETE ECG ROUTINE ECG W/LEAST 12 LDS W/I&R PodlogAnita garcia APRN.CNP [address] [place] [address] [facility] [address] [facility] [place] [address] Referral ID Status Reason Start Date Expiration Date Visits Requested Visits Authorized [id number] New Request Auto-Generat ed Referral 09/07/2025 1 1 [facility] for referral (narrative)No reason for referral information availableWOhio[facility] Work Phone: Recgwa for visit Narrative* Diagnostic Procedure Only (Routine) - Closed Specialty Diagnoses / Procedures Referred By Leahac t Referred To Contact XR IMAGING Diagnoses Acute pain of left knee Procedures XR KNEE GENERAL 4V AP BOTH/PA BOTH/LAT/MERC LEFT RADIOLOGIC EXAM KNEE COMPLETE 4/MORE VIEWS Leandro Haines MD [address] [place] [address] [place] [address] Referral ID Status Reason Start Date Expiration Date V isits Requested Visits Authorized [id number] Closed Auto-Generate d Referral 08/12/2023 09/10/2024 1 1 [facility] Chief Complaint and Reason for Visit Chief Complaint E-ORDER Chief Complaint E-ORDER 1 Y FU cad cad S/P CABG Reason for Visit Essential (primary) hypertension H/O coronary artery bypass surgery Hyperlipidemia Chief Complaint cad cad S/P CABG INCREASED COREG CARDIOMYOPATHY Chief Complaint Admit Date confusion,possible drug interaction Dece [facility] 2023 3:36pm E-ORDER December 09, 2024 8:47am Chief Complaint Admit Date INT LAB S May 12, 2025 9:4 8am Chief Complaint Admit Date INT LAB S May 12, 2025 9:4 8am 1 Y FU June 29, 2025 1:53pm Reason for Visit Admit Date Essential (primary) hypertension Septemb er 2024 1:53pm H/O coronary artery bypass surgery Septe er 2024 1:53pm Hyperlipidemia June 29, 2025 1:53pm Family History No Family History Records Found Relationship Condition Age at Onset Recorded Date/T clemencia brother Myocardial infarction Unknown mother Myocardial infarction Unknown Advance Directives No Advanced Directives Records Found Advance Directive Response Recorded Date/ Time Living Will Yes October 18 5:20pm Power of Finance Intern Yes October 18 020 5:20pm Documents on File Type Date Recorded Patient Policy Adviser Expl anation Advance Directive(s) 03/27/2020 9:07 AM Advance Directive(s) 03/09/2020 12:50 PM w ooster Advance Directive(s) 08/13/2017 2:38 PM Documents on File Type Date Recorded Patient Policy Adviser Expl anation Advance Directive(s) 08/13/2017 2:38 PM Documents on File Type Date Recorded Patient Policy Adviser Expl anation Advance Directive(s) 08/13/2017 2:38 PM Advance Directive Response Recorded Date/ Time Living Will Yes October 08, 2 024 5:22pm Power of Finance Intern Yes October 08, 2024 5:22pm Name of Medical Power of Finance Intern rhonda Balderrama October 08, 2024 5:22pm Advance Directive Response Recorded Date/ Time Living Will Yes October 18 5:20pm Do you have a Healthcare Power of Finance Intern? Yes October 18, 2019 5:20pm Reason for Referral Specialty Diagnoses / Procedures Referred By Contac t Referred To Contact [facility] Diagnoses Acute pain of left knee Procedures CONSULT TO PHYSICAL THERAPY PHYSICAL THERAPY EVALUATION HIGH COMPLEX 45 MINS Leandro Haines MD [address] [place] [address] [facility] [address] [place] [address] Referral ID Status Reason Start Date Expiration Date Visits Requested Visits Authorized [id number] Pending Review Auto-Generat ed Referral 08/12/2023 08/11/2024 1 1 Specialty Diagnoses / Procedures Referred By Contac t Referred To Contact XR IMAGING Diagnoses Acute pain of left knee Procedures XR KNEE GENERAL 4V AP BOTH/PA BOTH/LAT/MERC LEFT RADIOLOGIC EXAM KNEE COMPLETE 4/MORE VIEWS Leandro Haines MD [address] [place] [address] [place] [address] Referral ID Status Reason Start Date Expiration Date V isits Requested Visits Authorized [id number] Closed Auto-Generate d Referral 08/12/2023 09/10/2024 1 1 Summary Purpose Additional Source Comments Goals (unrecognized section and content) Goals may be documented in a n alternate sectionGoals may be documented in an alternate sectionGoals may be documented in an alternate sectionGoals may be documented in an alternate sectionGoals may be documented in an alternate sectionGoals may be documented in an alternate section Source Comments (unrecognize d section and content) In the event this informatio n is protected by the Federal Confidentiality of Alcohol and Drug Abuse Patient Records regulations: The Federal rules restrict any use of the information to criminally investigate or prosecute any alcohol or drug abuse patient.[facility] CampusIn the event this information is protected by the Federal Confidentiality of Alcohol and Drug Abuse Patient Records regulations: The Federal rules restrict any use of the information to criminally investigate or prosecute any alcohol or drug abuse patient.[facility] CampusIn the event this information is protected by the Federal Confidentiality of Alcohol and Drug Abuse Patient Records regulations: The Federal rules restrict any use of the information to criminally investigate or prosecute any alcohol or drug abuse patient.[facility] CampusIn the event this information is protected by the Federal Confidentiality of Alcohol and Drug Abuse Patient Records regulations: The Federal rules restrict any use of the information to criminally investigate or prosecute any alcohol or drug abuse patient.[facility] CampusIn the event this information is protected by the Federal Confidentiality of Alcohol and Drug Abuse Patient Records regulations: The Federal rules restrict any use of the information to criminally investigate or prosecute any alcohol or drug abuse patient.[facility] CampusIn the event this information is protected by the Federal Confidentiality of Alcohol and Drug Abuse Patient Records regulations: The Federal rules restrict any use of the information to criminally investigate or prosecute any alcohol or drug abuse patient.[facility] CampusIn the event this information is protected by the Federal Confidentiality of Alcohol and Drug Abuse Patient Records regulations: The Federal rules restrict any use of the information to criminally investigate or prosecute any alcohol or drug abuse patient.[facility] CampusIn the event this information is protected by the Federal Confidentiality of Alcohol and Drug Abuse Patient Records regulations: The Federal rules restrict any use of the information to criminally investigate or prosecute any alcohol or drug abuse patient.[facility] CampusIn the event this information is protected by the Federal Confidentiality of Alcohol and Drug Abuse Patient Records regulations: The Federal rules restrict any use of the information to criminally investigate or prosecute any alcohol or drug abuse patient.[facility] CampusIn the event this information is protected by the Federal Confidentiality of Alcohol and Drug Abuse Patient Records regulations: The Federal rules restrict any use of the information to criminally investigate or prosecute any alcohol or drug abuse patient.[facility] CampusIn the event this information is protected by the Federal Confidentiality of Alcohol and Drug Abuse Patient Records regulations: The Federal rules restrict any use of the information to criminally investigate or prosecute any alcohol or drug abuse patient.[facility] CampusIn the event this information is protected by the Federal Confidentiality of Alcohol and Drug Abuse Patient Records regulations: The Federal rules restrict any use of the information to criminally investigate or prosecute any alcohol or drug abuse patient.[facility] CampusIn the event this information is protected by the Federal Confidentiality of Alcohol and Drug Abuse Patient Records regulations: The Federal rules restrict any use of the information to criminally investigate or prosecute any alcohol or drug abuse patient.[facility] CampusIn the event this information is protected by the Federal Confidentiality of Alcohol and Drug Abuse Patient Records regulations: The Federal rules restrict any use of the information to criminally investigate or prosecute any alcohol or drug abuse patient.[facility] CampusIn the event this information is protected by the Federal Confidentiality of Alcohol and Drug Abuse Patient Records regulations: The Federal rules restrict any use of the information to criminally investigate or prosecute any alcohol or drug abuse patient.[facility] CampusIn the event this information is protected by the Federal Confidentiality of Alcohol and Drug Abuse Patient Records regulations: The Federal rules restrict any use of the information to criminally investigate or prosecute any alcohol or drug abuse patient.[facility] CampusIn the event this information is protected by the Federal Confidentiality of Alcohol and Drug Abuse Patient Records regulations: The Federal rules restrict any use of the information to criminally investigate or prosecute any alcohol or drug abuse patient.[facility] CampusIn the event this information is protected by the Federal Confidentiality of Alcohol and Drug Abuse Patient Records regulations: The Federal rules restrict any use of the information to criminally investigate or prosecute any alcohol or drug abuse patient.[facility] CampusIn the event this information is protected by the Federal Confidentiality of Alcohol and Drug Abuse Patient Records regulations: The Federal rules restrict any use of the information to criminally investigate or prosecute any alcohol or drug abuse patient.[facility] CampusIn the event this information is protected by the Federal Confidentiality of Alcohol and Drug Abuse Patient Records regulations: The Federal rules restrict any use of the information to criminally investigate or prosecute any alcohol or drug abuse patient.[facility] CampusIn the event this information is protected by the Federal Confidentiality of Alcohol and Drug Abuse Patient Records regulations: The Federal rules restrict any use of the information to criminally investigate or prosecute any alcohol or drug abuse patient.[facility] CampusIn the event this information is protected by the Federal Confidentiality of Alcohol and Drug Abuse Patient Records regulations: The Federal rules restrict any use of the information to criminally investigate or prosecute any alcohol or drug abuse patient.[facility] CampusIn the event this information is protected by the Federal Confidentiality of Alcohol and Drug Abuse Patient Records regulations: The Federal rules restrict any use of the information to criminally investigate or prosecute any alcohol or drug abuse patient.[facility] CampusIn the event this information is protected by the Federal Confidentiality of Alcohol and Drug Abuse Patient Records regulations: The Federal rules restrict any use of the information to criminally investigate or prosecute any alcohol or drug abuse patient.[facility] CampusIn the event this information is protected by the Federal Confidentiality of Alcohol and Drug Abuse Patient Records regulations: The Federal rules restrict any use of the information to criminally investigate or prosecute any alcohol or drug abuse patient.[facility] CampusIn the event this information is protected by the Federal Confidentiality of Alcohol and Drug Abuse Patient Records regulations: The Federal rules restrict any use of the information to criminally investigate or prosecute any alcohol or drug abuse patient.[facility] CampusIn the event this information is protected by the Federal Confidentiality of Alcohol and Drug Abuse Patient Records regulations: The Federal rules restrict any use of the information to criminally investigate or prosecute any alcohol or drug abuse patient.[facility] CampusIn the event this information is protected by the Federal Confidentiality of Alcohol and Drug Abuse Patient Records regulations: The Federal rules restrict any use of the information to criminally investigate or prosecute any alcohol or drug abuse patient.[facility] CampusIn the event this information is protected by the Federal Confidentiality of Alcohol and Drug Abuse Patient Records regulations: The Federal rules restrict any use of the information to criminally investigate or prosecute any alcohol or drug abuse patient.[facility] CampusIn the event this information is protected by the Federal Confidentiality of Alcohol and Drug Abuse Patient Records regulations: The Federal rules restrict any use of the information to criminally investigate or prosecute any alcohol or drug abuse patient.[facility] CampusIn the event this information is protected by the Federal Confidentiality of Alcohol and Drug Abuse Patient Records regulations: The Federal rules restrict any use of the information to criminally investigate or prosecute any alcohol or drug abuse patient.[facility] CampusIn the event this information is protected by the Federal Confidentiality of Alcohol and Drug Abuse Patient Records regulations: The Federal rules restrict any use of the information to criminally investigate or prosecute any alcohol or drug abuse patient.[facility] CampusIn the event this information is protected by the Federal Confidentiality of Alcohol and Drug Abuse Patient Records regulations: The Federal rules restrict any use of the information to criminally investigate or prosecute any alcohol or drug abuse patient.[facility] Care Teams (unrecognized sec tion and content) Blue Line Trimmer Relationship Specialty Start Date End Date Leandro Haines MD [address] [place] [address] PCP - General Family Practice 03/29/18 Blue Line Trimmer Relationship Specialty Start Date End Date Leandro Haines MD [address] [place] [address] PCP - General Family Medicine 03/29/18 Blue Line Trimmer Relationship Specialty Start Date End Date Leandro Haines MD [address] [place] [address] PCP - General Family Medicine 03/29/18 Blue Line Trimmer Relationship Specialty Start Date End Date Leandro Haines MD [address] [place] [address] PCP - General Family Medicine 03/29/18 Blue Line Trimmer Relationship Specialty Start Date End Date Leandro Haines MD [address] [place] [address] PCP - General Family Medicine 03/29/18 Blue Line Trimmer Relationship Specialty Start Date End Date Leandro Haines MD [address] [place] [address] PCP - General Family Medicine 03/29/18 Blue Line Trimmer Relationship Specialty Start Date End Date Leandro Haines MD [address] [place] [address] PCP - General Family Medicine 03/29/18 Blue Line Trimmer Relationship Specialty Start Date End Date Leandro Haines MD [address] [place] [address] PCP - General Family Medicine 03/29/18 Blue Line Trimmer Relationship Specialty Start Date End Date Leandro Haines MD [address] [place] [address] PCP - General Family Medicine 03/29/18 Blue Line Trimmer Relationship Specialty Start Date End Date Leandro Haines MD [address] [place] [address] PCP - General Family Medicine 03/29/18 Blue Line Trimmer Relationship Specialty Start Date End Date Leandro Haines MD [address] [place] [address] PCP - General Family Medicine 03/29/18 Blue Line Trimmer Relationship Specialty Start Date End Date Leandro Haines MD [address] [place] [address] PCP - General Family Medicine 03/29/18 Blue Line Trimmer Relationship Specialty Start Date End Date Leandro Haines MD [address] [place] [address] PCP - General Family Medicine 03/29/18 Blue Line Trimmer Relationship Specialty Start Date End Date Leandro Haines MD [address] [place] [address] PCP - General Family Medicine 03/29/18 Blue Line Trimmer Relationship Specialty Start Date End Date Leandro Haines MD [address] [place] [address] PCP - General Family Medicine 03/29/18 Blue Line Trimmer Relationship Specialty Start Date End Date Leandro Haines MD [address] [place] [address] PCP - General Family Medicine 03/29/18 Blue Line Trimmer Relationship Specialty Start Date End Date Leandro Haines MD [address] [place] [address] PCP - General Family Medicine 03/29/18 Blue Line Trimmer Relationship Specialty Start Date End Date Leandro Haines MD [address] [place] [address] PCP - General Family Medicine 03/29/18 Blue Line Trimmer Relationship Specialty Start Date End Date Leandro Haines MD [address] [place] [address] PCP - General Family Medicine 03/29/18 PodlogarAnita APRN.THERMITE WELDER [address] [place] [address] Director Prison Family Medicine 09/17/24 Blue Line Trimmer Relationship Specialty Start Date End Date Leandro Haines MD [address] [place] [address] PCP - General Family Medicine 03/29/18 PodlogarAnita APRN.THERMITE WELDER [address] [place] [address] Director Prison Family [facility] 09/17/24 Blue Line Trimmer Relationship Specialty Start Date End Date Leandro Haines MD [address] [place] [address] PCP - General Family Medicine 03/29/18 Podlogar, Anita, REHAB DIRECTOR OCCUPATIONAL THERAPIST.THERMITE WELDER [address] [place] [address] Director Prison Family [facility] 09/17/24 Team Status: Active Member Role Status Dates Dr. Danie Haines MD Family Provider Active Dr. Danie Haines MD Primary Care Provider Acti ve Team Status: Inactive Member Role Status Dates Dr. Danie Haines MD Primary Care Provider Acti ve Start: October 08, 2024 End: October 08, 2024 Dr. Monica Neil DO Attending Provider Active Start: October 08, 2024 End: October 08, 2024 Dr. Monica Neil DO Emergency Provider Active Start: October 08, 2024 End: October 08, 2024 Team Status: Inactive Member Role Status Dates Dr. Danie Haines MD Primary Care Provider Acti ve Start: December 09, 2024 End: December 09, 2024 Dr. Shai Rodriguez MD Attending Provider Active S tart: December 09, 2024 End: December 09, 2024 Dr. Shai Rodriguez MD Referring Provider Active S tart: December 09, 2024 End: December 09, 2024 Blue Line Trimmer Relationship Specialty Start Date End Date Leandro Haines MD [address] [place], [place] [id number] PCP - General Family Medicine 03/29/18 Podlogar, Anita, REHAB DIRECTOR OCCUPATIONAL THERAPIST.THERMITE WELDER [address] [place] [address] [facility] 09/17/24 Simona Calloway APRN.THERMITE WELDER [address] [place] [address] [facility] 01/02/25 Blue Line Trimmer Relationship Specialty Start Date End Date Leandro Haines MD [address] [place] [address] PCP - General Family Medicine 03/29/18 Podlogar, Anita REHAB DIRECTOR OCCUPATIONAL THERAPIST.THERMITE WELDER [address] [place] [address] [facility] 09/17/24 iSmona Calloway APRN.THERMITE WELDER [address] [place] [address] [facility] 01/02/25 Blue Line Trimmer Relationship Specialty Start Date End Date Leandro Haines MD [address] [place] [address] PCP - General Family Medicine 03/29/18 Podlogar, ELVIN Howard.THERMITE WELDER [address] [place] [address] [facility] Medicine 09/17/24 Simona Calloway REHAB DIRECTOR OCCUPATIONAL THERAPIST.THERMITE WELDER [address] [place] [address] [facility] Medicine 01/02/25 Blue Line Trimmer Relationship Specialty Start Date End Date Leandro Haines MD [address] [place] [address] PCP - General Family Medicine 03/29/18 Podlogar, Anita, REHAB DIRECTOR OCCUPATIONAL THERAPIST.THERMITE WELDER [address] [place], [place] [address] [facility]/24 Simona Calloway, REHAB DIRECTOR OCCUPATIONAL THERAPIST.THERMITE WELDER [address] [place], [place] [address] [facility] 03/23/25 Blue Line Trimmer Relationship Specialty Start Date End Date Leandro Haines MD [address] [place], [place] [address] PCP - General Family Medicine 03/29/18 Podlogar, Anita, REHAB DIRECTOR OCCUPATIONAL THERAPIST.THERMITE WELDER [address] [place], [place] [address] [facility] 09/17/24 Simona Calloway, REHAB DIRECTOR OCCUPATIONAL THERAPIST.THERMITE WELDER [address] [place] [id number] [facility] 03/23/25 Team Status: Active Member Role/Relationship Status Dates Dr. Danie Haines MD Family Provider Active Dr. Danie Haines MD Primary Care Provider Acti ve Team Status: Inactive Member Role/Relationship Status Dates Dr. Danie Haines MD Primary Care Provider Acti ve Start: May 12, 2025 End: May 12, 2025 Dr. Shai Rodriguez MD Attending Provider Active S tart: May 12, 2025 End: May 12, 2025 Dr. Shai Rodriguez MD Referring Provider Active S tart: May 12, 2025 End: May 12, 2025 Team Status: Active Member Role/Relationship Status Dates Dr. Danie Haines MD Primary care physician Act stephan Team Status: Inactive Member Role/Relationship Status Dates Dr. Danie Haines MD Primary care physician Act stephan Start: May 12, 2025 End: May 12, 2025 Dr. Shai Rodriguez MD Attending physician Active Start: May 12, 2025 End: May 12, 2025 Dr. Shai Rodriguez MD Referring Provider Active S tart: May 12, 2025 End: May 12, 2025 Team Status: Inactive Member Role/Relationship Status Dates Dr. Danie Haines MD Primary care physician Act stephan Start: June 29, 2025 End: June 29, 2025 Dr. Danie Haines MD Referring Provider Active Start: June 29, 2025 End: June 29, 2025 Dr. Shai Rodriguez MD Attending physician Active Start: June 29, 2025 End: June 29, 2025 Reason for Visit (unrecogniz ed section and content) Reason Comments PT Discharge Specialty Diagnoses / Procedures Referred By Contac t Referred To Contact [facility] Diagnoses Acute pain of left knee Procedures PT REHAB FOLLOW UP ORDER THERAPEUTIC EXERCISES RE, EA 15 MIN. Leandro Haines MD [address] [place] [address] [facility] [address] [place] [id number] Referral ID Status Reason Start Date Expiration Date Visits Requested Visits Authorized [id number] Authorized PCP Requested Referral Auto-Generate d Referral 3 12/11/2023 8 8 Reason Comments Ear Problem Wax build up Left ea r Reason Comments Covid19 Concern Reason Comments Ingrown Toenail nail deformity Pain Established Patient Follow Up Reason Onset Date Comments Imm/Inj Immunizations 07/14/2023 Flu vaccination Reason Comments Left knee pain x2 weeks Reason Comments Results Reason Comments Physical Therapy Reason Comments Derm Problem Black spot to back t hat patient has noticed the last few weeks Reason Comments Follow Up Discuss cancer scree elizabet results from [employer] Reason Comments Fall Reason Comments Knee Pain Left knee-Patient ca me down onto left knee after tripping up steps on 01/26/24 Reason Comments Medicare Wellness Exam Reason Comments Appointment Reason Comments F/U 6 months Chest Pain Noticed palpitations last week 2 mornings for a few moments, and at lunch once Reason Comments Neck Pain X1 week; kept patien t up last night. Reason Comments Acute Visit neck stiffness Reason Comments Pre-Op Exam Cataract surgery Reason Comments Orders Reason Comments Follow Up (unrecognized sect ion and content) No Status Records FoundNo Status Records FoundNo Status Records Found INFORMATION SOURCE (unrecogn ized section and content) DATE CREATED AUTHOR 03/02/2025 [facility] DATE CREATED AUTHOR AUTHOR'S ORGANIZ ATION 07/19/2025 [facility] DATE CREATED AUTHOR AUTHOR'S ORGANIZ ATION 07/28/2025 [facility] FOR RECORDS PERTAINING TO PATIENTS WHO ARE OR HAVE BEEN ENROLLED IN A CHEMICAL DEPENDENCY/SUBSTANCEABUSE PROGRAM, SOME INFORMATION MAY BE OMITTED. This clinical summary was aggregated from multiple sources. Caution should be exercised in using it in the provision of clinical care. This summary normalizes information from multiple sources, and as a consequence, information in this document may materially change the coding, format and clinical context of patient data. In addition, data may be omitted in some cases. CLINICAL DECISIONS SHOULD BE BASED ON THE PRIMARY CLINICAL RECORDS. [facility]. provides no warranty or guarantee of the accuracy or completeness of information in this document.
--- NOTE | 2025-07-31 18:16 | STRESSREP_ITS ---
Stress Test Report Exercise myocardial perfusion stress test. 79-year-old man with a history of coronary artery disease. Stress protocol: Resting EKG demonstrates sinus bradycardia rhythm with a rate of 58 bpm, incomplete left bundle branch block, resting blood pressure is 152/80 mmHg. The patient exercised according to the regular Milind protocol for a total duration of 9 minutes attaining a maximum heart rate of 114 bpm which was 79% of maximum predicted heart rate; the maximum workload was 10.4 metabolic equivalents. At rest there were no ST or T wave changes noted to suggest ischemia and at peak exercise upsloping ST changes only were noted which did not meet the criteria for ischemia. No clinical angina was noted the test was terminated due to the target heart rate being achieved/fatigue. The peak blood pressure was 190/75 mmHg. Rate-pressure product was 21,400. Myocardial perfusion protocol. 11.5 mCi of technetium 99m sestamibi was injected at rest. The patient exercised according to regular Milind protocol for total duration of 9 minutes and at peak exercise 33.2 mCi of technetium 99m sestamibi was injected stress images were obtained stress and rest images were reconstructed in comparing the short axis vertical long and horizontal long axis. Gated images were also obtained. Perfusion SPECT analysis: Review of the stress images demonstrate normal uptake of tracer noted in all areas of the myocardium. There is however an area of reduced perfusion in the basal anteroseptal wall and apex on the stress images. The rest images de monstrate a similar pattern. The above is suggestive of a basal anteroseptal and apical infarct. No reversibility is noted suggest ischemia. Gated SPECT analysis: The gated ejection fraction is 50 to %. Conclusion: Normal exercise myocardial perfusion stress test at a high workload. Previous basal anteroseptal and apical infarct present.
== END | disposition home or self-care (01) ==
LOC: CVS 06:31
PROVIDERS: PCP Family Medicine; Referring Provider Internal Medicine Cardiovascular Disease; Visit Provider Internal Medicine Cardiovascular Disease
DX: I25.10 Atherosclerotic heart disease of native coronary artery without angina pectoris (principal); I42.8 Other cardiomyopathies; Z95.1 Presence of aortocoronary bypass graft
CPT/HCPCS: 78452; 93017; 93306; A9500; Q9957; A4216; C8929